=== PATIENT | male | born 1950 | race Caucasian/White ===

== ENCOUNTER 2019-04-04 11:26 | Day surgery (SDC) | payer MEDICARE, OTHER, SELFPAY ==
--- NOTE | 2019-04-04 | PATH_ITS ---
[facility] Accession Number: [id number] . 01 Material submitted: . PART A: colon - ASCENDING COLON POLYP PART B: colon - TRANSVERSE COLON POLYP PART C: colon - DESCENDING COLON POLYP X2 PART D: colon - SIGMOID POLYP X5 . 02 Diagnosis: A. Ascending Colon, Polyp, Biopsy: Tubular adenoma. . B. Transverse Colon, Polyp, Biopsy: Tubular adenoma. . C. Descending Colon, Polyps x2, Biopsies: Tubular adenomas. . D. Sigmoid Colon, Polyps x5, Biopsies: Tubular adenoma in five of six fragments. Hyperplastic poylyp in one fragment. [facility] . 02 Electronically signed: . Ifrah Farrell MD, Pathologist NPI- [id number] . 01 Gross description: . Part A: ASCENDING COLON POLYP: Received in formalin is 1 fragment(s) of charlton, soft tissue measuring 0.6 x 0.4 x 0.3 cm which is entirely submitted and submitted entirely in 1 cassette(s) Part B: TRANSVERSE COLON POLYP: Received in formalin is 1 fragment(s) of charlton, soft tissue measuring 0.6 x 0.4 x 0.3 cm which is entirely submitted and submitted entirely in 1 cassette(s) Part C: DESCENDING COLON POLYP X2: Received in formalin are 2 fragment(s) of charlton, soft tissue measuring 0.3 x 0.3 x 0.3 cm to 0.6 x 0.6 x 0.5 cm which is entirely submitted and submitted entirely in 1 cassette(s). Part D: SIGMOID POLYP X5: Received in formalin are multiple fragment(s) of charlton, soft tissue measuring 0.1 x 0.1 x 0.1 cm to 0.5 x 0.5 x 0.5 cm which is entirely submitted and submitted entirely in 1 cassette(s) /[facility] . 02 Pathologist provided ICD-10: D12.5 . 02 CPT . 060953, 964061, 284887, [id number] Performed at: 01 [facility] [address] [id number] MD Rickie Bustillos MD Phone: [phone] Performed at: [id number] [place], [place] [id number] MD Ifrah Farrell MD Phone: [phone]
[2019-04-04 11:54] VITALS: BP 152/92; PULSE 58; RESP 18; TEMP 37; O2SAT 99; BMI 24.3
[2019-04-04] MEDS: SODIUM CHLORIDE 0.9% 1,000 ML 70 ML IV (11:59)
--- NOTE | 2019-04-04 12:09 | PM.HP.1 ---
History of Present Illness Date Patient Seen: 04/04/19 Time Patient Seen: 12:00 Chief complaint: [id number] Narrative: Patient is a pleasant 58-year-old male who presented for colonoscopy. He does have a personal history of colon polyps, his last colonoscopy was in 2003 at [facility]. His mother had colon cancer in her 60s. He denies rectal bleeding. He denies diarrhea. He does have occasional constipation. Patient History Social History household members: spouse Family & Social History Social History: household members spouse Meds Home Medications Medication Instructions Recorded Confirmed Type amlodipine 5 mg tablet 2.5 mg PO DAILY 11/08/18 04/04/19 History carbamazepine 200 mg tablet 200 mg PO BID tab 11/08/18 04/04/19 History lamotrigine 200 mg tablet 200 mg PO BID 11/08/18 04/04/19 History levothyroxine 50 mcg capsule 50 mcg PO DAILY 11/08/18 04/04/19 History lithium carbonate 150 mg capsule 150 mg PO QID cap 11/08/18 04/04/19 History quetiapine 50 mg tablet 100 mg PO BID 11/08/18 04/04/19 History Allergies Allergy/AdvReac Type Severity Reaction Status Date / Time No Known Drug Allergies Allergy Verified 11/08/18 14:22 Review of Systems Review of Systems All systems reviewed & are unremarkable except as noted in HPI and below Exam Vital Signs (past 8 hours): - 04/04/19 11:54 Temperature 98.6 F Pulse Rate 58 L Respiratory Rate 18 Blood Pressure 152/92 H Pulse Oximetry 99 Oxygen Delivery Method Room Air Const General: cooperative, healthy appearing, comfortable, well developed and well groomed Orientation: oriented x3 Resp Effort & Inspection: normal respiratory effort and able to speak in complete sentences Auscultation: clear to auscultation bilaterally Cardio Rate: regular rate Rhythm: regular rhythm Heart Sounds: S1 normal and S2 normal GI Palpation: soft and no hepatosplenomegaly Auscultation: normal bowel sounds Assessment & Plan Assessment & Plan narrative: 1. Personal history of colon polyps (2003) 2. Family history colon cancer -mother in her 60s -Recommend colonoscopy Regarding the procedure(s), the risks and potential complications, benefits, and alternatives (including not doing the procedure) were discussed with the patient. The risks include but are not limited to bleeding, splenic injury, infection, perforation which may require surgical intervention, missed lesions, and adverse reactions to sedative medicines. After a question and answer period, the patient agreed to proceed with the procedure(s) and gives informed consent.
--- NOTE | 2019-04-04 12:15 | SUR.OPER ---
GLASSES IN LABELED BAG TO PACU WITH PATIENT
[2019-04-04] MEDS: fentaNYL 250 MCG/5 ML INJ IV (12:28)
[2019-04-04] MEDS: MIDAZOLAM 5 MG/5 ML VIAL IV (12:28)
--- NOTE | 2019-04-04 12:46 | SUR.OPER ---
ERBE NOT USED
--- NOTE | 2019-04-04 12:49 | SUR.OPER ---
ANA USED LATER IN PROCEDURE. [id number] SE T AT 3 AND 2
[2019-04-04 13:05] VITALS: BP 173/84; PULSE 61; RESP 14; TEMP 36.9; O2SAT 96
[2019-04-04 13:10] VITALS: BP 141/84; PULSE 55; RESP 12; TEMP 36.9; O2SAT 100
--- NOTE | 2019-04-04 13:13 | PM.OP.ENDO ---
Operative Date/Time/Diagnoses Date of procedure: 04/04/19 Time of procedure: 12:14 Procedure Notes Procedure in detail: Surgeon: Anika Beckett DO Procedure: Colonoscopy with polypectomy Preoperative diagnosis: Personal history of colon polyps, family history colon cancer in first-degree relative Postoperative diagnosis: 9 colon polyps scattered from the ascending to the sigmoid colon Medications: Conscious sedation using 5 mg IV of Midazolam and 100 mcg IV of Fentanyl Preanesthesia Assessment An H and P was performed/updated and the Px?s ASA class is 2. The procedure was discussed in detail with the patient. The potential risks and complications including infection, bleeding, missed lesions, perforation, need for surgery in case of perforation, prolonged hospital stay, and were explained. A brief question and answer period was allotted and once all questions were answered, informed consent was obtained. The patient was brought back to the procedure room and placed on standard monitoring. The patient?s vital signs were monitored continuously throughout the entire procedure. Prior to starting, a timeout was performed to confirm the patient?s identity, allergies, medications, and procedure. Procedure in detail The patient was placed in left lateral decubitus position and once adequate sedation was obtained a MAURICIO was performed. The digital rectal examination did not reveal any palpable lesions. The tip of the colonoscope was placed in the anal canal and advanced without difficulty all the way to the cecum which was identified by the appendiceal orifice and the ileocecal valve. Careful examination of all hill of the colon was performed with irrigation of any residual stool. Patient was noted to have a total of 9 colon polyps these were scattered throughout the entire colon. He had 1 colon polyp in the ascending colon, 1 polyp in the transverse colon, 2 colon polyps in the descending colon, 5 colon polyps in the sigmoid colon. These ranged in size from 3 mm to 16 mm. Three colon polyps were removed with hot snare, 2 colon polyps were removed with cold biopsy, the remainder of the colon polyps were removed with cold snare. Diverticulosis was noted scattered throughout the sigmoid colon. The patient tolerated the procedure well and will be brought back to the recovery area to be discharged once criteria are met. The prep was judged to be good/excellent and adequate to identify polyps less than 5 mm. The withdrawal time was 29min 12sec. The total physician intraservice time was 45min. Complications There were no complications and estimated blood loss was minimal. Recommendations: Resume previous diet Continue outPx medications Follow up pathology results Repeat colonoscopy will be determined after pathology results are reviewed An emergency contact number was given to the patient for any complications related to the procedure
[2019-04-04 13:14] VITALS: BP 152/83; PULSE 59; RESP 15; TEMP 36.9; O2SAT 100
[2019-04-04 13:25] VITALS: BP 150/82; PULSE 60; RESP 16; TEMP 36.9; O2SAT 100
== END 2019-04-04 13:30 | disposition home or self-care (01) ==
PROVIDERS: PCP Internal Medicine; Visit Provider Student in an Organized Health Care Education/Training Program
PROC: 0DJD8ZZ Inspection of Lower Intestinal Tract, Via Natural or Artificial Opening Endoscopic (ICD-10-PCS; CPT 45378; principal; 2019-04-04 12:30)
DX: Z86.010 Personal history of colon polyps (principal); Z80.0 Family history of malignant neoplasm of digestive organs; D12.5 Benign neoplasm of sigmoid colon; D12.2 Benign neoplasm of ascending colon; D12.3 Benign neoplasm of transverse colon; D12.4 Benign neoplasm of descending colon
CPT/HCPCS: 45385; 45380; 88305; J2250; J3010

== ENCOUNTER → 2019-07-25 09:54 | Outpatient (CLI) | payer MEDICARE, OTHER, SELFPAY ==
[2019-07-25 10:50] LABS: BUN Creatinine Ratio 17.7 (6-22); Blood Urea Nitrogen 23 mg/dL (9-20); Carbon Dioxide 32 mmol/L (22-32); Chloride 105 mmol/L (98-107); Estimated Glomerular Filt Rate 55.2 mL/min (>60); Glucose 98 mg/dL (80-110); HEMOLYSIS < 15 (0-50); Potassium 4.8 mmol/L (3.4-5.1); Sodium 141 mmol/L (137-145)
[2019-07-25 10:59] LABS: Lithium 1.1 mmol/L (0.6-1.2)
[2019-07-25 11:33] LABS: Thyroid Stimulating Hormone 2.51 uIU/mL (0.47-4.68)
== END ==
PROVIDERS: PCP Internal Medicine; Visit Provider Internal Medicine
DX: F31.70 Bipolar disorder, currently in remission, most recent episode unspecified (principal)
CPT/HCPCS: 36415; 80048; 80178; 84443

== ENCOUNTER → 2020-08-15 19:35 | Outpatient (ROUT) | payer MEDICARE, OTHER, SELFPAY ==
[2020-08-15 19:52] LABS: Add Manual Diff / Slide Review NO; Basophils Absolute Auto 0 /uL (0-100); Basophils Percent Auto 0.7 % (0-2); Eosinophils Absolute Auto 200 /uL (0-450); Eosinophils Percent Auto 3.7 % (2-4); Hematocrit 43.8 % (41-53); Hemoglobin 14.7 g/dL (13.5-17.5); Lymphocytes Absolute Auto 1700 /uL (1100-4500); Lymphocytes Percent Auto 26.1 % (25-40); Mean Corpuscular HGB Conc 33.5 % (30-36); Mean Corpuscular Hemoglobin 33.1 PG (26-34); Monocytes Absolute Auto 400 /uL (0-900); Monocytes Percent Auto 5.9 % (3-14); Neutrophils Absolute Auto 4100 /uL (1500-7000); Neutrophils Percent Auto 63.6 % (50-75); Platelet Count 212 X10^3/uL (150-400); Red Blood Cell Count 4.42 X10^6/uL (4.5-5.9); Red Cell Distribution Width 12.8 % (11.6-14.8); White Blood Cell Count 6.4 X10^3/uL (4.5-11.0)
[2020-08-15 20:04] LABS: Lithium 1.3 mmol/L (0.6-1.2)
[2020-08-15 20:07] LABS: BUN Creatinine Ratio 15.5 (6-22); Blood Urea Nitrogen 22 mg/dL (9-20); Calcium 9.7 mg/dL (8.4-10.2); Carbon Dioxide 30 mmol/L (22-32); Chloride 108 mmol/L (98-107); Cholesterol 240 mg/dL (140-199); Estimated Glomerular Filt Rate 49.7 mL/min (>60); Glucose 92 mg/dL (80-110); HDL Cholesterol 71 mg/dL (40-60); HEMOLYSIS < 15 (0-50); LDL Cholesterol Calculated 125 mg/dL (<100); Potassium 4.6 mmol/L (3.4-5.1); Sodium 142 mmol/L (137-145); Triglycerides 222 mg/dL (35-150)
[2020-08-15 20:36] LABS: Prostate Specific Antigen 1.25 ng/mL (0.10-4.00)
[2020-08-15 20:37] LABS: TSH w/ Reflex to FT4 2.05 uIU/mL (0.47-4.68)
[2020-08-15 20:55] LABS: Vitamin B12 466 pg/mL (239-931)
[2020-08-19 17:18] LABS: Alpha-1-Globulin 0.2 g/dL (0.0-0.4); Alpha-2-Globulin 0.7 g/dL (0.4-1.0); Gamma Globulin 0.7 g/dL (0.4-1.8); Globulin Total 2.5 g/dL (2.2-3.9); Protein, Total 6.5 g/dL (6.0-8.5)
== END ==
PROVIDERS: PCP Internal Medicine; Visit Provider Internal Medicine
DX: N18.30 Chronic kidney disease, stage 3 unspecified (principal); R73.01 Impaired fasting glucose; E78.2 Mixed hyperlipidemia; E53.8 Deficiency of other specified B group vitamins; E03.9 Hypothyroidism, unspecified; D47.2 Monoclonal gammopathy; N40.0 Benign prostatic hyperplasia without lower urinary tract symptoms; F31.70 Bipolar disorder, currently in remission, most recent episode unspecified
CPT/HCPCS: 80048; 80061; 80178; 82607; 83036; 84153; 84155; 84165; 84443; 85025

== ENCOUNTER → 2020-08-21 12:05 | Outpatient (CLI) | payer MEDICARE, OTHER, SELFPAY ==
--- NOTE | 2020-08-21 | DI.CT.S_ITS ---
PROCEDURE: CT HEAD/BRAIN WO CON INDICATIONS: Repeated falls TECHNIQUE: Noncontrast 4.5 mm thick angled axial sections acquired from the foramen magnum to the vertex, with coronal and sagittal reformats. For radiation dose reduction, the following was used: automated exposure control, adjustment of mA and/or kV according to patient size. COMPARISON: None. FINDINGS: Image quality: Excellent. CSF spaces: Basal cisterns are patent. No extra-axial fluid collections. The ventricles are symmetric in size and shape. Brain: No intracranial bleeds or masses. There is cerebral volume loss for age, with resultant ventricular and sulcal prominence. There are periventricular and deep white matter chronic small vessel ischemic changes. There is intracranial internal carotid artery atherosclerosis. Skull and face: Calvarium and visualized facial bones appear intact, without suspicious lesions. Sinuses: Partially visualized mucous retention cyst versus polyp noted in the left maxillary sinus. The mastoids are clear. IMPRESSION: 1. No acute intracranial disease process. 2. No intracranial hemorrhage. Dictated by: Isabel Saldana MD, PhD on 08/21/2020 at 12:27 Approved by: Isabel Saldana MD, PhD on 08/21/2020 at 12:30
[2020-08-25 15:08] LABS: Immunoglobulin A, Serum 106 mg/dL (61-437); Immunoglobulin G,Serum 530 mg/dL (603-1613); Immunoglobulin M, Serum 224 mg/dL (20-172)
--- NOTE | 2020-08-27 14:47 | ONC.MSW ---
Description: New Referral Navigation Reason for Referral: Monoclonal Gammopathy-rule out Myeloma Activity: Reviewed this referral for medical status, acuity, and immediate needs. Recent labwork showed protein in the blood, which is a new finding. Pt has multiple health issues. He was assessed at the /Neurology to have a lithium or carbamazepine induced tremor, caused by long-term use as prescribed for his bipolar disorder. He has a tremor, which has been reduced with the use of propranalol, however, he has had several falls over the last few months, is using a cane intermittently, has a slow, shuffling gait, poor balance, stiffness, soft speech, difficulty standing and fear of falling. Parkinson's was ruled out, even though he noted that both his father and paternal aunt had Parkinson's. He also has longstanding chronic kidney disease due to the lithium use. He presented w/Dr. Larios in no acute distress or immediate needs. Pt is also , retired early due to bipolar disorder, which has presented as severe depression, manic episodes, and a few suicide attempts at the time of diagnosis (late ). Forwarded to scheduling for next available initial consult visit.
== END ==
PROVIDERS: PCP Internal Medicine; Referring Provider Internal Medicine; Visit Provider Internal Medicine
DX: R29.6 Repeated falls (principal)
CPT/HCPCS: 36415; 70450; 82784; 84155; 86334

== ENCOUNTER → 2020-09-24 16:32 | Outpatient (CLI) | payer MEDICARE, OTHER, SELFPAY ==
[2020-09-24 17:22] LABS: Lactate Dehydrogenase 400 U/L (313-618); Uric Acid 5.4 mg/dL (3.5-8.5)
[2020-09-25 14:28] LABS: Free Kappa Lt Chains, Serum 24.9 mg/L (3.3-19.4); Free Lambda Lt Chains,Serum 10.1 mg/L (5.7-26.3)
[2020-09-26 15:38] LABS: M-Spike % Not Observed % (Not Observed); Total Urine Protein < 4.0 mg/dL (Not Estab.)
== END ==
PROVIDERS: PCP Internal Medicine; Referring Provider Internal Medicine; Visit Provider Internal Medicine
DX: D47.2 Monoclonal gammopathy (principal)
CPT/HCPCS: 36415; 83615; 83883; 84156; 84166; 84550; 86335

== ENCOUNTER → 2020-10-02 11:21 | Outpatient (CLI) | payer MEDICARE, OTHER, SELFPAY ==
[2020-10-04 12:02] LABS: Protein (Total) Urine Random 14 mg/dL (0-12)
[2020-10-04 12:11] LABS: Collection Time Urine 24 Hours; Total Protein 24 Hour Urine 672 mg/day (42-225); Total Volume Urine 4800 mL
== END ==
PROVIDERS: PCP Internal Medicine; Referring Provider Internal Medicine; Visit Provider Internal Medicine
DX: D47.2 Monoclonal gammopathy (principal)
CPT/HCPCS: 84156

== ENCOUNTER → 2020-10-22 16:20 | Oncology outpatient (ONC) | payer MEDICARE, OTHER, SELFPAY ==
[2020-09-24 15:32] VITALS: BP 134/93; PULSE 50; RESP 18; TEMP 36.2; O2SAT 100
--- NOTE | 2020-09-24 16:15 | P.CONONC_ITS ---
History of Present Illness - Data of Consult Primary Care Provider: Og Larios MD - Consult Narrative Narrative: Tunde Hale is a 69 year old male referred for further evaluation of an IgM monoclonal gammopathy. He has a long history of tremors for which she was star glen on propranolol with improvement. He was seen by Neurology about 8 months ago when he started the propranolol and had concerns about Parkinson's which was not confirmed at that visit. He notes that over the past 6 months he has been having he increasing memory loss, confusion and nervousness. The symptoms have waxed and waned for several years but her worse over the last 6 months. He also notes that his tremors are more of a problem. He is having increasing difficulty with his balance and has had frequent falls. He is now starting to use a cane recently. He notes that he has pain in his back that is worse when he gets up in the morning better when he moves around and takes aspirin. He has been constipated but that has not changed over the past several years but does not have any urinary symptoms. He has dry skin but no rash. He does not have any lumps or bumps anywhere. He has not had anorexia or unintended weight loss, nausea, vomiting, mouth sores, trouble swallowing, cough or shortness of breath. All other systems are negative. He recently saw Dr. Og Larios and due to concerns about peripheral neuropathy he had lab tests done including B12 and folate were normal. Protein electrophoresis showed a faint band in the gamma region. Subsequent immunofixation of the serum showed a IgM kappa paraprotein. IgG was 530 (lower limit of normal 603), IgM was 224 (upper end of normal 172) and IgA was normal at 108. TSH and PSA were normal as was a CBC. Metabolic panel at Dr. Larios is visit showed a creatinine of 1.42 which is a chronic finding. Because of his m onoclonal paraprotein in the setting of worsening neurologic issues he is now referred for hematology oncology consultation. Past medical history 1. Previous surgeries include tonsillectomy 2. His mother had colorectal cancer but family history is otherwise negative 3. He has been a 1 pack-a-day smoker over the years who quit in 2018. He is a former drinker but not currently. He is accompanied by his who is very supportive. 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 He was very active but has been much less active over the last 6 months as his neurologic symptoms have worsened. 4. No known drug allergies 5. Current medications. Include aspirin 325 mg daily, carbamazepine 200 mg twice a day, lamotrigine gain ER 200 mg twice a day, Synthroid 0.05 mg daily, lithium 150 mg 5 times a day, as needed loratadine, propranolol 10 mg twice a day, quietiapine 100 mg at bedtime, terbinafine 250 mg daily, vitamin-D 46128 units once a week 6. History of bipolar affective disorder 7. Chronic kidney disease 8. Hypothyroidism, on replacement 9. History of eczematous dermatitis 10. He has a history of high blood pressure 11. He denies diabetes, rheumatic fever, tuberculosis, heart attacks, strokes, stomach ulcers, pneumonia or any kind of cancer. CC: Stuart Aragon MD Home Medications and Allergies Home Medications Medication Instructions Recorded Confirmed Type carbamazepine 200 mg tablet 200 mg PO BID tab 11/08/18 09/24/20 History lamotrigine 200 mg tablet 200 mg PO BID 11/08/18 09/24/20 History levothyroxine 50 mcg capsule 50 mcg PO DAILY 11/08/18 09/24/20 History lithium carbonate 150 mg capsule 150 mg PO 5XD cap 11/08/18 09/24/20 History quetiapine 50 mg tablet 100 mg PO BID 11/08/18 09/24/20 History aspirin 325 mg PO DAILY 09/24/20 09/24/20 History desonide 1 applic TOPICAL DAILY 09/24/20 09/24/20 History loratadine [Allerclear] 10 mg PO DAILY 09/24/20 09/24/20 History propranolol 10 mg PO QID 09/24/20 09/24/20 History Allergies Allergy/AdvReac Type Severity Reaction Status Date / Time No Known Drug Allergies Allergy Verified 11/08/18 14:22 Review of Systems - Patient Self-Reported Symptoms SR Gastrointestinal issues: Constipation SR Musculoskeletal issues: Muscle weakness, Back or neck pain, Cold hands or feet, Difficulty walking SR Neuro issues: Lightheaded/dizzy, Tremors or shaking, Difficulty balancing Exam Vital signs: Vital Signs Temp Pulse Resp BP Pulse Ox 09/24/20 15:32 97.1 F L 50 L 18 134/93 H 100 Intake and Output 09/24/20 09/24/20 09/24/20 07:59 15:59 23:59 Other: Weight 76.7 kg Patient Weight 09/24/20 23:59 Weight 76.7 kg Narrative: He was awake, alert and oriented x3. He was able to get from the chair to the examination table by himself but was unsteady during this process. There was no lymph node enlargement in the cervical, supraclavicular, axillary, inguinal femoral regions. Lungs were clear. The abdomen was soft and nontender without any palpable hepatosplenomegaly or masses. Neurologic exam showed nystagmus that did not extinguish on extreme lateral gaze bilaterally. He also had nystagmus with upward gaze that did extinguish. Extraocular movements were otherwise intact. He reported decreased sensation in his mid walker on the right to pinprick but it was not consistently demonstrated on exam. He did not have consistent findings of a stocking-glove decrease in pinprick or light touch to correspond to a peripheral neuropathy. He had weakness of his left foot. He was not able to rise up on to his left heel toe walk wears he could on the right. Upper extremity strength was normal. Reflexes were 1+ and symmetric. Assessment and Plan (1) MGUS (monoclonal gammopathy of unknown significance) Status: Acute Mr. Hale has a low level IgM monoclonal gammopathy. He does have mild suppression of his IgG levels. His CBC is normal. I explained that this finding could be part of the normal aging process. Monoclonal gammopathy of undetermined significance is seen in 1-2% of patients over the age of 50, 30-40% of patients over the age of 80. When it is part of the normal aging process, IgG subtype is most common and the paraprotein is typically present in a small amount. MGUS can also be associated with underlying lymphoproliferative disorders. Non-Hodgkin's lymphoma such as lymphoplasmacytic lymphoma or Waldenstrm's macroglobulinemia, or small lymphocytic lymphoma/chronic lymphocytic leukemia can be associated with this. Lymphoproliferative disorders can also be associated with peripheral neuropathy. He his exam is not suggestive of this although he does have abnormal neurologic findings. Will evaluate his IgM monoclonal paraprotein further with a 24 hour urine for protein, urine protein electrophoresis, free light chain assay, LDH and uric aci d. He will return afterwards to review results. If there is persistent concern about a lymphoproliferative disorder, a bone marrow examination would be an appropriate next step. We also discussed the fact that his neurologic findings were not typical of a lymphoproliferative disorder associated with a monoclonal paraprotein. He will follow-up with his neurologist, Dr. Ifrah Piña, at [facility] and try to get this appointment in the near future. I will plan to see him back in mid October when the results of today's screening labs will be available and hopefully he will have also had a chance to follow- up with Dr. Piña. Further plans such as a bone marrow examination will be made at that time and he was instructed to call if he has any problems or concerns that arise in the interim. I personally spent 49 minutes in today's [id number] visit with greater than 50% of the time spent in counseling regarding the issues outlined above. Impression: 1. IgM monoclonal gammopathy demonstrated on immunofixation, faint band on protein electrophoresis 2. Neurologic findings as noted above, not consistent with an uncomplicated peripheral neuropathy 3. Progressive weakness, poor balance, and falls over the last [address] scan from August 21 was negative 4. Other medical problems as listed above Recommendations: 1. 24 hour urine for protein, urine immunofixation, and urine protein electrophoresis 2. Serum free light chain assay, LDH and uric acid 3. Patient was advised to follow-up with his neurologist, Dr. Ifrah Piña, as soon as possible 4. Return here mid October to follow up on labs and his neurology assessment 5. Further plan such as a bone marrow examination to be considered depending upon his status at that time. Thank Dr. Og Larios for referring this very pleasant and interesting patient.
[2020-10-22 16:51] VITALS: BP 134/83; PULSE 50; RESP 18; TEMP 36.6; O2SAT 100
--- NOTE | 2020-10-22 18:14 | ONC.PN ---
PN -Subjective Interval history: Tunde Hale is a 70 year old male seen for follow-up of an IgM monoclonal gammopathy. He has a long history of tremors for which she was started on propranolol with improvement. He was seen by Neurology about 8 months ago when he started the propranolol and had concerns about Parkinson's which was not confirmed at that visit. He notes that over the past 6 months he has been having he increasing memory loss, confusion and nervousness. The symptoms have waxed and waned for several years but her worse over the last 6 months. He also notes that his tremors are more of a problem. He is having increasing difficulty with his balance and has had frequent falls. He is now starting to use a cane recently. He notes that he has pain in his back that is worse when he gets up in the morning better when he moves around and takes aspirin. He has been constipated but that has not changed over the past several years but does not have any urinary symptoms. He has dry skin but no rash. He does not have any lumps or bumps anywhere. He has not had anorexia or unintended weight loss, nausea, vomiting, mouth sores, trouble swallowing, cough or shortness of breath. All other systems are negative. He recently saw Dr. Og Larios and due to concerns about peripheral neuropathy he had lab tests done including B12 and folate were normal. Protein electrophoresis showed a faint band in the gamma region. Subsequent immunofixation of the serum showed a IgM kappa paraprotein. IgG was 530 (lower limit of normal 603), IgM was 224 (upper end of normal 172) and IgA was normal at 108. TSH and PSA were normal as was a CBC. Metabolic panel at Dr. Larios is visit showed a creatinine of 1.42 which is a chronic finding. Because of his monoclonal paraprotein in the setting of worsening neurologic issues he was seen in consultation on September 24. Additional studies were obtained and he comes in today to review results. Past medical history 1. Previous surgeries include tonsillectomy 2. His mother had colorectal cancer but family history is otherwise negative 3. He has been a 1 pack-a-day smoker over the years who quit in 2018. He is a former drinker but not currently. He is accompanied by his who is very supportive. 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 He was very active but has been much less active over the last 6 months as his neurologic symptoms have worsened. 4. No known drug allergies 5. Current medications. Include aspirin 325 mg daily, carbamazepine 200 mg twice a day, lamotrigine gain ER 200 mg twice a day, Synthroid 0.05 mg daily, lithium 150 mg 5 times a day, as needed loratadine, propranolol 10 mg twice a day, quietiapine 100 mg at bedtime, terbinafine 250 mg daily, vitamin-D 13191 units once a week 6. History of bipolar affective disorder 7. Chronic kidney disease 8. Hypothyroidism, on replacement 9. History of eczematous dermatitis 10. He has a history of high blood pressure 11. He denies diabetes, rheumatic fever, tuberculosis, heart attacks, strokes, stomach ulcers, pneumonia or any kind of cancer. - Patient Self-Reported Symptoms SR Gastrointestinal issues: Constipation SR Musculoskeletal issues: Muscle weakness, Back or neck pain, Cold hands or feet, Difficulty walking SR Neuro issues: Tremors or shaking, Difficulty balancing Home Medications and Allergies Home Medications Medication Instructions Recorded Confirmed Type carbamazepine 200 mg tablet 200 mg PO BID tab 11/08/18 09/24/20 History lamotrigine 200 mg tablet 200 mg PO BID 11/08/18 09/24/20 History levothyroxine 50 mcg capsule 50 mcg PO DAILY 11/08/18 09/24/20 History lithium carbonate 150 mg capsule 150 mg PO 5XD cap 11/08/18 09/24/20 History quetiapine 50 mg tablet 100 mg PO BID 11/08/18 09/24/20 History aspirin 325 mg PO DAILY 09/24/20 09/24/20 History desonide 1 applic TOPICAL DAILY 09/24/20 09/24/20 History loratadine [Allerclear] 10 mg PO DAILY 09/24/20 09/24/20 History propranolol 10 mg PO QID 09/24/20 09/24/20 History Allergies Allergy/AdvReac Type Severity Reaction Status Date / Time No Known Drug Allergies Allergy Verified 11/08/18 14:22 Exam Vital signs: Vital Signs Temp Pulse Resp BP Pulse Ox 10/22/20 16:51 98 F 50 L 18 134/83 100 Intake and Output 10/22/20 10/22/20 10/22/20 07:59 15:59 23:59 Other: Weight 75.8 kg Patient Weight 10/22/20 23:59 Weight 75.8 kg Narrative: He was awake, alert and oriented x3. He was in no acute distress. Assessment and Plan (1) MGUS (monoclonal gammopathy of unknown significance) Status: Acute Mr. Hale has a low level IgM monoclonal gammopathy. He does have mild suppression of his IgG levels. His CBC is normal. Additional testing including a urine immunofixation, uric acid and LDH were normal. Free light change assay showed a ratio of 2.47 which is minimally elevated. These findings are consistent with monoclonal gammopathy of undetermined significance. He does have neurologic findings but he did not have a simple peripheral neuropathy picture when he was examined at his initial consultation. He has a follow-up appoint with his neurologist next week and I suggested that he pursue that as the next step. If there remain some concern regarding a possible underlying lymphoproliferative disorder, we could do further testing with a bone marrow examination. However, I think it would be low yield at this point with regard to his neurologic issues. He will see his neurologist next week. I would like to see him back when his neurology assessment is complete. He will let us know when that occurs and will have him return at that time. He will need ongoing follow-up of his MGUS. Impression: 1. IgM monoclonal gammopathy demonstrated on immunofixation, faint band on protein electrophoresis 2. Neurologic findings not consistent with an uncomplicated peripheral neuropathy on my exam at the time his initial consultation 3. Progressive weakness, poor balance, and falls over the last [address] scan from August 21 was negative 4. Other medical problems as listed above 5. Urine immunofixation, LDH were normal with a mild elevation of his free light chain ratio and no clear evidence of an underlying lymphoproliferative disorder Recommendations: 1. He will follow-up with his neurologist 2. Return here afterwards to assess whether further workup of his MGUS would be appropriate I spent 8 minutes in chart review, 14 minutes with the patient, 2 minutes writing orders, and 6 minutes in documentation for a total of 30 minutes..
== END ==
PROVIDERS: PCP Internal Medicine; Referring Provider Internal Medicine; Visit Provider Internal Medicine
DX: D47.2 Monoclonal gammopathy (principal); R25.1 Tremor, unspecified; I12.9 Hypertensive chronic kidney disease with stage 1 through stage 4 chronic kidney disease, or unspecified chronic kidney disease; N18.9 Chronic kidney disease, unspecified; E03.9 Hypothyroidism, unspecified; M62.81 Muscle weakness (generalized); F31.9 Bipolar disorder, unspecified; Z91.81 History of falling; Z87.891 Personal history of nicotine dependence
CPT/HCPCS: 36415; 83615; 83883; 84156; 84166; 84550; 86335; 99204; 99214

== ENCOUNTER → 2020-12-04 10:32 | Outpatient (CLI) | payer MEDICARE, OTHER, SELFPAY ==
[2020-12-04] MEDS: COVID-19 VACC #1, MRNA(MOD) 100 MCG/0.5 ML VIAL IM (10:37)
== END ==
PROVIDERS: PCP Internal Medicine; Visit Provider Internal Medicine
DX: Z23 Encounter for immunization (principal)
CPT/HCPCS: 0011A; 91301

== ENCOUNTER → 2021-01-01 09:01 | Outpatient (CLI) | payer MEDICARE, OTHER, SELFPAY ==
[2021-01-01] MEDS: COVID-19 VACC #2, MRNA(MOD) 100 MCG/0.5 ML VIAL IM (09:06)
== END ==
PROVIDERS: PCP Internal Medicine; Visit Provider Internal Medicine
DX: Z23 Encounter for immunization (principal)
CPT/HCPCS: 0012A; 91301

== ENCOUNTER 2021-01-23 15:04 | Emergency (ER) | payer MEDICARE, OTHER, SELFPAY ==
[2021-01-23 15:12] VITALS: BP 146/80; PULSE 57; RESP 17; TEMP 36.2; O2SAT 99
--- NOTE | 2021-01-23 15:15 | DI.RAD.S_ITS ---
PROCEDURE: XR ACUTE ABDOMEN SERIES INDICATIONS: Abdominal pain. TECHNIQUE: One view chest and two views of the abdomen were acquired. COMPARISON: None. FINDINGS: Surgical changes and devices: None. Chest: Lungs are clear. Heart size is normal. No pleural effusions. No pneumoperitoneum. Abdomen: Moderate fecal debris noted throughout the colon and rectum without evidence of bowel obstruction. Bones: Degenerative changes noted lumbar spine. No osseous lesion. IMPRESSION: No evidence of bowel obstruction. No acute cardiopulmonary findings Moderate fecal debris present throughout the colon Degenerative lumbar spine Dictated by: Volodymyr Hough M.D. on 01/23/2021 at 16:00 Approved by: Volodymyr Hough M.D. on 01/23/2021 at 16:05
[2021-01-23 16:27] LABS: PTT Partial Thromboplastin Tim 34 SECONDS (26.4-36.2)
[2021-01-23 16:28] LABS: Alanine Aminotransferase 7 IU/L (<50); Albumin 4.3 g/dL (3.5-5.0); Albumin Globulin Ratio 1.7 (1.0-2.8); Alkaline Phosphatase 101 U/L (38-126); Aspartate Aminotransferase 26 IU/L (17-59); BUN Creatinine Ratio 10.7 (6-22); Bilirubin Total 0.5 mg/dL (0.2-1.3); Blood Urea Nitrogen 16 mg/dL (9-20); Calcium 9.8 mg/dL (8.4-10.2); Carbon Dioxide 31 mmol/L (22-32); Chloride 104 mmol/L (98-107); Estimated Glomerular Filt Rate 46.9 mL/min (>60); Globulin 2.6 g/dL (1.7-4.1); Glucose 93 mg/dL (80-110); HEMOLYSIS < 15 (0-50); Lipase 97 U/L (23-300); Potassium 4.1 mmol/L (3.4-5.1); Sodium 142 mmol/L (137-145); Total Protein 6.9 g/dL (6.3-8.2)
--- NOTE | 2021-01-23 16:29 | ED.ABDPAIN ---
HPI - Abdominal Pain General Chief Complaint: Abdominal Pain Stated Complaint: BOWEL BLOCKAGE 2WKS Time Seen by Provider: 01/23/21 16:29 Source: patient and family Mode of arrival: Ambulatory Limitations: no limitations History of Present Illness HPI narrative: This is a 70-year-old male comes emergency department with concern for bowel obstruction. Patient has been constipated for about 10-12 days. Patient denies any, he had nausea and vomiting yesterday and for a pretty much everything he eaten for the past 12 hours. He denies any abdominal is mainly mildly bloated or distended. He states he has passed a small amount of gas but it has been decreasing in amount been urinating regularly. He states he has been eating regularly. His states she pushes fluids and encouraged him to hydrate regularly. Patient states he typically has a bowel movement twice weekly. He tried Colace yesterday and MiraLax and then immediately threw up after the MiraLax. He also had a fall right before he threw up and struck the left side of his chest and has some bruising and some mild pain. Patient states he does take lithium and multiple medications for bipolar, he recently started any Parkinson's medication a month ago. He denies any prior abdominal surgeries. He denies any allergies to medications. He is accompanied by his . He had home health care come to the house for intake yesterday. Related Data Home Medications Medication Instructions Recorded Confirmed carbamazepine 200 mg tablet 200 mg PO BID tab 11/08/18 09/24/20 lamotrigine 200 mg tablet 200 mg PO BID 11/08/18 09/24/20 levothyroxine 50 mcg capsule 50 mcg PO DAILY 11/08/18 09/24/20 lithium carbonate 150 mg capsule 150 mg PO 5XD cap 11/08/18 09/24/20 quetiapine 50 mg tablet 100 mg PO BID 11/08/18 09/24/20 aspirin 325 mg PO DAILY 09/24/20 09/24/20 desonide 1 applic TOPICAL DAILY 09/24/20 09/24/20 loratadine [Allerclear] 10 mg PO DAILY 09/24/20 09/24/20 propranolol 10 mg PO QID 09/24/20 09/24/20 Allergies Allergy/AdvReac Type Severity Reaction Status Date / Time No Known Drug Allergies Allergy Verified 11/08/18 14:22 Review of Systems Review of Systems ROS Unobtainable: All systems reviewed & are unremarkable except as noted in HPI and below Patient History Social History household members: spouse Smoking Status: Never smoker Smoking Status: Never smoker alcohol intake frequency: other Substance Use Type: does not use Exam Narrative Exam Narrative: GENERAL: Alert and oriented x three, well-nourished male in mild distress. HEENT: Head normocephalic, atraumatic, EOMI, pupils reactive, face symmetric, moist mucous membranes NECK: Supple, full range of motion CARDIOVASCULAR: Regular rate and rhythm without murmurs, rubs or gallops. RESPIRATORY: Breath sounds equal bilaterally, no wheezes rales or rhonchi. Patient has some very mild left-sided chest pain. Patient does have some ecchymosis, no flail chest or subcutaneous emphysema. ABDOMEN: Soft, nontender. Normoactive bowel sounds all 4 quadrants. No guarding or rebound, rigidity, no mass, very mildly distended. : No CVA tenderness EXTREMITIES: Normal range of motion, no clubbing or edema. Neurovascularly intact NEUROLOGICAL: Cranial nerves II through XII grossly intact. Moving all extremities SKIN: Warm, dry, no petechiae, no rashes or lesions. Initial Vital Signs Initial Vital Signs: Vital Signs Temperature 97.2 F L 01/23/21 15:12 Pulse Rate 57 L 01/23/21 15:12 Respiratory Rate 17 01/23/21 15:12 Blood Pressure 146/80 H 01/23/21 15:12 Pulse Oximetry 99 01/23/21 15:12 Course Orders Ordered: ED Orders 01/23/21 15:15 XR acute abdomen series Stat 01/23/21 16:05 Complete Blood Count AUTO DIFF Stat Comprehensive Metabolic Panel Stat Lipase Stat Partial Thromboplastin Time Stat Prothrombin Time INR Stat 01/23/21 16:52 CT abdomen pelvis w con Stat [place] Stat Discontinued Medications Sodium Chloride (Normal Saline 0.9%) 1,000 mls @ 1,000 mls/hr IV BOLUS ONE Stop: 01/23/21 17:51 Last Admin: 01/23/21 17:03 Dose: 1,000 mls/hr Documented by: Magnesium Citrate (Magnesium Citrate 300 Ml Solution) 300 ml PO NOW ONE Stop: 01/23/21 18:25 Vital Signs Vital signs: Vital Signs - 8 hr 01/23/21 15:12 01/23/21 17:40 01/23/21 18:00 Temperature 97.2 F L Pulse Rate 57 L 47 L 49 L Respiratory Rate 17 Blood Pressure 146/80 H 140/78 Pulse Oximetry 99 100 100 MDM - Abdominal Pain Lab Data Attestation: I reviewed the patient's lab results. Result diagrams: 01/23/21 16:05 01/23/21 16:05 Labs: Lab Results 01/23/21 01/23/21 01/23/21 Range/Units 16:05 16:05 16:05 WBC 6.9 (4.5-11.0) X10^3/uL RBC 4.33 L (4.5-5.9) X10^6/uL Hgb 14.1 (13.5-17.5) g/dL Hct 42.5 (41-53) % MCV 98.1 (80-100) fL MCH 32.5 (26-34) PG MCHC 33.1 (30-36) % RDW 12.6 (11.6-14.8) % Plt Count 206 (150-400) X10^3/uL Neut % (Auto) 64.7 (50-75) % Lymph % (Auto) 24.6 L (25-40) % [place] % (Auto) 7.7 (3-14) % Eos % (Auto) 2.6 (2-4) % Baso % (Auto) 0.4 (0-2) % Neut # (Auto) 4500 (4126-5800) /uL Lymph # (Auto) 1700 (0096-8191) /uL [place] # (Auto) 500 (0-900) /uL Eos # (Auto) 200 (0-450) /uL Baso # (Auto) 0 (0-100) /uL PT 12.0 (10.1-12.7) SECONDS INR 1.0 (0.9-1.3) APTT 34 (26.4-36.2) SECONDS Sodium 142 (137-145) mmol/L Potassium 4.1 (3.4-5.1) mmol/L Chloride 104 (98-107) mmol/L Carbon Dioxide 31 (22-32) mmol/L BUN 16 (9-20) mg/dL Creatinine 1.49 H (0.66-1.25) mg/dL Estimated GFR 46.9 L (>60) mL/min BUN/Creatinine Ratio 10.7 (6-22) Glucose 93 (80-110) mg/dL Calcium 9.8 (8.4-10.2) mg/dL Total Bilirubin 0.5 (0.2-1.3) mg/dL AST 26 (17-59) IU/L ALT 7 (<50) IU/L Alkaline Phosphatase 101 (38-126) U/L Total Protein 6.9 (6.3-8.2) g/dL Albumin 4.3 (3.5-5.0) g/dL Globulin 2.6 (1.7-4.1) g/dL Albumin/Globulin Ratio 1.7 (1.0-2.8) Lipase 97 (23-300) U/L [place] (0.6-1.2) mmol/L / Range/Units 16:05 WBC (4.5-11.0) X10^3/uL RBC (4.5-5.9) X10^6/uL Hgb (13.5-17.5) g/dL Hct (41-53) % MCV (80-100) fL MCH (26-34) PG MCHC (30-36) % RDW (11.6-14.8) % Plt Count (150-400) X10^3/uL Neut % (Auto) (50-75) % Lymph % (Auto) (25-40) % [place] % (Auto) (3-14) % Eos % (Auto) (2-4) % Baso % (Auto) (0-2) % Neut # (Auto) (4994-1741) /uL Lymph # (Auto) (0899-9157) /uL [place] # (Auto) (0-900) /uL Eos # (Auto) (0-450) /uL Baso # (Auto) (0-100) /uL PT (10.1-12.7) SECONDS INR (0.9-1.3) APTT (26.4-36.2) SECONDS Sodium (137-145) mmol/L Potassium (3.4-5.1) mmol/L Chloride (98-107) mmol/L Carbon Dioxide (22-32) mmol/L BUN (9-20) mg/dL Creatinine (0.66-1.25) mg/dL Estimated GFR (>60) mL/min BUN/Creatinine Ratio (6-22) Glucose (80-110) mg/dL Calcium (8.4-10.2) mg/dL Total Bilirubin (0.2-1.3) mg/dL AST (17-59) IU/L ALT (<50) IU/L Alkaline Phosphatase (38-126) U/L Total Protein (6.3-8.2) g/dL Albumin (3.5-5.0) g/dL Globulin (1.7-4.1) g/dL Albumin/Globulin Ratio (1.0-2.8) Lipase (23-300) U/L [place] 1.2 (0.6-1.2) mmol/L Imaging Data Abdominal x-ray: Radiologist's Impression: [address] [id number] ReportSigned Patient: Tunde Hale EMR#: [id number]: 1950cct:[id number]/Sex: 70 / MDate of Service: 01/23/21Loc: EDAccession Number: [id number] Procedure: XR acute abdomen series Ordering Provider: Pamela Sparrow D.O. PROCEDURE: XR ACUTE ABDOMEN SERIES INDICATIONS: Abdominal pain. TECHNIQUE: One view chest and two views of the abdomen were acquired. COMPARISON: None. FINDINGS: Surgical changes and devices: None. Chest: Lungs are clear. Heart size is normal. No pleural effusions. No pneumoperitoneum. Abdomen: Moderate fecal debris noted throughout the colon and rectum without evidence of bowel obstruction. Bones: Degenerative changes noted lumbar spine. No osseous lesion. IMPRESSION: No evidence of bowel obstruction. No acute cardiopulmonary findings Moderate fecal debris present throughout the colon Degenerative lumbar spine Dictated by: Volodymyr Hough M.D. on 01/23/2021 at 16:00 Approved by: Volodymyr Hough M.D. on 01/23/2021 at 16:05 CT scan - abdomen/pelvis: Radiologist's Impression: Tunde Hale 70 M [address] [id number] Scan ReportSigned Patient: Tunde Hale EMR#: [id number]: 3Acct:[id number]/Sex: 70 / MDate of Service: 01/23/21Loc: EDAccession Number: [id number] Procedure: CT abdomen pelvis w con Ordering Provider: Pamela Sparrow D.O. PROCEDURE: CT ABDOMEN PELVIS W CON INDICATIONS: constipation v bowel obstruction. TECHNIQUE: After the administration of intravenous contrast, 5 mm thick sections acquired from the diaphragm to the symphysis. 5 mm coronal and sagittal reformats were acquired. For radiation dose reduction, the following was used: automated exposure control, adjustment of mA and/or kV according to patient size. COMPARISON: None. FINDINGS: ABDOMEN: Lung bases: Scattered subsegmental atelectasis and/or scarring. No focal consolidation. Hepatic steatosis. Scattered hepatic cysts are present although some of which are too small to characterize accurately. Gallbladder: Gallbladder is distended and there is cholelithiasis however no definite gallbladder wall thickening or pericholecystic inflammatory changes.. Bile ducts: Normal Pancreas: Normal. Spleen: Normal. Adrenal glands: Normal Kidneys: No hydronephrosis. Subcentimeter renal foci, statistically cysts, although technically too small to characterize accurately and therefore nonspecific. Stomach: Normal Bowel: Large amount of stool is present although no specific transition point. There is large amount of stool within the rectal vault. Other: No free fluid or air. Normal appendix. Abdominal nodes: Normal Aorta and IVC: Normal in size. Scattered vascular calcifications incidentally noted in the aorta. Ventral wall: Small periumbilical fat containing hernia. PELVIS: Bladder: Marked distention of the bladder otherwise unremarkable Inguinal: Small fat containing bilateral inguinal hernias. Pelvic nodes: Normal Bones: Spondylytic changes and facet arthropathy. No vertebral body compression fracture. IMPRESSION: Large amount of stool seen diffusely throughout the colon suggestive of constipation/fecal retention. No specific transition point to suggest bowel obstruction. If there is persistent clinical diagnostic uncertainty, continued surveillance with short interval radiographic followup after treatment is recommended. Hepatic steatosis Incidentally noted cholelithiasis. Distended appearance of the gallbladder although recommend clinical correlation given the absence of additional pericholecystic inflammatory changes. Normal appendix Dictated by: Tunde Nguyen M.D. on 01/23/2021 at 17:50 Approved by: Tunde Nguyen M.D. on 01/23/2021 at 17:55 MDM Narrative Medical decision making narrative: This is 70 year old male with complaint of constipation for 10 days. Patient has been afebrile. He did have emesis yesterday but not today. He has been slightly more distended but denies any abdominal pain. He is in passing gas but has not had a bowel movement. Patient tried Colace and MiraLax yesterday immediately after she tried the MiraLax he vomited. Used any additional vomiting afterwards. Patient's labs do not show any major abnormalities. His x-ray does not show any major changes. He does not have any sensation of stool at the rectum so CT imaging was obtained which shows a large fecal load but no clear bowel obstruction. Patient and I discussed and planned to try bowel regimen to help him have a bowel movement, make sure he has thoroughly hydrated and may add a magnesium citrate. We discussed return precautions which patient states he understands and they both him and his feel comfortable with. We did discuss that he has recently had an adjustment to his Parkinson's medications and Parkinson's in of itself can sometimes cause slowed transit of the bowel. We also discussed if he feels stable to ambulate this may also help him with his constipation. Patient did have a fall he has some bruising on his left chest but no significant tenderness. Discharge Plan Departure Patient Disposition: Home Clinical Impression: Constipation Instructions: Constipation Activity Restrictions/Additional Instructions: Follow up in the next 2-3 days if you have not had a bowel movement. Your lithium level is 1.2 today. Make sure you are staying hydrated, any to drink plenty of fluids at minimum 64 oz daily (8oz glasses of water x 8) Take colace twice daily Take miralax twice daily. Drink 1/2 bottle of magnesium citrate and wait 4-5 hours, if you have not had any bowel movement, drink the 2nd half bottle of magnesium citrate. Please return for fevers, new or worsening abdominal pain, persistent vomiting, black or bloody stools, if you are not passing any gas or other new or concerning symptoms. Prescriptions: No Action lamotrigine 200 mg tablet 200 mg PO BID RF: 0 lithium carbonate 150 mg capsule 150 mg PO 5XD RF: 0 carbamazepine 200 mg tablet 200 mg PO BID RF: 0 quetiapine 50 mg tablet 100 mg PO BID RF: 0 levothyroxine 50 mcg capsule 50 mcg PO DAILY RF: 0 desonide 0.05 % Cream 1 applic TOPICAL DAILY RF: 0 aspirin 325 mg Tablet 325 mg PO DAILY RF: 0 propranolol 10 mg Tablet 10 mg PO QID RF: 0 loratadine [Allerclear] 10 mg Tablet 10 mg PO DAILY RF: 0 Referrals: Og Larios MD [Primary Care Provider] -
[2021-01-23 16:31] LABS: Add Manual Diff / Slide Review NO; Basophils Absolute Auto 0 /uL (0-100); Basophils Percent Auto 0.4 % (0-2); Eosinophils Absolute Auto 200 /uL (0-450); Eosinophils Percent Auto 2.6 % (2-4); Hematocrit 42.5 % (41-53); Hemoglobin 14.1 g/dL (13.5-17.5); Lymphocytes Absolute Auto 1700 /uL (1100-4500); Lymphocytes Percent Auto 24.6 % (25-40); Mean Corpuscular HGB Conc 33.1 % (30-36); Mean Corpuscular Hemoglobin 32.5 PG (26-34); Mean Corpuscular Volume 98.1 fL (80-100); Monocytes Absolute Auto 500 /uL (0-900); Monocytes Percent Auto 7.7 % (3-14); Neutrophils Absolute Auto 4500 /uL (1500-7000); Neutrophils Percent Auto 64.7 % (50-75); Platelet Count 206 X10^3/uL (150-400); Red Blood Cell Count 4.33 X10^6/uL (4.5-5.9); Red Cell Distribution Width 12.6 % (11.6-14.8); White Blood Cell Count 6.9 X10^3/uL (4.5-11.0)
--- NOTE | 2021-01-23 16:52 | DI.CT.S_ITS ---
PROCEDURE: CT ABDOMEN PELVIS W CON INDICATIONS: constipation v bowel obstruction. TECHNIQUE: After the administration of intravenous contrast, 5 mm thick sections acquired from the diaphragm to the symphysis. 5 mm coronal and sagittal reformats were acquired. For radiation dose reduction, the following was used: automated exposure control, adjustment of mA and/or kV according to patient size. COMPARISON: None. FINDINGS: ABDOMEN: Lung bases: Scattered subsegmental atelectasis and/or scarring. No focal consolidation. Hepatic steatosis. Scattered hepatic cysts are present although some of which are too small to characterize accurately. Gallbladder: Gallbladder is distended and there is cholelithiasis however no definite gallbladder wall thickening or pericholecystic inflammatory changes.. Bile ducts: Normal Pancreas: Normal. Spleen: Normal. Adrenal glands: Normal Kidneys: No hydronephrosis. Subcentimeter renal foci, statistically cysts, although technically too small to characterize accurately and therefore nonspecific. Stomach: Normal Bowel: Large amount of stool is present although no specific transition point. There is large amount of stool within the rectal vault. Other: No free fluid or air. Normal appendix. Abdominal nodes: Normal Aorta and IVC: Normal in size. Scattered vascular calcifications incidentally noted in the aorta. Ventral wall: Small periumbilical fat containing hernia. PELVIS: Bladder: Marked distention of the bladder otherwise unremarkable Inguinal: Small fat containing bilateral inguinal hernias. Pelvic nodes: Normal Bones: Spondylytic changes and facet arthropathy. No vertebral body compression fracture. IMPRESSION: Large amount of stool seen diffusely throughout the colon suggestive of constipation/fecal retention. No specific transition point to suggest bowel obstruction. If there is persistent clinical diagnostic uncertainty, continued surveillance with short interval radiographic followup after treatment is recommended. Hepatic steatosis Incidentally noted cholelithiasis. Distended appearance of the gallbladder although recommend clinical correlation given the absence of additional pericholecystic inflammatory changes. Normal appendix Dictated by: Tunde Nguyen M.D. on 01/23/2021 at 17:50 Approved by: Tunde Nguyen M.D. on 01/23/2021 at 17:55
[2021-01-23] MEDS: SODIUM CHLORIDE 0.9% 1,000 ML 1000 ML IV (17:03)
[2021-01-23 17:04] LABS: Lithium 1.2 mmol/L (0.6-1.2)
[2021-01-23 17:40] VITALS: PULSE 47; O2SAT 100
[2021-01-23 18:00] VITALS: BP 140/78; PULSE 49; O2SAT 100
[2021-01-23 18:30] VITALS: BP 143/81; PULSE 50; O2SAT 99
[2021-01-23] MEDS: MAGNESIUM CITRATE 300 ML SOLUTION PO (18:48)
== END 2021-01-23 19:09 | disposition home or self-care (01) ==
PROVIDERS: Emergency Provider Emergency Medicine; PCP Internal Medicine
DX: K59.00 Constipation, unspecified (principal); R11.2 Nausea with vomiting, unspecified; R10.9 Unspecified abdominal pain
CPT/HCPCS: 36415; 74022; 74177; 80053; 80178; 83690; 85025; 85610; 85730; 96360; 96361; 99284

== ENCOUNTER 2021-06-04 14:15 | Outpatient (RCR) | payer MEDICARE, OTHER, SELFPAY ==
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
--- NOTE | 2021-05-06 17:51 | PT.OTN ---
Current Diagnoses Parkinson's disease (05/06/21) Physical Therapy Treatment Note PT-OP-A Visit Information Start: 04/28/21 10:19 Freq: Status: Active Protocol: Document 05/06/21 15:15 AW (Rec: 05/06/21 17:50 AW [id number]) Out-Patient Physical Therapy Visit Information Visit Information Visit Type Treatment Note Visit Note Medicare Regence (11/21 before KX modifier). Pt is on waiting list for LOUD Visit Start Time 14:15 Visit Stop Time 15:15 Total Visit Minutes 60 Visit Number 2 Evaluation Information Evaluation Date 04/28/21 Precautions Precautions Fall risk PT-OP-B Current Condition Start: 04/28/21 10:19 Freq: Status: Active Protocol: Document 04/28/21 13:45 MB (Rec: 04/28/21 14:05 MB [id number]) Current Condition History of Current Condition Onset Date Two years ago Current Complaints Hand tremors, forgetfulness, imbalance, shuffling feet History of Current Condition Pt lives with , Esmer. They have a cat who is on her last legs. They live in a one story house with no stairs to enter. He has a cane and rollator. He has been using the rollator for 4 months d/t falls. HHPT told him to do this. Symptoms of PD have been hand tremors, shuffling feet, forgetfulness. He hopes to have LOUD therapy as well and is on a wait list . Pt reports that he does get light-headedness mid-mornings. He reports dehydration. He takes a ton of medicine for his colon to get it running d/ t constipation. He drinks a lot of water for [place]. Pt has moderate kidney disease. Pt reports a tendency to bump into things. He does not have any pain now. Treatment Goals Patient/Caregiver Goals Learn how to walk safely, not shuffle, better balance PT-OP-C Subjective Start: 04/28/21 10:19 Freq: Status: Active Protocol: Document 05/06/21 15:15 AW (Rec: 05/06/21 17:51 AW [id number]) OP-PT Subjective Patient Comments Patient Comments Pt is ready to excited to start therapy. PT-OP-D Balance Start: 04/28/21 10:19 Freq: Status: Active Protocol: Document 04/28/21 13:45 MB (Rec: 04/28/21 15:24 MB [id number]) Balance Tests Other Other Balance Tests Performed Pt with LOB to the right with 6MWT and hits his right knuckles several times onto wall and once on hand locator specialist PT-OP-G Mobility & Gait Start: 04/28/21 10:19 Freq: Status: Active Protocol: Document 04/28/21 13:45 MB (Rec: 04/28/21 15:24 MB [id number]) OP Gait Assessment Comments Gait Comments 6MWT today without AD and pt has occ scuffing of right foot and frequent scuffing of left foot. He has trouble controlling balance around curves to right or left and tends to hit right knuckles against the wall and hand locator specialist (abount 5 times with gait today), decreased arm swing with gait Gait with rollator into clinic and out of clinic: slower and pt less confident than when walking with PT beside him with gait belt and no AD for 6MWT PT-OP-H Neuro Start: 04/28/21 10:19 Freq: Status: Active Protocol: Document 04/28/21 13:45 MB (Rec: 04/28/21 15:24 MB [id number]) Coordination Evaluation Comments Coordination Comments Dysdiadochokinesia with B rapid supination and pronation and tapping one foot's toes over the other foot and back Vital Signs Comments Vital Signs Comments Orthostatic assessment with BP and HR in LUE: supine 130/88, 52; standing 133/94, 57; standing 1' 129/89, 56; standing 2' 130/94, 57. PT-OP-K Range of Motion Start: 04/28/21 10:19 Freq: Status: Active Protocol: Document 04/28/21 13:45 MB (Rec: 04/28/21 15:24 MB [id number]) Shoulder Goniometric Range of Motion Shoulder ROM Limitations Comments End-range shoulder flexion limited B PT-OP-M Strength Start: 04/28/21 10:19 Freq: Status: Active Protocol: Document 04/28/21 13:45 MB (Rec: 04/28/21 15:24 MB [id number]) Shoulder Strength Shoulder Manual Muscle Testing Bilateral Flexion 5 Normal Abduction (C5) 5 Normal Hip Strength Hip Manual Muscle Testing Bilateral Flexion (L2) 5 Normal Knee Strength Knee Manual Muscle Testing Bilateral Flexion (S2) 5 Normal Ankle/Foot Strength Ankle and Foot Manual Muscle Testing Bilateral Dorsiflexion (L4) 5 Normal Toe Strength Toe Manual Muscle Testing Left Great Toe Extension 4 Good Right Great Toe Extension 4 Good PT-OP-Q Treatments Start: 04/28/21 10:19 Freq: Status: Active Protocol: Document 05/06/21 15:15 AW (Rec: 05/06/21 17:50 AW [id number]) Therapeutic Exercises Sitting Exercises side to side Sitting Exercise Name side to side Side bilateral Reps/Minutes x5 each direction Comments demo and shaping cues for trunk extension, forearm pronation floor to ceiling Sitting Exercise Name floor to ceiling Reps/Minutes x5 Comments pt familiar with this exercise ; cued trunk control to reduce posterior lean Sit to stands without UE support Sitting Exercise Name BIG sit to stand Equipment Used large black tx mat Reps/Minutes 5 x 2 Comments demo and cues for increased forward lean Standing Exercises sideways rock and reach Standing Exercise Name sideways rock and reach - ADAPTED Side bilateral Equipment Used rail on wall (behind) Reps/Minutes x6 each side Comments best performance with good uncued rotation, foot pivot fwd rock and reach Standing Exercise Name fwd rock and reach - ADAPTED Side bilateral Equipment Used rail on wall Reps/Minutes x 8 each side Comments demo and shaping cues for weight shift and BIG arm swing backward step Standing Exercise Name backward step - ADAPTED Side bilateral Equipment Used rail on wall Reps/Minutes x 8 each side Comments began w/ chair - not sturdy enough; transitioned to rail; improved amplitud sideways step Standing Exercise Name sideways step - ADAPTED Side bilateral Equipment Used chair for support - would be better with rail or sturdier chair Reps/Minutes x5 each side Comments cues for bigger rotation forward step Standing Exercise Name forward step - ADAPTED Side bilateral Equipment Used chair for support Reps/Minutes x5 each side Comments demo and cues for BIG foot clearance vs long step Self-Care/Home Management Treatment Education Other Education Education with pt and about primary impairments in PD and aim of amplitude-based treatment to recalibrate pt's sense of drive and effort to produce safer movement. PT-OP-T Assessment and Plan Start: 04/28/21 10:19 Freq: Status: Active Protocol: Document 05/06/21 15:15 AW (Rec: 05/06/21 17:50 AW [id number]) Physical Therapy Assessment Other Concerns Fall Risk Yes Goals 5 Pack Mule Worker Goal (LTG) Pt will perform WNLs on a standardized balance test to decrease fall risk by 06/03/21. LTG Duration 4 weeks 4 Senior Care Goal (LTG) Pt will perform BIG and functional exercises with I to improve amplitude of movement and balance by 06/03/21. LTG Duration 4 weeks 3 Senior Care Goal (LTG) Pt will perform 16 reps sit to stand without UE support in 30 sec to improve functional transfers by 06/03/21. LTG Duration 4 weeks 2 Pack Mule Worker Goal (LTG) Pt will gait train at least 1600 feet in 6 minutes without AD or running into objects with knuckles to decrease injury risk by 06/03/21. LTG Duration 4 weeks 1 Pack Mule Worker Goal (LTG) Pt will deny falls at home for a month to decrease injury risk by 06/03/21. LTG Duration 4 weeks Assessment Summary Assessment Pt has strong posterior lean in sitting and standing. Focused treatment today on teaching daily maximal exercises and emphasized to pt that he was responsible for doing exercise again at home today. Pt's attended and tended to speak over pt who improved his performance when moved to wall/rail and was able to focus more on his movement with less interference. Pt needs close SBA even with adapted exercises. Advised pt and his to use sturdy furniture at home to practice. Educated them to work more on effort and BIG movement in a safe manner instead of being too concerned with perfect performance. Physical Therapy Plan Frequency and Duration Frequency of Treatment 16 txs after eval Duration of Treatment 16 treatments after eval Plan of Care Start Date 04/28/21 Plan of Care End Date 06/03/21 Therapeutic Interventions Therapeutic Interventions Balance Training,Canalithic Repositioning,Gait Training, Home Exercise Program, Neuromuscular Re-education, Patient/Caregiver Education, Self-Care/Home Management, Sensory Integration, Therapeutic Activities, Therapeutic Exercises Modalities Cold Pack/Ice Massage,Hot Packs Next Visit Focus/Plan Next Note Type Treatment Note Next Visit Plan Start BIG exercises Functional activities - see pt list to be scanned to EMR
--- NOTE | 2021-05-07 15:31 | PT.OTN ---
Current Diagnoses Parkinson's disease (05/07/21) Physical Therapy Treatment Note PT-OP-A Visit Information Start: 04/28/21 10:19 Freq: Status: Active Protocol: Document 05/07/21 14:15 MB (Rec: 05/07/21 15:31 MB [id number]) Out-Patient Physical Therapy Visit Information Visit Information Visit Type Treatment Note Visit Note Medicare Regence 32/19 before KX modifier). Pt is on waiting list for LOUD Visit Start Time 14:15 Visit Stop Time 15:15 Total Visit Minutes 60 Visit Number 3 Precautions Precautions Fall risk, impulsivity, cognitive challenges PT-OP-B Current Condition Start: 04/28/21 10:19 Freq: Status: Active Protocol: Document 04/28/21 13:45 MB (Rec: 04/28/21 14:05 MB [id number]) Current Condition History of Current Condition Onset Date Two years ago Current Complaints Hand tremors, forgetfulness, imbalance, shuffling feet History of Current Condition Pt lives with , Esmer. They have a cat who is on her last legs. They live in a one story house with no stairs to enter. He has a cane and rollator. He has been using the rollator for 4 months d/t falls. HHPT told him to do this. Symptoms of PD have been hand tremors, shuffling feet, forgetfulness. He hopes to have LOUD therapy as well and is on a wait list . Pt reports that he does get light-headedness mid-mornings. He reports dehydration. He takes a ton of medicine for his colon to get it running d/ t constipation. He drinks a lot of water for [place]. Pt has moderate kidney disease. Pt reports a tendency to bump into things. He does not have any pain now. Treatment Goals Patient/Caregiver Goals Learn how to walk safely, not shuffle, better balance PT-OP-C Subjective Start: 04/28/21 10:19 Freq: Status: Active Protocol: Document 05/07/21 14:15 MB (Rec: 05/07/21 15:31 MB [id number]) OP-PT Subjective Patient Comments Patient Comments I got really confused doing the exercises without mirroring the therapist. PT-OP-D Balance Start: 04/28/21 10:19 Freq: Status: Active Protocol: Document 04/28/21 13:45 MB (Rec: 04/28/21 15:24 MB [id number]) Balance Tests Other Other Balance Tests Performed Pt with LOB to the right with 6MWT and hits his right knuckles several times onto wall and once on hand right of way manager PT-OP-G Mobility & Gait Start: 04/28/21 10:19 Freq: Status: Active Protocol: Document 04/28/21 13:45 MB (Rec: 04/28/21 15:24 MB [id number]) OP Gait Assessment Comments Gait Comments 6MWT today without AD and pt has occ scuffing of right foot and frequent scuffing of left foot. He has trouble controlling balance around curves to right or left and tends to hit right knuckles against the wall and hand right of way manager (abount 5 times with gait today), decreased arm swing with gait Gait with rollator into clinic and out of clinic: slower and pt less confident than when walking with PT beside him with gait belt and no AD for 6MWT PT-OP-H Neuro Start: 04/28/21 10:19 Freq: Status: Active Protocol: Document 04/28/21 13:45 MB (Rec: 04/28/21 15:24 MB [id number]) Coordination Evaluation Comments Coordination Comments Dysdiadochokinesia with B rapid supination and pronation and tapping one foot's toes over the other foot and back Vital Signs Comments Vital Signs Comments Orthostatic assessment with BP and HR in LUE: supine 130/88, 52; standing 133/94, 57; standing 1' 129/89, 56; standing 2' 130/94, 57. PT-OP-K Range of Motion Start: 04/28/21 10:19 Freq: Status: Active Protocol: Document 04/28/21 13:45 MB (Rec: 04/28/21 15:24 MB [id number]) Shoulder Goniometric Range of Motion Shoulder ROM Limitations Comments End-range shoulder flexion limited B PT-OP-M Strength Start: 04/28/21 10:19 Freq: Status: Active Protocol: Document 04/28/21 13:45 MB (Rec: 04/28/21 15:24 MB [id number]) Shoulder Strength Shoulder Manual Muscle Testing Bilateral Flexion 5 Normal Abduction (C5) 5 Normal Hip Strength Hip Manual Muscle Testing Bilateral Flexion (L2) 5 Normal Knee Strength Knee Manual Muscle Testing Bilateral Flexion (S2) 5 Normal Ankle/Foot Strength Ankle and Foot Manual Muscle Testing Bilateral Dorsiflexion (L4) 5 Normal Toe Strength Toe Manual Muscle Testing Left Great Toe Extension 4 Good Right Great Toe Extension 4 Good PT-OP-Q Treatments Start: 04/28/21 10:19 Freq: Status: Active Protocol: Document 05/07/21 14:15 MB (Rec: 05/07/21 15:31 MB [id number]) Therapeutic Exercises Sitting Exercises side to side Side bilateral Equipment Used Mesh chair Reps/Minutes 5 reps each direction Comments cues, demo and modeling as needed floor to ceiling Equipment Used Mesh chair Reps/Minutes 5 reps Comments cues and demo Sit to stands without UE support Sitting Exercise Name BIG sit to stand Reps/Minutes 20 reps Comments Cues and demo to reach foward and flex at hips to stand-- shift weight toes Standing Exercises sideways rock and reach Side bilateral Reps/Minutes 2 each side Comments Ran out of time, multiple trials separate feet and arms fwd rock and reach Side bilateral Reps/Minutes x30 each side Comments Cues and demo to keep knees loose, spread apart feet backward step Side bilateral Reps/Minutes 20 reps each foot Comments Divided up feet and arms, cues to WB and bend back leg, toe up front foot sideways step Side bilateral Reps/Minutes 10 reps each side x2 Comments Cues to look where he is going , verbal and tactile cues for hands, BIG feet forward step Side bilateral Equipment Used Mirror, better without chair Reps/Minutes 10 reps x3 each side Comments Cues for BIG feet, slowing down, foot placement and weight shift PT-OP-T Assessment and Plan Start: 04/28/21 10:19 Freq: Status: Active Protocol: Document 05/07/21 14:15 MB (Rec: 05/07/21 15:31 MB [id number]) Physical Therapy Assessment Rehab Potential Rehabilitation Potential Good Evaluation Complexity Number of Personal Factors/Comorbidities 1-2 Number of Body Systems Impaired 3 Clinical Presentation at Evaluation Evolving Impairments Impairments Balance,Coordination, Functional Activities, Functional Mobility,Gait, Posture,ROM Other Impairments Personal factors include tends to speak for patient, cognitive and psychosocial co- morbidities. Body systems involved include cognitive, psychosocial and neurological. His clinical presentation is progressing in setting of medical co-morbidities. Other Concerns Fall Risk Yes Goals 5 Liner Machine Operator Helper Goal (LTG) Pt will perform WNLs on a standardized balance test to decrease fall risk by 06/03/21. LTG Duration 4 weeks 4 Liner Machine Operator Helper Goal (LTG) Pt will perform BIG and functional exercises with I to improve amplitude of movement and balance by 06/03/21. LTG Duration 4 weeks 3 [facility] Goal (LTG) Pt will perform 16 reps sit to stand without UE support in 30 sec to improve functional transfers by 06/03/21. LTG Duration 4 weeks 2 Liner Machine Operator Helper Goal (LTG) Pt will gait train at least 1600 feet in 6 minutes without AD or running into objects with knuckles to decrease injury risk by 06/03/21. LTG Duration 4 weeks 1 Liner Machine Operator Helper Goal (LTG) Pt will deny falls at home for a month to decrease injury risk by 06/03/21. LTG Duration 4 weeks Assessment Summary Assessment Overall, pt has very poor body awareness and presents with increased impulsivity, poor weight shifting and tends to mirza through exercises. He tends to step far and fast rather than with BIG and controlled amplitude. Attempts to add chair in for adapted exercises today only confuse pt further and cause him to fully weight shift less with stepping. Progress BIG gait and functional activities next treatment date. Gave pt a copy of standard exercise handouts today and PT's adapted video as standard DVD is not available. Physical Therapy Plan Frequency and Duration Frequency of Treatment 16 txs after eval Duration of Treatment 16 treatments after eval Plan of Care Start Date 04/28/21 Plan of Care End Date 06/03/21 Therapeutic Interventions Therapeutic Interventions Balance Training,Canalithic Repositioning,Gait Training, Home Exercise Program, Neuromuscular Re-education, Patient/Caregiver Education, Self-Care/Home Management, Sensory Integration, Therapeutic Activities, Therapeutic Exercises Modalities Cold Pack/Ice Massage,Hot Packs Next Visit Focus/Plan Next Note Type Treatment Note Next Visit Plan Start BIG walking, buttoning, car transfers
--- NOTE | 2021-05-11 15:42 | PT.OTN ---
Current Diagnoses Parkinson's disease (05/11/21) Physical Therapy Treatment Note PT-OP-A Visit Information Start: 04/28/21 10:19 Freq: Status: Active Protocol: Document 05/11/21 14:17 MB (Rec: 05/11/21 15:42 MB [id number]) Out-Patient Physical Therapy Visit Information Visit Information Visit Type Treatment Note Visit Note Medicare Regence (01/19 before KX modifier). Pt is on waiting list for LOUD Visit Start Time 14:17 Visit Stop Time 15:15 Total Visit Minutes 58 Visit Number 4 Precautions Precautions Fall risk, impulsivity, cognitive challenges PT-OP-B Current Condition Start: 04/28/21 10:19 Freq: Status: Active Protocol: Document 04/28/21 13:45 MB (Rec: 04/28/21 14:05 MB [id number]) Current Condition History of Current Condition Onset Date Two years ago Current Complaints Hand tremors, forgetfulness, imbalance, shuffling feet History of Current Condition Pt lives with , Esmer. They have a cat who is on her last legs. They live in a one story house with no stairs to enter. He has a cane and rollator. He has been using the rollator for 4 months d/t falls. HHPT told him to do this. Symptoms of PD have been hand tremors, shuffling feet, forgetfulness. He hopes to have LOUD therapy as well and is on a wait list . Pt reports that he does get light-headedness mid-mornings. He reports dehydration. He takes a ton of medicine for his colon to get it running d/ t constipation. He drinks a lot of water for [place]. Pt has moderate kidney disease. Pt reports a tendency to bump into things. He does not have any pain now. Treatment Goals Patient/Caregiver Goals Learn how to walk safely, not shuffle, better balance PT-OP-C Subjective Start: 04/28/21 10:19 Freq: Status: Active Protocol: Document 05/11/21 14:17 MB (Rec: 05/11/21 15:42 MB [id number]) OP-PT Subjective Patient Comments Patient Comments Pt states that he worked on the exercises. He watched the video (he has adapted DVD currently) PT-OP-D Balance Start: 04/28/21 10:19 Freq: Status: Active Protocol: Document 04/28/21 13:45 MB (Rec: 04/28/21 15:24 MB [id number]) Balance Tests Other Other Balance Tests Performed Pt with LOB to the right with 6MWT and hits his right knuckles several times onto wall and once on hand submarine diver PT-OP-G Mobility & Gait Start: 04/28/21 10:19 Freq: Status: Active Protocol: Document 04/28/21 13:45 MB (Rec: 04/28/21 15:24 MB [id number]) OP Gait Assessment Comments Gait Comments 6MWT today without AD and pt has occ scuffing of right foot and frequent scuffing of left foot. He has trouble controlling balance around curves to right or left and tends to hit right knuckles against the wall and hand submarine diver (abount 5 times with gait today), decreased arm swing with gait Gait with rollator into clinic and out of clinic: slower and pt less confident than when walking with PT beside him with gait belt and no AD for 6MWT PT-OP-H Neuro Start: 04/28/21 10:19 Freq: Status: Active Protocol: Document 04/28/21 13:45 MB (Rec: 04/28/21 15:24 MB [id number]) Coordination Evaluation Comments Coordination Comments Dysdiadochokinesia with B rapid supination and pronation and tapping one foot's toes over the other foot and back Vital Signs Comments Vital Signs Comments Orthostatic assessment with BP and HR in LUE: supine 130/88, 52; standing 133/94, 57; standing 1' 129/89, 56; standing 2' 130/94, 57. PT-OP-K Range of Motion Start: 04/28/21 10:19 Freq: Status: Active Protocol: Document 04/28/21 13:45 MB (Rec: 04/28/21 15:24 MB [id number]) Shoulder Goniometric Range of Motion Shoulder ROM Limitations Comments End-range shoulder flexion limited B PT-OP-M Strength Start: 04/28/21 10:19 Freq: Status: Active Protocol: Document 04/28/21 13:45 MB (Rec: 04/28/21 15:24 MB [id number]) Shoulder Strength Shoulder Manual Muscle Testing Bilateral Flexion 5 Normal Abduction (C5) 5 Normal Hip Strength Hip Manual Muscle Testing Bilateral Flexion (L2) 5 Normal Knee Strength Knee Manual Muscle Testing Bilateral Flexion (S2) 5 Normal Ankle/Foot Strength Ankle and Foot Manual Muscle Testing Bilateral Dorsiflexion (L4) 5 Normal Toe Strength Toe Manual Muscle Testing Left Great Toe Extension 4 Good Right Great Toe Extension 4 Good PT-OP-Q Treatments Start: 04/28/21 10:19 Freq: Status: Active Protocol: Document 05/11/21 14:17 MB (Rec: 05/11/21 15:42 MB [id number]) Therapeutic Exercises Standing Exercises sideways rock and reach Side bilateral Reps/Minutes 7 reps each side Comments Improvements in this today, ongoing cues for pivot on foot , hand placement fwd rock and reach Side bilateral Reps/Minutes 10 reps x2 each side Comments Pt performs pretty well with left foot front, harder with right foot fro backward step Standing Exercise Name Tried with chair and without, trouble with both Side bilateral Reps/Minutes 5 reps each leg Comments Pt has trouble coordinating all--especially BIG right toe forward step Side bilateral Equipment Used Mirrored PT Reps/Minutes 10 reps each side Comments Cues for BIG stance, not stepping to far Therapeutic Activity Therapeutic Activity Mocking getting in an out of car Reps/Minutes 5' Comments Tim cynlinical bolster on the ground and pt sitting down on the corner of black mat, lifting left leg and then right leg over the bolster and corner to mock getting in the passenger seat and then reverse to get out: cues for BIG leg, to clear the bolster and to move his hips with his leg to turn to face outwards. Cues to back up to the seat and have legs touching before sitting. Then, cues to move legs inside the car after sitting Buttoning Reps/Minutes 3' Comments Pt dons and doffs short sleeved button up shirt over his donned button up shirt and he is able to perform pretty well without a lot of fine motor impairment. He is slower Gait Training Gait Activity BIG walking Level of Assistance Superv, cues, demo Surface Inside clinic, outside on sidewalk, parking lot and grass Distance/Duration 28' Treatment Focus Focus on not scuffing left foot or hands on hill in clinic (BIG feet) Comments With walking counter clockwise , scuffs left hand against hallway wall x2, pt with scuffing of feet inside and outside, much greater on the left. Pt is able to keep up rimma when cued over grass, sidewalk and pavement. PT-OP-T Assessment and Plan Start: 04/28/21 10:19 Freq: Status: Active Protocol: Document 05/11/21 14:17 MB (Rec: 05/11/21 15:42 MB [id number]) Physical Therapy Assessment Rehab Potential Rehabilitation Potential Good Evaluation Complexity Number of Personal Factors/Comorbidities 1-2 Number of Body Systems Impaired 3 Clinical Presentation at Evaluation Evolving Impairments Impairments Balance,Coordination, Functional Activities, Functional Mobility,Gait, Posture,ROM Other Impairments Personal factors include tends to speak for patient, cognitive and psychosocial co- morbidities. Body systems involved include cognitive, psychosocial and neurological. His clinical presentation is progressing in setting of medical co-morbidities. Other Concerns Fall Risk Yes Goals 5 Half-Way Goal (LTG) Pt will perform WNLs on a standardized balance test to decrease fall risk by 06/03/21. LTG Duration 4 weeks 4 Half-Way Goal (LTG) Pt will perform BIG and functional exercises with I to improve amplitude of movement and balance by 06/03/21. LTG Duration 4 weeks 3 [employer]munition Components Inspector Goal (LTG) Pt will perform 16 reps sit to stand without UE support in 30 sec to improve functional transfers by 06/03/21. LTG Duration 4 weeks 2 Ammunition Components Inspector Goal (LTG) Pt will gait train at least 1600 feet in 6 minutes without AD or running into objects with knuckles to decrease injury risk by 06/03/21. LTG Duration 4 weeks 1 Ammunition Components Inspector Goal (LTG) Pt will deny falls at home for a month to decrease injury risk by 06/03/21. LTG Duration 4 weeks Assessment Summary Assessment Improvement in treatment today in that BIG walking and ther act performed first. Pt still has to have a lot of cues and help with exercises. Today, he has most trouble with exercises requiring BIG front toe (rock and reach and backward step) and feet forward (rock and reach). He tends to WB through fore feet and this causes him to lose balance forward with forward stepping. Sometimes, the chair is more problematic as he almost pulls it over onto himself with backwards step. Will try to come up with best way to do exercises next treatment date. Physical Therapy Plan Frequency and Duration Frequency of Treatment 16 txs after eval Duration of Treatment 16 treatments after eval Plan of Care Start Date 04/28/21 Plan of Care End Date 06/03/21 Therapeutic Interventions Therapeutic Interventions Balance Training,Canalithic Repositioning,Gait Training, Home Exercise Program, Neuromuscular Re-education, Patient/Caregiver Education, Self-Care/Home Management, Sensory Integration, Therapeutic Activities, Therapeutic Exercises Modalities Cold Pack/Ice Massage,Hot Packs Next Visit Focus/Plan Next Note Type Treatment Note Next Visit Plan Try to determine exercise set he should be doing at home-- likely some adapted and some standard
--- NOTE | 2021-05-12 15:32 | PT.OTN ---
Current Diagnoses Parkinson's disease (05/12/21) Physical Therapy Treatment Note PT-OP-A Visit Information Start: 04/28/21 10:19 Freq: Status: Active Protocol: Document 05/12/21 14:15 MB (Rec: 05/12/21 15:32 MB [id number]) Out-Patient Physical Therapy Visit Information Visit Information Visit Type Treatment Note Visit Note Medicare Regence (02/18 before KX modifier). Pt is on waiting list for LOUD Visit Start Time 14:15 Visit Stop Time 15:15 Total Visit Minutes 60 Visit Number 5 Precautions Precautions Fall risk, impulsivity, cognitive challenges PT-OP-B Current Condition Start: 04/28/21 10:19 Freq: Status: Active Protocol: Document 04/28/21 13:45 MB (Rec: 04/28/21 14:05 MB [id number]) Current Condition History of Current Condition Onset Date Two years ago Current Complaints Hand tremors, forgetfulness, imbalance, shuffling feet History of Current Condition Pt lives with , Esmer. They have a cat who is on her last legs. They live in a one story house with no stairs to enter. He has a cane and rollator. He has been using the rollator for 4 months d/t falls. HHPT told him to do this. Symptoms of PD have been hand tremors, shuffling feet, forgetfulness. He hopes to have LOUD therapy as well and is on a wait list . Pt reports that he does get light-headedness mid-mornings. He reports dehydration. He takes a ton of medicine for his colon to get it running d/ t constipation. He drinks a lot of water for [place]. Pt has moderate kidney disease. Pt reports a tendency to bump into things. He does not have any pain now. Treatment Goals Patient/Caregiver Goals Learn how to walk safely, not shuffle, better balance PT-OP-C Subjective Start: 04/28/21 10:19 Freq: Status: Active Protocol: Document 05/12/21 14:15 MB (Rec: 05/12/21 15:32 MB [id number]) OP-PT Subjective Patient Comments Patient Comments Pt does not have any updates. PT-OP-D Balance Start: 04/28/21 10:19 Freq: Status: Active Protocol: Document 04/28/21 13:45 MB (Rec: 04/28/21 15:24 MB [id number]) Balance Tests Other Other Balance Tests Performed Pt with LOB to the right with 6MWT and hits his right knuckles several times onto wall and once on hand betting clerk PT-OP-G Mobility & Gait Start: 04/28/21 10:19 Freq: Status: Active Protocol: Document 04/28/21 13:45 MB (Rec: 04/28/21 15:24 MB [id number]) OP Gait Assessment Comments Gait Comments 6MWT today without AD and pt has occ scuffing of right foot and frequent scuffing of left foot. He has trouble controlling balance around curves to right or left and tends to hit right knuckles against the wall and hand betting clerk (abount 5 times with gait today), decreased arm swing with gait Gait with rollator into clinic and out of clinic: slower and pt less confident than when walking with PT beside him with gait belt and no AD for 6MWT PT-OP-H Neuro Start: 04/28/21 10:19 Freq: Status: Active Protocol: Document 04/28/21 13:45 MB (Rec: 04/28/21 15:24 MB [id number]) Coordination Evaluation Comments Coordination Comments Dysdiadochokinesia with B rapid supination and pronation and tapping one foot's toes over the other foot and back Vital Signs Comments Vital Signs Comments Orthostatic assessment with BP and HR in LUE: supine 130/88, 52; standing 133/94, 57; standing 1' 129/89, 56; standing 2' 130/94, 57. PT-OP-K Range of Motion Start: 04/28/21 10:19 Freq: Status: Active Protocol: Document 04/28/21 13:45 MB (Rec: 04/28/21 15:24 MB [id number]) Shoulder Goniometric Range of Motion Shoulder ROM Limitations Comments End-range shoulder flexion limited B PT-OP-M Strength Start: 04/28/21 10:19 Freq: Status: Active Protocol: Document 04/28/21 13:45 MB (Rec: 04/28/21 15:24 MB [id number]) Shoulder Strength Shoulder Manual Muscle Testing Bilateral Flexion 5 Normal Abduction (C5) 5 Normal Hip Strength Hip Manual Muscle Testing Bilateral Flexion (L2) 5 Normal Knee Strength Knee Manual Muscle Testing Bilateral Flexion (S2) 5 Normal Ankle/Foot Strength Ankle and Foot Manual Muscle Testing Bilateral Dorsiflexion (L4) 5 Normal Toe Strength Toe Manual Muscle Testing Left Great Toe Extension 4 Good Right Great Toe Extension 4 Good PT-OP-Q Treatments Start: 04/28/21 10:19 Freq: Status: Active Protocol: Document 05/12/21 14:15 MB (Rec: 05/12/21 15:32 MB [id number]) Therapeutic Exercises Sitting Exercises side to side Side bilateral Equipment Used Black mat in gym Reps/Minutes 5 reps each direction Comments Cues to count and for form and minimal shaping floor to ceiling Equipment Used Black mat in gym Reps/Minutes 6 reps Comments Cues to count Sit to stands without UE support Sitting Exercise Name BIG sit to stand Equipment Used Black mat in gym Reps/Minutes 10 reps Comments Cues to reach forward and bend at hips to sit down Standing Exercises sideways rock and reach Side bilateral Reps/Minutes 10 reps Comments Cues for hand position and pivoting on back foot fwd rock and reach Side bilateral Equipment Used Mesh chair Reps/Minutes 10 reps x2 Comments Chair on the side and he performs better than without chair backward step Comments Pt has trouble with this and so took out of HEP packet sideways step Side bilateral Reps/Minutes 10 reps each side Comments Cues to look where he is going and to slow down forward step Side bilateral Reps/Minutes 10 reps each side Comments Cues for BIG feet and to slow down Therapeutic Activity Therapeutic Activity Mocking getting in an out of car Reps/Minutes 4' Comments Tim rosenlindrical bolster on the ground and pt sitting down on the corner of black mat, lifting left leg and then right leg over the bolster and corner to mock getting in the passenger seat and then reverse to get out. Some improvement today Gait Training Gait Activity BIG walking Level of Assistance Superv, cues, demo Surface Outside clinic, sidewalk, parking lot Distance/Duration 18' Treatment Focus BIG feet clearance Comments Pt tends to have LOB with stopping forward propulsion x2 . Cues for BIG left arm and left foot to promote clearing feet and he does have some improvement today PT-OP-T Assessment and Plan Start: 04/28/21 10:19 Freq: Status: Active Protocol: Document 05/12/21 14:15 MB (Rec: 05/12/21 15:32 MB [id number]) Physical Therapy Assessment Rehab Potential Rehabilitation Potential Good Evaluation Complexity Number of Personal Factors/Comorbidities 1-2 Number of Body Systems Impaired 3 Clinical Presentation at Evaluation Evolving Impairments Impairments Balance,Coordination, Functional Activities, Functional Mobility,Gait, Posture,ROM Other Impairments Personal factors include tends to speak for patient, cognitive and psychosocial co- morbidities. Body systems involved include cognitive, psychosocial and neurological. His clinical presentation is progressing in setting of medical co-morbidities. Other Concerns Fall Risk Yes Goals 5 Senior Master Scheduler Goal (LTG) Pt will perform WNLs on a standardized balance test to decrease fall risk by 06/03/21. LTG Duration 4 weeks 4 Senior Master Scheduler Goal (LTG) Pt will perform BIG and functional exercises with I to improve amplitude of movement and balance by 06/03/21. LTG Duration 4 weeks 3 Fpc Goal (LTG) Pt will perform 16 reps sit to stand without UE support in 30 sec to improve functional transfers by 06/03/21. LTG Duration 4 weeks 2 Fpc Goal (LTG) Pt will gait train at least 1600 feet in 6 minutes without AD or running into objects with knuckles to decrease injury risk by 06/03/21. LTG Duration 4 weeks 1 Fpc Goal (LTG) Pt will deny falls at home for a month to decrease injury risk by 06/03/21. LTG Duration 4 weeks Assessment Summary Assessment Developed current best BIG HEP --all standard exercises except chair beside for forward rock and reach and removed backward step from HEP d/t confusion and poor performance. Provided standard exercise DVD for home use. Overall, some improvements today. He con't with left foot scuffing with gait and slowing speed. Physical Therapy Plan Frequency and Duration Frequency of Treatment 16 txs after eval Duration of Treatment 16 treatments after eval Plan of Care Start Date 04/28/21 Plan of Care End Date 06/03/21 Therapeutic Interventions Therapeutic Interventions Balance Training,Canalithic Repositioning,Gait Training, Home Exercise Program, Neuromuscular Re-education, Patient/Caregiver Education, Self-Care/Home Management, Sensory Integration, Therapeutic Activities, Therapeutic Exercises Modalities Cold Pack/Ice Massage,Hot Packs Next Visit Focus/Plan Next Note Type Treatment Note Next Visit Plan Con't BIG exercise training, working on backward step in clinic, getting in and out of his car
--- NOTE | 2021-05-13 17:20 | PT.OTN ---
Current Diagnoses Parkinson's disease (05/13/21) Physical Therapy Treatment Note PT-OP-A Visit Information Start: 04/28/21 10:19 Freq: Status: Active Protocol: Document 05/13/21 15:18 AW (Rec: 05/13/21 15:19 AW [id number]) Out-Patient Physical Therapy Visit Information Visit Information Visit Type Treatment Note Visit Note Medicare Reg[place] (03/21 before KX modifier). Pt is on waiting list for LOUD Visit Start Time 14:25 Visit Stop Time 15:18 Total Visit Minutes 53 Visit Number 6 Precautions Precautions Fall risk, impulsivity, cognitive challenges PT-OP-B Current Condition Start: 04/28/21 10:19 Freq: Status: Active Protocol: Document 04/28/21 13:45 MB (Rec: 04/28/21 14:05 MB [id number]) Current Condition History of Current Condition Onset Date Two years ago Current Complaints Hand tremors, forgetfulness, imbalance, shuffling feet History of Current Condition Pt lives with , Esmer. They have a cat who is on her last legs. They live in a one story house with no stairs to enter. He has a cane and rollator. He has been using the rollator for 4 months d/t falls. HHPT told him to do this. Symptoms of PD have been hand tremors, shuffling feet, forgetfulness. He hopes to have LOUD therapy as well and is on a wait list . Pt reports that he does get light-headedness mid-mornings. He reports dehydration. He takes a ton of medicine for his colon to get it running d/ t constipation. He drinks a lot of water for [place]. Pt has moderate kidney disease. Pt reports a tendency to bump into things. He does not have any pain now. Treatment Goals Patient/Caregiver Goals Learn how to walk safely, not shuffle, better balance PT-OP-C Subjective Start: 04/28/21 10:19 Freq: Status: Active Protocol: Document 05/13/21 15:18 AW (Rec: 05/13/21 15:19 AW [id number]) OP-PT Subjective Patient Comments Patient Comments I think I twisted my ankle slightly while walking in therapy yesterday. That's why I'm using the rollator today. PT-OP-D Balance Start: 04/28/21 10:19 Freq: Status: Active Protocol: Document 04/28/21 13:45 MB (Rec: 04/28/21 15:24 MB [id number]) Balance Tests Other Other Balance Tests Performed Pt with LOB to the right with 6MWT and hits his right knuckles several times onto wall and once on hand music therapy teacher PT-OP-G Mobility & Gait Start: 04/28/21 10:19 Freq: Status: Active Protocol: Document 04/28/21 13:45 MB (Rec: 04/28/21 15:24 MB [id number]) OP Gait Assessment Comments Gait Comments 6MWT today without AD and pt has occ scuffing of right foot and frequent scuffing of left foot. He has trouble controlling balance around curves to right or left and tends to hit right knuckles against the wall and hand music therapy teacher (abount 5 times with gait today), decreased arm swing with gait Gait with rollator into clinic and out of clinic: slower and pt less confident than when walking with PT beside him with gait belt and no AD for 6MWT PT-OP-H Neuro Start: 04/28/21 10:19 Freq: Status: Active Protocol: Document 04/28/21 13:45 MB (Rec: 04/28/21 15:24 MB [id number]) Coordination Evaluation Comments Coordination Comments Dysdiadochokinesia with B rapid supination and pronation and tapping one foot's toes over the other foot and back Vital Signs Comments Vital Signs Comments Orthostatic assessment with BP and HR in LUE: supine 130/88, 52; standing 133/94, 57; standing 1' 129/89, 56; standing 2' 130/94, 57. PT-OP-K Range of Motion Start: 04/28/21 10:19 Freq: Status: Active Protocol: Document 04/28/21 13:45 MB (Rec: 04/28/21 15:24 MB [id number]) Shoulder Goniometric Range of Motion Shoulder ROM Limitations Comments End-range shoulder flexion limited B PT-OP-M Strength Start: 04/28/21 10:19 Freq: Status: Active Protocol: Document 04/28/21 13:45 MB (Rec: 04/28/21 15:24 MB [id number]) Shoulder Strength Shoulder Manual Muscle Testing Bilateral Flexion 5 Normal Abduction (C5) 5 Normal Hip Strength Hip Manual Muscle Testing Bilateral Flexion (L2) 5 Normal Knee Strength Knee Manual Muscle Testing Bilateral Flexion (S2) 5 Normal Ankle/Foot Strength Ankle and Foot Manual Muscle Testing Bilateral Dorsiflexion (L4) 5 Normal Toe Strength Toe Manual Muscle Testing Left Great Toe Extension 4 Good Right Great Toe Extension 4 Good PT-OP-Q Treatments Start: 04/28/21 10:19 Freq: Status: Active Protocol: Document 05/13/21 15:18 AW (Rec: 05/13/21 17:20 AW [id number]) Therapeutic Exercises Sitting Exercises side to side Side bilateral Equipment Used Black mat in gym Reps/Minutes 5 reps each direction Comments cued to lengthen line from fingertips to toes floor to ceiling Equipment Used Black mat in gym Reps/Minutes 6 reps Comments Cues to count Sit to stands without UE support Sitting Exercise Name BIG sit to stand Equipment Used mesh chair Reps/Minutes 6 reps x 3 Comments Cues to reach forward and bend at hips to sit down Standing Exercises sideways rock and reach Side bilateral Reps/Minutes 10 reps Comments good pivot back foot fwd rock and reach Side bilateral Equipment Used rail Reps/Minutes 10 reps x2 Comments cued arms as high as possible backward step Side bilateral Equipment Used rail for UE support Reps/Minutes 10 reps BLE Comments max demo and shaping cues to coordinate LE/UE movements sideways step Side bilateral Reps/Minutes 10 reps each side Comments en garde forward step Side bilateral Reps/Minutes 10 reps each side Comments cues for increased foot clearance Therapeutic Activity Therapeutic Activity Mocking getting in an out of car Reps/Minutes 4' Comments [place] cynlindrical bolster on the ground and pt sitting down on the corner of black mat, lifting left leg and then right leg over the bolster and corner to mock getting in the passenger seat and then reverse to get out. added sit <> stand to all reps Gait Training Gait Activity BIG walking Level of Assistance Superv, cues, demo Surface Outside clinic, sidewalk, parking lot Distance/Duration 11' Treatment Focus BIG feet clearance Comments Cued think BIG and pink panther walk. Pt able to increase amplitude up to ~60 feet and then arm swing begins to decrease PT-OP-T Assessment and Plan Start: 04/28/21 10:19 Freq: Status: Active Protocol: Document 05/13/21 15:18 AW (Rec: 05/13/21 17:20 AW [id number]) Physical Therapy Assessment Rehab Potential Rehabilitation Potential Good Evaluation Complexity Number of Personal Factors/Comorbidities 1-2 Number of Body Systems Impaired 3 Clinical Presentation at Evaluation Evolving Impairments Impairments Balance,Coordination, Functional Activities, Functional Mobility,Gait, Posture,ROM Other Impairments Personal factors include tends to speak for patient, cognitive and psychosocial co- morbidities. Body systems involved include cognitive, psychosocial and neurological. His clinical presentation is progressing in setting of medical co-morbidities. Other Concerns Fall Risk Yes Goals 5 Threshing Operator Goal (LTG) Pt will perform WNLs on a standardized balance test to decrease fall risk by 06/03/21. LTG Duration 4 weeks 4 Threshing Operator Goal (LTG) Pt will perform BIG and functional exercises with I to improve amplitude of movement and balance by 06/03/21. LTG Duration 4 weeks 3 Threshing Operator Goal (LTG) Pt will perform 16 reps sit to stand without UE support in 30 sec to improve functional transfers by 06/03/21. LTG Duration 4 weeks 2 Threshing Operator Goal (LTG) Pt will gait train at least 1600 feet in 6 minutes without AD or running into objects with knuckles to decrease injury risk by 06/03/21. LTG Duration 4 weeks 1 Threshing Operator Goal (LTG) Pt will deny falls at home for a month to decrease injury risk by 06/03/21. LTG Duration 4 weeks Assessment Summary Assessment Gait improved today with cues to think BIG and [place] walk. Encouraged exaggerated hip flexion and arm swing which pt was able to maintain ~60 feet before beginning to lose amplitude. Assigned BIG walking for homework. Physical Therapy Plan Frequency and Duration Frequency of Treatment 16 txs after eval Duration of Treatment 16 treatments after eval Plan of Care Start Date 04/28/21 Plan of Care End Date 06/03/21 Therapeutic Interventions Therapeutic Interventions Balance Training,Canalithic Repositioning,Gait Training, Home Exercise Program, Neuromuscular Re-education, Patient/Caregiver Education, Self-Care/Home Management, Sensory Integration, Therapeutic Activities, Therapeutic Exercises Modalities Cold Pack/Ice Massage,Hot Packs Next Visit Focus/Plan Next Note Type Treatment Note Next Visit Plan Con't BIG exercise training, working on backward step in clinic, getting in and out of his car
--- NOTE | 2021-05-14 14:36 | PT-OP ANOTE ---
Pt arrives to treatment. He states that he is not feeling well today. He fell off his chair doing the first BIG exercise this morning. His right ankle is bothering him since walking outside during treatment two days ago. His hands are shaky. PT and pt agree to cancel BIG appointment today. Negative orthostatics today with BP and HR in LUE: supine 123/76, 55; standing 134/86, 58; standing 1' 129/84, 57. Ed pt in safety first, increasing non-caffeinated fluid intake.
--- NOTE | 2021-05-18 15:33 | PT.OTN ---
Current Diagnoses Parkinson's disease (05/18/21) Physical Therapy Treatment Note PT-OP-A Visit Information Start: 04/28/21 10:19 Freq: Status: Active Protocol: Document 05/18/21 14:16 MB (Rec: 05/18/21 15:32 MB [id number]) Out-Patient Physical Therapy Visit Information Visit Information Visit Type Treatment Note Visit Note Medicare Regence (04/20 before KX modifier). Pt is on waiting list for LOUD Visit Start Time 14:17 Visit Stop Time 15:11 Total Visit Minutes 54 Visit Number 7 Precautions Precautions Fall risk, impulsivity, cognitive challenges PT-OP-B Current Condition Start: 04/28/21 10:19 Freq: Status: Active Protocol: Document 04/28/21 13:45 MB (Rec: 04/28/21 14:05 MB [id number]) Current Condition History of Current Condition Onset Date Two years ago Current Complaints Hand tremors, forgetfulness, imbalance, shuffling feet History of Current Condition Pt lives with , Esmer. They have a cat who is on her last legs. They live in a one story house with no stairs to enter. He has a cane and rollator. He has been using the rollator for 4 months d/t falls. HHPT told him to do this. Symptoms of PD have been hand tremors, shuffling feet, forgetfulness. He hopes to have LOUD therapy as well and is on a wait list . Pt reports that he does get light-headedness mid-mornings. He reports dehydration. He takes a ton of medicine for his colon to get it running d/ t constipation. He drinks a lot of water for [place]. Pt has moderate kidney disease. Pt reports a tendency to bump into things. He does not have any pain now. Treatment Goals Patient/Caregiver Goals Learn how to walk safely, not shuffle, better balance PT-OP-C Subjective Start: 04/28/21 10:19 Freq: Status: Active Protocol: Document 05/18/21 14:16 MB (Rec: 05/18/21 15:32 MB [id number]) OP-PT Subjective Patient Comments Patient Comments Pt states that he hasn't used the walker since last week. His ankle his better. He did some exercises over the weekend but they were away 2 days. PT-OP-D Balance Start: 04/28/21 10:19 Freq: Status: Active Protocol: Document 04/28/21 13:45 MB (Rec: 04/28/21 15:24 MB [id number]) Balance Tests Other Other Balance Tests Performed Pt with LOB to the right with 6MWT and hits his right knuckles several times onto wall and once on hand cream beater PT-OP-G Mobility & Gait Start: 04/28/21 10:19 Freq: Status: Active Protocol: Document 04/28/21 13:45 MB (Rec: 04/28/21 15:24 MB [id number]) OP Gait Assessment Comments Gait Comments 6MWT today without AD and pt has occ scuffing of right foot and frequent scuffing of left foot. He has trouble controlling balance around curves to right or left and tends to hit right knuckles against the wall and hand cream beater (abount 5 times with gait today), decreased arm swing with gait Gait with rollator into clinic and out of clinic: slower and pt less confident than when walking with PT beside him with gait belt and no AD for 6MWT PT-OP-H Neuro Start: 04/28/21 10:19 Freq: Status: Active Protocol: Document 04/28/21 13:45 MB (Rec: 04/28/21 15:24 MB [id number]) Coordination Evaluation Comments Coordination Comments Dysdiadochokinesia with B rapid supination and pronation and tapping one foot's toes over the other foot and back Vital Signs Comments Vital Signs Comments Orthostatic assessment with BP and HR in LUE: supine 130/88, 52; standing 133/94, 57; standing 1' 129/89, 56; standing 2' 130/94, 57. PT-OP-K Range of Motion Start: 04/28/21 10:19 Freq: Status: Active Protocol: Document 04/28/21 13:45 MB (Rec: 04/28/21 15:24 MB [id number]) Shoulder Goniometric Range of Motion Shoulder ROM Limitations Comments End-range shoulder flexion limited B PT-OP-M Strength Start: 04/28/21 10:19 Freq: Status: Active Protocol: Document 04/28/21 13:45 MB (Rec: 04/28/21 15:24 MB [id number]) Shoulder Strength Shoulder Manual Muscle Testing Bilateral Flexion 5 Normal Abduction (C5) 5 Normal Hip Strength Hip Manual Muscle Testing Bilateral Flexion (L2) 5 Normal Knee Strength Knee Manual Muscle Testing Bilateral Flexion (S2) 5 Normal Ankle/Foot Strength Ankle and Foot Manual Muscle Testing Bilateral Dorsiflexion (L4) 5 Normal Toe Strength Toe Manual Muscle Testing Left Great Toe Extension 4 Good Right Great Toe Extension 4 Good PT-OP-Q Treatments Start: 04/28/21 10:19 Freq: Status: Active Protocol: Document 05/18/21 14:16 MB (Rec: 05/18/21 15:32 MB [id number]) Therapeutic Exercises Sitting Exercises side to side Side bilateral Equipment Used Black mat in gym Reps/Minutes 5 reps each direction Comments Cues for BIG back leg, BIG effort picking back leg up to return floor to ceiling Equipment Used Black mat in gym Reps/Minutes 5 reps Comments Improvement today Sit to stands without UE support Sitting Exercise Name BIG sit to stand Equipment Used Black mat in gym Reps/Minutes 10 reps Comments Cues to reach forward and not down Standing Exercises sideways rock and reach Side bilateral Reps/Minutes 10 reps Comments Pt tends to stick out chest, cues to pivot back foot and BIG arms, palms up fwd rock and reach Side bilateral Reps/Minutes 10 reps Comments No UE support today and pt does pretty well backward step Side bilateral Reps/Minutes 10 reps Comments Demo and cues from PT, no UE support sideways step Side bilateral Reps/Minutes 10 reps Comments Cues to look where he is stepping (to the side and then back to front) forward step Side bilateral Reps/Minutes 10 reps Comments Cues for BIG feet Therapeutic Activity Therapeutic Activity Getting in and out of passenger side of car Reps/Minutes 5' Comments Several reps, cues to back up to the seat, sit down first and then put left leg in and then right leg in, shut door. To get out, pivot first, then right foot out, then left foot , step BIG and then BIG shut door Gait Training Gait Activity BIG walking Level of Assistance Superv, cues and demo Surface Outside clinic, sidewalk, grass with incline Distance/Duration 23' Treatment Focus BIG arms and feet clearance Comments Cues not to scuff feet and keep speed up. Pt tends to slow down, did off road more today into grass and pt con't with BIG stepping with PT cues for BIG right turn (90 deg turns) and left turns and he is able to keep up stepping. PT-OP-T Assessment and Plan Start: 04/28/21 10:19 Freq: Status: Active Protocol: Document 05/18/21 14:16 MB (Rec: 05/18/21 15:32 MB [id number]) Physical Therapy Assessment Rehab Potential Rehabilitation Potential Good Evaluation Complexity Number of Personal Factors/Comorbidities 1-2 Number of Body Systems Impaired 3 Clinical Presentation at Evaluation Evolving Impairments Impairments Balance,Coordination, Functional Activities, Functional Mobility,Gait, Posture,ROM Other Impairments Personal factors include tends to speak for patient, cognitive and psychosocial co- morbidities. Body systems involved include cognitive, psychosocial and neurological. His clinical presentation is progressing in setting of medical co-morbidities. Other Concerns Fall Risk Yes Goals 5 Firer Locomotive Goal (LTG) Pt will perform WNLs on a standardized balance test to decrease fall risk by 06/03/21. LTG Duration 4 weeks 4 Correction Goal (LTG) Pt will perform BIG and functional exercises with I to improve amplitude of movement and balance by 06/03/21. LTG Duration 4 weeks 3 Firer Locomotive Goal (LTG) Pt will perform 16 reps sit to stand without UE support in 30 sec to improve functional transfers by 06/03/21. LTG Duration 4 weeks 2 Firer Locomotive Goal (LTG) Pt will gait train at least 1600 feet in 6 minutes without AD or running into objects with knuckles to decrease injury risk by 06/03/21. LTG Duration 4 weeks 1 Correction Goal (LTG) Pt will deny falls at home for a month to decrease injury risk by 06/03/21. LTG Duration 4 weeks Assessment Summary Assessment Pt is doing a lot better with exercises and so provided all standard exercise handouts including backward step today. Gait and functional transfer exercises improve today as well. Physical Therapy Plan Frequency and Duration Frequency of Treatment 16 txs after eval Duration of Treatment 16 treatments after eval Plan of Care Start Date 04/28/21 Plan of Care End Date 06/03/21 Therapeutic Interventions Therapeutic Interventions Balance Training,Canalithic Repositioning,Gait Training, Home Exercise Program, Neuromuscular Re-education, Patient/Caregiver Education, Self-Care/Home Management, Sensory Integration, Therapeutic Activities, Therapeutic Exercises Modalities Cold Pack/Ice Massage,Hot Packs Next Visit Focus/Plan Next Note Type Treatment Note Next Visit Plan Provide balance challenges with BIG exercises and walking
--- NOTE | 2021-05-19 15:35 | PT.OTN ---
Current Diagnoses Parkinson's disease (05/19/21) Physical Therapy Treatment Note PT-OP-A Visit Information Start: 04/28/21 10:19 Freq: Status: Active Protocol: Document 05/19/21 14:17 MB (Rec: 05/19/21 15:35 MB [id number]) Out-Patient Physical Therapy Visit Information Visit Information Visit Type Treatment Note Visit Note Medicare Regence 05/21 before KX Wait list for LOUD Visit Start Time 14:17 Visit Stop Time 15:17 Total Visit Minutes 60 Visit Number 8 Precautions Precautions Fall risk, impulsivity, cognitive challenges PT-OP-B Current Condition Start: 04/28/21 10:19 Freq: Status: Active Protocol: Document 04/28/21 13:45 MB (Rec: 04/28/21 14:05 MB [id number]) Current Condition History of Current Condition Onset Date Two years ago Current Complaints Hand tremors, forgetfulness, imbalance, shuffling feet History of Current Condition Pt lives with , Esmer. They have a cat who is on her last legs. They live in a one story house with no stairs to enter. He has a cane and rollator. He has been using the rollator for 4 months d/t falls. HHPT told him to do this. Symptoms of PD have been hand tremors, shuffling feet, forgetfulness. He hopes to have LOUD therapy as well and is on a wait list . Pt reports that he does get light-headedness mid-mornings. He reports dehydration. He takes a ton of medicine for his colon to get it running d/ t constipation. He drinks a lot of water for [place]. Pt has moderate kidney disease. Pt reports a tendency to bump into things. He does not have any pain now. Treatment Goals Patient/Caregiver Goals Learn how to walk safely, not shuffle, better balance PT-OP-C Subjective Start: 04/28/21 10:19 Freq: Status: Active Protocol: Document 05/19/21 14:17 MB (Rec: 05/19/21 15:35 MB [id number]) OP-PT Subjective Patient Comments Patient Comments No new reports. He and have not been for BIG walks yet at home. PT re-ed pt and in importance of this--at least 20 minute BIG walks a day. PT-OP-D Balance Start: 04/28/21 10:19 Freq: Status: Active Protocol: Document 04/28/21 13:45 MB (Rec: 04/28/21 15:24 MB [id number]) Balance Tests Other Other Balance Tests Performed Pt with LOB to the right with 6MWT and hits his right knuckles several times onto wall and once on hand drug room clerk PT-OP-G Mobility & Gait Start: 04/28/21 10:19 Freq: Status: Active Protocol: Document 04/28/21 13:45 MB (Rec: 04/28/21 15:24 MB [id number]) OP Gait Assessment Comments Gait Comments 6MWT today without AD and pt has occ scuffing of right foot and frequent scuffing of left foot. He has trouble controlling balance around curves to right or left and tends to hit right knuckles against the wall and hand drug room clerk (abount 5 times with gait today), decreased arm swing with gait Gait with rollator into clinic and out of clinic: slower and pt less confident than when walking with PT beside him with gait belt and no AD for 6MWT PT-OP-H Neuro Start: 04/28/21 10:19 Freq: Status: Active Protocol: Document 04/28/21 13:45 MB (Rec: 04/28/21 15:24 MB [id number]) Coordination Evaluation Comments Coordination Comments Dysdiadochokinesia with B rapid supination and pronation and tapping one foot's toes over the other foot and back Vital Signs Comments Vital Signs Comments Orthostatic assessment with BP and HR in LUE: supine 130/88, 52; standing 133/94, 57; standing 1' 129/89, 56; standing 2' 130/94, 57. PT-OP-K Range of Motion Start: 04/28/21 10:19 Freq: Status: Active Protocol: Document 04/28/21 13:45 MB (Rec: 04/28/21 15:24 MB [id number]) Shoulder Goniometric Range of Motion Shoulder ROM Limitations Comments End-range shoulder flexion limited B PT-OP-M Strength Start: 04/28/21 10:19 Freq: Status: Active Protocol: Document 04/28/21 13:45 MB (Rec: 04/28/21 15:24 MB [id number]) Shoulder Strength Shoulder Manual Muscle Testing Bilateral Flexion 5 Normal Abduction (C5) 5 Normal Hip Strength Hip Manual Muscle Testing Bilateral Flexion (L2) 5 Normal Knee Strength Knee Manual Muscle Testing Bilateral Flexion (S2) 5 Normal Ankle/Foot Strength Ankle and Foot Manual Muscle Testing Bilateral Dorsiflexion (L4) 5 Normal Toe Strength Toe Manual Muscle Testing Left Great Toe Extension 4 Good Right Great Toe Extension 4 Good PT-OP-Q Treatments Start: 04/28/21 10:19 Freq: Status: Active Protocol: Document 05/19/21 14:17 MB (Rec: 05/19/21 15:35 MB [id number]) Therapeutic Exercises Sitting Exercises side to side Side bilateral Equipment Used Outside, teal chair with blue cushion, yoga mat under feet Reps/Minutes 5 reps each direction Comments Cues to improve rotation floor to ceiling Equipment Used Outside, teal chair with blue cushion, yoga mat doubled under feet Reps/Minutes 6 reps Comments Improvement Sit to stands without UE support Side bilateral Equipment Used Outside, teal chair with blue cushion, yoga mat under feet Reps/Minutes 15 reps Comments More challenging with mat, good job today Standing Exercises sideways rock and reach Side bilateral Reps/Minutes 10 reps Comments Tends to stick out chest, one LOB backwards fwd rock and reach Side bilateral Equipment Used Outside looking into window Reps/Minutes 10 reps backward step Side bilateral Reps/Minutes 10 reps Comments Too hard on yoga mat, pt has trouble recalling sideways step Side bilateral Reps/Minutes 10 reps Comments Cues to look to side and back forward step Side bilateral Equipment Used Yoga mat, outside looking into window Reps/Minutes 10 reps Comments Cues for BIG feet, left foot always tends to be placed further back than ri Therapeutic Activity Therapeutic Activity Getting in and out of passenger side of car Reps/Minutes 30 sec Comments Pt performs getting into care at end of treatment Gait Training Gait Activity BIG walking Level of Assistance Superv, cues, demo Surface Carpet, claire, yoga and blue mats, mini hurdles, indoor big staircase Distance/Duration 30' Treatment Focus Picking up feet, keeping up rimma Comments Pt has trouble clearing mini hurdles in // bars and knocks several down first few reps and then improves with slowing down and cues to lift legs higher and strike with flat foot. Cues to keep up rimma. Indoor staircase outside clinic was very challenging. One LOB ascending and PT assist through gait belt to prevent forward fall. Pt tends to step too fast and without being close to the next step. Cues to slow down and hit flat footed. He holds onto rail. 2 trials ascend and descend. PT-OP-T Assessment and Plan Start: 04/28/21 10:19 Freq: Status: Active Protocol: Document 05/19/21 14:17 MB (Rec: 05/19/21 15:35 MB [id number]) Physical Therapy Assessment Rehab Potential Rehabilitation Potential Good Evaluation Complexity Number of Personal Factors/Comorbidities 1-2 Number of Body Systems Impaired 3 Clinical Presentation at Evaluation Evolving Impairments Impairments Balance,Coordination, Functional Activities, Functional Mobility,Gait, Posture,ROM Other Impairments Personal factors include tends to speak for patient, cognitive and psychosocial co- morbidities. Body systems involved include cognitive, psychosocial and neurological. His clinical presentation is progressing in setting of medical co-morbidities. Other Concerns Fall Risk Yes Goals 5 Skilled Nursing Goal (LTG) Pt will perform WNLs on a standardized balance test to decrease fall risk by 06/03/21. LTG Duration 4 weeks 4 Senior Embedded Software Engineer Goal (LTG) Pt will perform BIG and functional exercises with I to improve amplitude of movement and balance by 06/03/21. LTG Duration 4 weeks 3 Senior Embedded Software Engineer Goal (LTG) Pt will perform 16 reps sit to stand without UE support in 30 sec to improve functional transfers by 06/03/21. LTG Duration 4 weeks 2 Senior Embedded Software Engineer Goal (LTG) Pt will gait train at least 1600 feet in 6 minutes without AD or running into objects with knuckles to decrease injury risk by 06/03/21. LTG Duration 4 weeks 1 Senior Embedded Software Engineer Goal (LTG) Pt will deny falls at home for a month to decrease injury risk by 06/03/21. LTG Duration 4 weeks Assessment Summary Assessment Pt is doing a lot better with exercises and so provided all standard exercise handouts including backward step today. Gait and functional transfer exercises improve today as well. Physical Therapy Plan Frequency and Duration Frequency of Treatment 16 txs after eval Duration of Treatment 16 treatments after eval Plan of Care Start Date 04/28/21 Plan of Care End Date 06/03/21 Therapeutic Interventions Therapeutic Interventions Balance Training,Canalithic Repositioning,Gait Training, Home Exercise Program, Neuromuscular Re-education, Patient/Caregiver Education, Self-Care/Home Management, Sensory Integration, Therapeutic Activities, Therapeutic Exercises Modalities Cold Pack/Ice Massage,Hot Packs Next Visit Focus/Plan Next Note Type Treatment Note Next Visit Plan Continue balance challenges with BIG exercises and walking --gait belt on for exercises and especially steps
--- NOTE | 2021-05-20 17:13 | PT.OTN ---
Current Diagnoses Parkinson's disease (05/20/21) Physical Therapy Treatment Note PT-OP-A Visit Information Start: 04/28/21 10:19 Freq: Status: Active Protocol: Document 05/20/21 17:02 AW (Rec: 05/20/21 17:10 AW [id number]) Out-Patient Physical Therapy Visit Information Visit Information Visit Type Treatment Note Visit Note Medicare Regence 06/21 before KX Wait list for LOUD Visit Start Time 14:15 Visit Stop Time 15:14 Total Visit Minutes 59 Visit Number 9 Precautions Precautions Fall risk, impulsivity, cognitive challenges PT-OP-B Current Condition Start: 04/28/21 10:19 Freq: Status: Active Protocol: Document 04/28/21 13:45 MB (Rec: 04/28/21 14:05 MB [id number]) Current Condition History of Current Condition Onset Date Two years ago Current Complaints Hand tremors, forgetfulness, imbalance, shuffling feet History of Current Condition Pt lives with , Esmer. They have a cat who is on her last legs. They live in a one story house with no stairs to enter. He has a cane and rollator. He has been using the rollator for 4 months d/t falls. HHPT told him to do this. Symptoms of PD have been hand tremors, shuffling feet, forgetfulness. He hopes to have LOUD therapy as well and is on a wait list . Pt reports that he does get light-headedness mid-mornings. He reports dehydration. He takes a ton of medicine for his colon to get it running d/ t constipation. He drinks a lot of water for [place]. Pt has moderate kidney disease. Pt reports a tendency to bump into things. He does not have any pain now. Treatment Goals Patient/Caregiver Goals Learn how to walk safely, not shuffle, better balance PT-OP-C Subjective Start: 04/28/21 10:19 Freq: Status: Active Protocol: Document 05/20/21 17:02 AW (Rec: 05/20/21 17:10 AW [id number]) OP-PT Subjective Patient Comments Patient Comments Pt has not done his BIG walking homework but is feeling better about the daily exercises. PT-OP-D Balance Start: 04/28/21 10:19 Freq: Status: Active Protocol: Document 04/28/21 13:45 MB (Rec: 04/28/21 15:24 MB [id number]) Balance Tests Other Other Balance Tests Performed Pt with LOB to the right with 6MWT and hits his right knuckles several times onto wall and once on hand porcelain finisher PT-OP-G Mobility & Gait Start: 04/28/21 10:19 Freq: Status: Active Protocol: Document 04/28/21 13:45 MB (Rec: 04/28/21 15:24 MB [id number]) OP Gait Assessment Comments Gait Comments 6MWT today without AD and pt has occ scuffing of right foot and frequent scuffing of left foot. He has trouble controlling balance around curves to right or left and tends to hit right knuckles against the wall and hand porcelain finisher (abount 5 times with gait today), decreased arm swing with gait Gait with rollator into clinic and out of clinic: slower and pt less confident than when walking with PT beside him with gait belt and no AD for 6MWT PT-OP-H Neuro Start: 04/28/21 10:19 Freq: Status: Active Protocol: Document 04/28/21 13:45 MB (Rec: 04/28/21 15:24 MB [id number]) Coordination Evaluation Comments Coordination Comments Dysdiadochokinesia with B rapid supination and pronation and tapping one foot's toes over the other foot and back Vital Signs Comments Vital Signs Comments Orthostatic assessment with BP and HR in LUE: supine 130/88, 52; standing 133/94, 57; standing 1' 129/89, 56; standing 2' 130/94, 57. PT-OP-K Range of Motion Start: 04/28/21 10:19 Freq: Status: Active Protocol: Document 04/28/21 13:45 MB (Rec: 04/28/21 15:24 MB [id number]) Shoulder Goniometric Range of Motion Shoulder ROM Limitations Comments End-range shoulder flexion limited B PT-OP-M Strength Start: 04/28/21 10:19 Freq: Status: Active Protocol: Document 04/28/21 13:45 MB (Rec: 04/28/21 15:24 MB [id number]) Shoulder Strength Shoulder Manual Muscle Testing Bilateral Flexion 5 Normal Abduction (C5) 5 Normal Hip Strength Hip Manual Muscle Testing Bilateral Flexion (L2) 5 Normal Knee Strength Knee Manual Muscle Testing Bilateral Flexion (S2) 5 Normal Ankle/Foot Strength Ankle and Foot Manual Muscle Testing Bilateral Dorsiflexion (L4) 5 Normal Toe Strength Toe Manual Muscle Testing Left Great Toe Extension 4 Good Right Great Toe Extension 4 Good PT-OP-Q Treatments Start: 04/28/21 10:19 Freq: Status: Active Protocol: Document 05/20/21 17:02 AW (Rec: 05/20/21 17:10 AW [id number]) Therapeutic Exercises Sitting Exercises side to side Side bilateral Equipment Used inside, mesh chair Reps/Minutes 5 reps each direction Comments cues for trunk extension floor to ceiling Equipment Used inside, mesh chair Reps/Minutes 6 reps Comments 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 Sit to stands without UE support Side bilateral Equipment Used inside, mesh chair, blue foam on floor Reps/Minutes 8 reps x 2 Comments reinforced BIG fwd lean especially with return to sit Standing Exercises sideways rock and reach Side bilateral Reps/Minutes 10 reps Comments good rotation uncued fwd rock and reach Side bilateral Reps/Minutes 10 reps Comments difficulty performing wt shift without lifting front heel backward step Side bilateral Reps/Minutes 10 reps Comments one posterior LOB, recovered without assist sideways step Side bilateral Reps/Minutes 10 reps Comments Cues to look to side and back forward step Side bilateral Reps/Minutes 10 reps Comments cues for big hip flexion (not step length) Gait Training Gait Activity BIG walking Level of Assistance Superv, cues, demo Surface indoor large staircase, carpet , tile, outside sidewalks Distance/Duration 30' Treatment Focus Picking up feet, keeping up rimma Comments Improved with hurdles CGA no / /. Near helipad, pt practiced walking around parking blocks. BIG walking ok without distraction and better downhill. When going uphill or when tasked cognitively, pt reverts to L foot scuff. Indoor staircase outside clinic continues to be challenging - especially on descent with pt unable to accurately place foot on step for safe descent. PT-OP-T Assessment and Plan Start: 04/28/21 10:19 Freq: Status: Active Protocol: Document 05/20/21 17:02 AW (Rec: 05/20/21 17:13 AW [id number]) Physical Therapy Assessment Rehab Potential Rehabilitation Potential Good Evaluation Complexity Number of Personal Factors/Comorbidities 1-2 Number of Body Systems Impaired 3 Clinical Presentation at Evaluation Evolving Impairments Impairments Balance,Coordination, Functional Activities, Functional Mobility,Gait, Posture,ROM Other Impairments Personal factors include tends to speak for patient, cognitive and psychosocial co- morbidities. Body systems involved include cognitive, psychosocial and neurological. His clinical presentation is progressing in setting of medical co-morbidities. Other Concerns Fall Risk Yes Goals 5 Jail Goal (LTG) Pt will perform WNLs on a standardized balance test to decrease fall risk by 06/03/21. LTG Duration 4 weeks 4 Community Center Director Goal (LTG) Pt will perform BIG and functional exercises with I to improve amplitude of movement and balance by 06/03/21. LTG Duration 4 weeks 3 Community Center Director Goal (LTG) Pt will perform 16 reps sit to stand without UE support in 30 sec to improve functional transfers by 06/03/21. LTG Duration 4 weeks 2 Community Center Director Goal (LTG) Pt will gait train at least 1600 feet in 6 minutes without AD or running into objects with knuckles to decrease injury risk by 06/03/21. LTG Duration 4 weeks 1 Community Center Director Goal (LTG) Pt will deny falls at home for a month to decrease injury risk by 06/03/21. LTG Duration 4 weeks Assessment Summary Assessment Pt's balance has improved significantly. He does have 2 LOB in clinic today but this represents improvement compared with one week ago. 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 He is able to improve hip flexion for foot clearance in gait when not distracted. Cognitive load presents a challenge for same. Physical Therapy Plan Frequency and Duration Frequency of Treatment 16 txs after eval Duration of Treatment 16 treatments after eval Plan of Care Start Date 04/28/21 Plan of Care End Date 06/03/21 Therapeutic Interventions Therapeutic Interventions Balance Training,Canalithic Repositioning,Gait Training, Home Exercise Program, Neuromuscular Re-education, Patient/Caregiver Education, Self-Care/Home Management, Sensory Integration, Therapeutic Activities, Therapeutic Exercises Modalities Cold Pack/Ice Massage,Hot Packs Next Visit Focus/Plan Next Note Type Treatment Note Next Visit Plan Continue balance challenges with BIG exercises and walking --gait belt on for exercises and especially steps
--- NOTE | 2021-05-21 15:41 | PT.OTN ---
Current Diagnoses Parkinson's disease (05/21/21) Physical Therapy Treatment Note PT-OP-A Visit Information Start: 04/28/21 10:19 Freq: Status: Active Protocol: Document 05/21/21 14:15 MB (Rec: 05/21/21 15:41 MB [id number]) Out-Patient Physical Therapy Visit Information Visit Information Visit Type Progress Note Visit Note Medicare Regence 07/21 before KX Wait list for LOUD Visit Start Time 14:15 Visit Stop Time 15:11 Total Visit Minutes 56 Visit Number 10 Precautions Precautions Fall risk, impulsivity, cognitive challenges PT-OP-B Current Condition Start: 04/28/21 10:19 Freq: Status: Active Protocol: Document 04/28/21 13:45 MB (Rec: 04/28/21 14:05 MB [id number]) Current Condition History of Current Condition Onset Date Two years ago Current Complaints Hand tremors, forgetfulness, imbalance, shuffling feet History of Current Condition Pt lives with , Esmer. They have a cat who is on her last legs. They live in a one story house with no stairs to enter. He has a cane and rollator. He has been using the rollator for 4 months d/t falls. HHPT told him to do this. Symptoms of PD have been hand tremors, shuffling feet, forgetfulness. He hopes to have LOUD therapy as well and is on a wait list . Pt reports that he does get light-headedness mid-mornings. He reports dehydration. He takes a ton of medicine for his colon to get it running d/ t constipation. He drinks a lot of water for [place]. Pt has moderate kidney disease. Pt reports a tendency to bump into things. He does not have any pain now. Treatment Goals Patient/Caregiver Goals Learn how to walk safely, not shuffle, better balance PT-OP-C Subjective Start: 04/28/21 10:19 Freq: Status: Active Protocol: Document 05/21/21 14:15 MB (Rec: 05/21/21 15:41 MB [id number]) OP-PT Subjective Patient Comments Patient Comments Pt is feeling bad that he did not get BIG exercises done yesterday morning. He was out late to dinner with and friends. He has not been using the walker at home. He and have not been doing BIG walks. PT-OP-D Balance Start: 04/28/21 10:19 Freq: Status: Active Protocol: Document 04/28/21 13:45 MB (Rec: 04/28/21 15:24 MB [id number]) Balance Tests Other Other Balance Tests Performed Pt with LOB to the right with 6MWT and hits his right knuckles several times onto wall and once on hand revenue collector PT-OP-G Mobility & Gait Start: 04/28/21 10:19 Freq: Status: Active Protocol: Document 04/28/21 13:45 MB (Rec: 04/28/21 15:24 MB [id number]) OP Gait Assessment Comments Gait Comments 6MWT today without AD and pt has occ scuffing of right foot and frequent scuffing of left foot. He has trouble controlling balance around curves to right or left and tends to hit right knuckles against the wall and hand revenue collector (abount 5 times with gait today), decreased arm swing with gait Gait with rollator into clinic and out of clinic: slower and pt less confident than when walking with PT beside him with gait belt and no AD for 6MWT PT-OP-H Neuro Start: 04/28/21 10:19 Freq: Status: Active Protocol: Document 04/28/21 13:45 MB (Rec: 04/28/21 15:24 MB [id number]) Coordination Evaluation Comments Coordination Comments Dysdiadochokinesia with B rapid supination and pronation and tapping one foot's toes over the other foot and back Vital Signs Comments Vital Signs Comments Orthostatic assessment with BP and HR in LUE: supine 130/88, 52; standing 133/94, 57; standing 1' 129/89, 56; standing 2' 130/94, 57. PT-OP-K Range of Motion Start: 04/28/21 10:19 Freq: Status: Active Protocol: Document 04/28/21 13:45 MB (Rec: 04/28/21 15:24 MB [id number]) Shoulder Goniometric Range of Motion Shoulder ROM Limitations Comments End-range shoulder flexion limited B PT-OP-M Strength Start: 04/28/21 10:19 Freq: Status: Active Protocol: Document 04/28/21 13:45 MB (Rec: 04/28/21 15:24 MB [id number]) Shoulder Strength Shoulder Manual Muscle Testing Bilateral Flexion 5 Normal Abduction (C5) 5 Normal Hip Strength Hip Manual Muscle Testing Bilateral Flexion (L2) 5 Normal Knee Strength Knee Manual Muscle Testing Bilateral Flexion (S2) 5 Normal Ankle/Foot Strength Ankle and Foot Manual Muscle Testing Bilateral Dorsiflexion (L4) 5 Normal Toe Strength Toe Manual Muscle Testing Left Great Toe Extension 4 Good Right Great Toe Extension 4 Good PT-OP-Q Treatments Start: 04/28/21 10:19 Freq: Status: Active Protocol: Document 05/21/21 14:15 MB (Rec: 05/21/21 15:41 MB [id number]) Therapeutic Exercises Sitting Exercises side to side Side bilateral Equipment Used Outside, teal chair with blue cushion, yoga mat under feet Reps/Minutes 10 reps each direction Comments Improvement today floor to ceiling Equipment Used Outside, teal chair with blue cushion, yoga mat doubled under feet Reps/Minutes 6 reps Comments Improvement Sit to stands without UE support Side bilateral Equipment Used Outside, teal chair with blue cushion, yoga mat under feet Reps/Minutes 15 reps Comments Improvement with this Standing Exercises sideways rock and reach Side bilateral Reps/Minutes 10 reps Comments No LOB today, a couple of reps to practice pivot, sticks chest out, improve fwd rock and reach Side bilateral Equipment Used Outside looking into window, yoga mat under feet Reps/Minutes 10 reps Comments Improvement, even with yoga mat underneath feet backward step Side bilateral Equipment Used Outside looking in window, yoga mat under feet Reps/Minutes 10 reps Comments Improvment today sideways step Side bilateral Equipment Used Outside on yoga mat Reps/Minutes 10 reps Comments Improvement today forward step Side bilateral Equipment Used Yoga mat, outside looking into window Reps/Minutes 10 reps Comments Improvement today, cues for BIG feet Gait Training Gait Activity BIG walking Description Also balance beam and cones today Level of Assistance Superv, cues, demo, occ CGA Surface Carpet, claire, yoga and blue mats, mini hurdles, indoor big staircase Distance/Duration 25' Treatment Focus Picking up feet and keeping up rimma, not brushing into hill Comments Much improvement with picking up feet today, even with harder course, repeated stairs in clinic and set outside clinic with use of rails, improvement in heel strike and stepping over hurdles in // bars, able to perform balance beam several times without falling off, walked course clockwise and counterclockwise , weaving around 5 hurdles in back hallway, head turns in longer hallway to see if he would bump into wall and 3 bumps to the right PT-OP-T Assessment and Plan Start: 04/28/21 10:19 Freq: Status: Active Protocol: Document 05/21/21 14:15 MB (Rec: 05/21/21 15:41 MB [id number]) Physical Therapy Assessment Rehab Potential Rehabilitation Potential Good Evaluation Complexity Number of Personal Factors/Comorbidities 1-2 Number of Body Systems Impaired 3 Clinical Presentation at Evaluation Evolving Impairments Impairments Balance,Coordination, Functional Activities, Functional Mobility,Gait, Posture,ROM Other Impairments Personal factors include tends to speak for patient, cognitive and psychosocial co- morbidities. Body systems involved include cognitive, psychosocial and neurological. His clinical presentation is progressing in setting of medical co-morbidities. Other Concerns Fall Risk Yes Goals 5 Penitentiary Goal (LTG) Pt will perform WNLs on a standardized balance test to decrease fall risk by 06/04/21. 05/21/21: Pt's balance is much improved. LTG Duration 7 treatments 4 Drier Transfer Car Operator Goal (LTG) Pt will perform BIG and functional exercises with I to improve amplitude of movement and balance by 06/04/21. 05/21/21: Pt has improved greatly with BIG exercises and is able to perform all standard exercises and some with challenges. LTG Duration 7 treatments 3 Drier Transfer Car Operator Goal (LTG) Pt will perform 16 reps sit to stand without UE support in 30 sec to improve functional transfers by 06/04/21. 05/21/21: Did not formally test today d/t time LTG Duration 7 treatments 2 Penitentiary Goal (LTG) Pt will gait train at least 1600 feet in 6 minutes without AD or running into objects with knuckles to decrease injury risk by 06/04/21. 05/21/21: Pt has much improvement with gait, less scuffing of feet and bumping into hill. Will do a 6MWT on d/c date. LTG Duration 7 treatments 1 Drier Transfer Car Operator Goal (LTG) Pt will deny falls at home for a month to decrease injury risk by 06/03/21. 05/21/21: No falls since starting PT LTG Duration Met Assessment Summary Assessment Pt has progressed with BIG exercises, balance and gait greatly over this past week. He is not using an AD at home, he has not fallen and PT has advanced exercises and gait to include balance challenges. Cognitive challenge such as asking questions about his classic car does literally trip him up on the steps today . Will con't to see if can introduce more conversation into gait and balance tasks. Pt is doing a great job with LSVT BIG. 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 PT feels this is a reasonable goal to pursue and recommend talking with doctor about this. He could get an OT driving test. LSVT LOUD may assist with some cognitive issues as well. This date, he remembers tasks better and follows more complicated multi -tasks like head turns with gait, marches with performing michelle stepping. Physical Therapy Plan Frequency and Duration Frequency of Treatment 16 txs after eval Duration of Treatment 7 treatments after today Plan of Care Start Date 05/21/21 Plan of Care End Date 06/04/21 Therapeutic Interventions Therapeutic Interventions Balance Training,Canalithic Repositioning,Gait Training, Home Exercise Program, Neuromuscular Re-education, Patient/Caregiver Education, Self-Care/Home Management, Sensory Integration, Therapeutic Activities, Therapeutic Exercises Modalities Cold Pack/Ice Massage,Hot Packs Next Visit Focus/Plan Next Note Type Treatment Note Next Visit Plan Continue balance challenges with BIG exercises and walking
--- NOTE | 2021-05-21 15:41 | PT.OPPOC ---
Physical, Occupational & Speech Therapy At [facility] Current Diagnoses Parkinson's disease (05/21/21) Visit Care Team Role Provider Type Og Larios MD Attending Provider Physician Primary Care Provider Referring Provider Specialty: Internal Medicine Address: [address] [place] [address], [id number] Email: [email or web address] Plan Of Care PT-OP-T Assessment and Plan Start: 04/28/21 10:19 Freq: Status: Active Protocol: Document 05/21/21 14:15 MB (Rec: 05/21/21 15:41 MB [id number]) Physical Therapy Assessment Rehab Potential Rehabilitation Potential Good Evaluation Complexity Number of Personal Factors/Comorbidities 1-2 Number of Body Systems Impaired 3 Clinical Presentation at Evaluation Evolving Impairments Impairments Balance,Coordination, Functional Activities, Functional Mobility,Gait, Posture,ROM Other Impairments Personal factors include tends to speak for patient, cognitive and psychosocial co- morbidities. Body systems involved include cognitive, psychosocial and neurological. His clinical presentation is progressing in setting of medical co-morbidities. Other Concerns Fall Risk Yes Goals 5 Sulfuric Acid Plant Supervisor Goal (LTG) Pt will perform WNLs on a standardized balance test to decrease fall risk by 06/04/21. 05/21/21: Pt's balance is much improved. LTG Duration 7 treatments 4 Senior Care Goal (LTG) Pt will perform BIG and functional exercises with I to improve amplitude of movement and balance by 06/04/21. 05/21/21: Pt has improved greatly with BIG exercises and is able to perform all standard exercises and some with challenges. LTG Duration 7 treatments 3 Senior Care Goal (LTG) Pt will perform 16 reps sit to stand without UE support in 30 sec to improve functional transfers by 06/04/21. 05/21/21: Did not formally test today d/t time LTG Duration 7 treatments 2 Senior Care Goal (LTG) Pt will gait train at least 1600 feet in 6 minutes without AD or running into objects with knuckles to decrease injury risk by 06/04/21. 05/21/21: Pt has much improvement with gait, less scuffing of feet and bumping into hill. Will do a 6MWT on d/c date. LTG Duration 7 treatments 1 Sulfuric Acid Plant Supervisor Goal (LTG) Pt will deny falls at home for a month to decrease injury risk by 06/03/21. 05/21/21: No falls since starting PT LTG Duration Met Assessment Summary Assessment Pt has progressed with BIG exercises, balance and gait greatly over this past week. He is not using an AD at home, he has not fallen and PT has advanced exercises and gait to include balance challenges. Cognitive challenge such as asking questions about his classic car does literally trip him up on the steps today . Will con't to see if can introduce more conversation into gait and balance tasks. Pt is doing a great job with LSVT BIG. 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 PT feels this is a reasonable goal to pursue and recommend talking with doctor about this. He could get an OT driving test. LSVT LOUD may assist with some cognitive issues as well. This date, he remembers tasks better and follows more complicated multi -tasks like head turns with gait, marches with performing michelle stepping. Physical Therapy Plan Frequency and Duration Frequency of Treatment 16 txs after eval Duration of Treatment 7 treatments after today Plan of Care Start Date 05/21/21 Plan of Care End Date 06/04/21 Therapeutic Interventions Therapeutic Interventions Balance Training,Canalithic Repositioning,Gait Training, Home Exercise Program, Neuromuscular Re-education, Patient/Caregiver Education, Self-Care/Home Management, Sensory Integration, Therapeutic Activities, Therapeutic Exercises Modalities Cold Pack/Ice Massage,Hot Packs Next Visit Focus/Plan Next Note Type Treatment Note Next Visit Plan Continue balance challenges with BIG exercises and walking Plan of Care Dates Plan of Care Start Date 05/21/21 Plan of Care End Date 06/04/21 Electronically Signed by: Jenny Burrell, PT 05/21/21 [id number] Please Sign and Return: I have reviewed this Plan of Care and certify that the skilled therapy services above are required to meet the patient?s needs. Physician Signature Date Printed Name and Credentials Clinical Instructor Signature Printed Name and Credentials
--- NOTE | 2021-05-25 15:28 | PT.OTN ---
Current Diagnoses Parkinson's disease (05/25/21) Physical Therapy Treatment Note PT-OP-A Visit Information Start: 04/28/21 10:19 Freq: Status: Active Protocol: Document 05/25/21 14:15 MB (Rec: 05/25/21 15:28 MB [id number]) Out-Patient Physical Therapy Visit Information Visit Information Visit Type Treatment Note Visit Note Medicare Regence 08/21 before KX Wait list for LOUD Visit Start Time 14:15 Visit Stop Time 15:09 Total Visit Minutes 54 Visit Number 11 Precautions Precautions Fall risk, impulsivity, cognitive challenges PT-OP-B Current Condition Start: 04/28/21 10:19 Freq: Status: Active Protocol: Document 04/28/21 13:45 MB (Rec: 04/28/21 14:05 MB [id number]) Current Condition History of Current Condition Onset Date Two years ago Current Complaints Hand tremors, forgetfulness, imbalance, shuffling feet History of Current Condition Pt lives with , Esmer. They have a cat who is on her last legs. They live in a one story house with no stairs to enter. He has a cane and rollator. He has been using the rollator for 4 months d/t falls. HHPT told him to do this. Symptoms of PD have been hand tremors, shuffling feet, forgetfulness. He hopes to have LOUD therapy as well and is on a wait list . Pt reports that he does get light-headedness mid-mornings. He reports dehydration. He takes a ton of medicine for his colon to get it running d/ t constipation. He drinks a lot of water for [place]. Pt has moderate kidney disease. Pt reports a tendency to bump into things. He does not have any pain now. Treatment Goals Patient/Caregiver Goals Learn how to walk safely, not shuffle, better balance PT-OP-C Subjective Start: 04/28/21 10:19 Freq: Status: Active Protocol: Document 05/25/21 14:15 MB (Rec: 05/25/21 15:28 MB [id number]) OP-PT Subjective Patient Comments Patient Comments Pt states that he did his exercises on Tuesday but not yesterday. He did do some BIG walking by himself. 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 He has trouble controlling balance around curves to right or left and tends to hit right knuckles against the wall and hand portrait photographer (abount 5 times with gait today), decreased arm swing with gait Gait with rollator into clinic and out of clinic: slower and pt less confident than when walking with PT beside him with gait belt and no AD for 6MWT PT-OP-H Neuro Start: 04/28/21 10:19 Freq: Status: Active Protocol: Document 04/28/21 13:45 MB (Rec: 04/28/21 15:24 MB [id number]) Coordination Evaluation Comments Coordination Comments Dysdiadochokinesia with B rapid supination and pronation and tapping one foot's toes over the other foot and back Vital Signs Comments Vital Signs Comments Orthostatic assessment with BP and HR in LUE: supine 130/88, 52; standing 133/94, 57; standing 1' 129/89, 56; standing 2' 130/94, 57. PT-OP-K Range of Motion Start: 04/28/21 10:19 Freq: Status: Active Protocol: Document 04/28/21 13:45 MB (Rec: 04/28/21 15:24 MB [id number]) Shoulder Goniometric Range of Motion Shoulder ROM Limitations Comments End-range shoulder flexion limited B PT-OP-M Strength Start: 04/28/21 10:19 Freq: Status: Active Protocol: Document 04/28/21 13:45 MB (Rec: 04/28/21 15:24 MB [id number]) Shoulder Strength Shoulder Manual Muscle Testing Bilateral Flexion 5 Normal Abduction (C5) 5 Normal Hip Strength Hip Manual Muscle Testing Bilateral Flexion (L2) 5 Normal Knee Strength Knee Manual Muscle Testing Bilateral Flexion (S2) 5 Normal Ankle/Foot Strength Ankle and Foot Manual Muscle Testing Bilateral Dorsiflexion (L4) 5 Normal Toe Strength Toe Manual Muscle Testing Left Great Toe Extension 4 Good Right Great Toe Extension 4 Good PT-OP-Q Treatments Start: 04/28/21 10:19 Freq: Status: Active Protocol: Document 05/25/21 14:15 MB (Rec: 05/25/21 15:28 MB [id number]) Therapeutic Exercises Sitting Exercises side to side Side bilateral Equipment Used Outside, teal chair with blue cushion, yoga mat under feet Reps/Minutes 10 reps each direction Comments More cues today for form floor to ceiling Equipment Used Outside, teal chair with blue cushion, yoga mat doubled under feet Reps/Minutes 6 reps Sit to stands without UE support Side bilateral Equipment Used Outside, teal chair with blue cushion, yoga mat doubled under feet Reps/Minutes 15 reps Standing Exercises sideways rock and reach Side bilateral Reps/Minutes 5 reps Comments Pt is more cognitively challenged today, imbalanced and cues for this fwd rock and reach Side bilateral Equipment Used Outside looking into window, yoga mat under feet Reps/Minutes 10 reps Comments Smaller movement today than last backward step Side bilateral Equipment Used Outside looking in window, yoga mat under feet Reps/Minutes 10 reps Comments More cues today and pt requires rest break, has some imbalance sideways step Side bilateral Equipment Used Outside on yoga mat Reps/Minutes 10 reps Comments Closer superv today and cues forward step Side bilateral Equipment Used Yoga mat, outside looking into window Reps/Minutes 10 reps Comments Alternating feet, performs well Gait Training Gait Activity BIG walking Level of Assistance Superv, cues, CGA Surface Outside, attempted stairs inside Distance/Duration 23' Treatment Focus Picking up feet and keeping up speed Comments Slower movement today, especially when asked a question or when talking. Less safety awareness when stepping down from curb off of grass. Pt is able to gait train on the grass without LOB . Pt hits COVID STOP sign with left side of his body when approaching indoor steps, misses left hand rail and catches himself on the steps with his hands, PT attempts to slow descent with gait belt PT-OP-T Assessment and Plan Start: 04/28/21 10:19 Freq: Status: Active Protocol: Document 05/25/21 14:15 MB (Rec: 05/25/21 15:28 MB [id number]) Physical Therapy Assessment Rehab Potential Rehabilitation Potential Good Evaluation Complexity Number of Personal Factors/Comorbidities 1-2 Number of Body Systems Impaired 3 Clinical Presentation at Evaluation Evolving Impairments Impairments Balance,Coordination, Functional Activities, Functional Mobility,Gait, Posture,ROM Other Impairments Personal factors include tends to speak for patient, cognitive and psychosocial co- morbidities. Body systems involved include cognitive, psychosocial and neurological. His clinical presentation is progressing in setting of medical co-morbidities. Other Concerns Fall Risk Yes Goals 5 Facsimile Machine Operator Goal (LTG) Pt will perform WNLs on a standardized balance test to decrease fall risk by 06/04/21. 05/21/21: Pt's balance is much improved. LTG Duration 7 treatments 4 Retirement Goal (LTG) Pt will perform BIG and functional exercises with I to improve amplitude of movement and balance by 06/04/21. 05/21/21: Pt has improved greatly with BIG exercises and is able to perform all standard exercises and some with challenges. LTG Duration 7 treatments 3 Facsimile Machine Operator Goal (LTG) Pt will perform 16 reps sit to stand without UE support in 30 sec to improve functional transfers by 06/04/21. 05/21/21: Did not formally test today d/t time LTG Duration 7 treatments 2 Retirement Goal (LTG) Pt will gait train at least 1600 feet in 6 minutes without AD or running into objects with knuckles to decrease injury risk by 06/04/21. 05/21/21: Pt has much improvement with gait, less scuffing of feet and bumping into hill. Will do a 6MWT on d/c date. LTG Duration 7 treatments Assessment Summary Assessment Pt states that he feels off today and a little imbalanced. He presents with more cognitive difficulties today and does lose balance with attempted stair training. Con' t efforts. Overall, he is impulsive and is unable to slow down to listen to PT's cues before running into sign on his left and then causing LOB on the stairs. Physical Therapy Plan Frequency and Duration Frequency of Treatment 16 txs after eval Duration of Treatment 7 treatments after today Plan of Care Start Date 05/21/21 Plan of Care End Date 06/04/21 Therapeutic Interventions Therapeutic Interventions Balance Training,Canalithic Repositioning,Gait Training, Home Exercise Program, Neuromuscular Re-education, Patient/Caregiver Education, Self-Care/Home Management, Sensory Integration, Therapeutic Activities, Therapeutic Exercises Modalities Cold Pack/Ice Massage,Hot Packs Next Visit Focus/Plan Next Note Type Treatment Note Next Visit Plan Continue balance challenges with BIG exercises and walking
--- NOTE | 2021-05-26 15:33 | PT.OTN ---
Current Diagnoses Parkinson's disease (05/26/21) Physical Therapy Treatment Note PT-OP-A Visit Information Start: 04/28/21 10:19 Freq: Status: Active Protocol: Document 05/26/21 14:15 MB (Rec: 05/26/21 15:33 MB [id number]) Out-Patient Physical Therapy Visit Information Visit Information Visit Type Treatment Note Visit Note Medicare Regence 09/20 before KX Wait list for LOUD Visit Start Time 14:15 Visit Stop Time 15:15 Total Visit Minutes 60 Visit Number 12 Precautions Precautions Fall risk, impulsivity, cognitive challenges PT-OP-B Current Condition Start: 04/28/21 10:19 Freq: Status: Active Protocol: Document 04/28/21 13:45 MB (Rec: 04/28/21 14:05 MB [id number]) Current Condition History of Current Condition Onset Date Two years ago Current Complaints Hand tremors, forgetfulness, imbalance, shuffling feet History of Current Condition Pt lives with , Esmer. They have a cat who is on her last legs. They live in a one story house with no stairs to enter. He has a cane and rollator. He has been using the rollator for 4 months d/t falls. HHPT told him to do this. Symptoms of PD have been hand tremors, shuffling feet, forgetfulness. He hopes to have LOUD therapy as well and is on a wait list . Pt reports that he does get light-headedness mid-mornings. He reports dehydration. He takes a ton of medicine for his colon to get it running d/ t constipation. He drinks a lot of water for [place]. Pt has moderate kidney disease. Pt reports a tendency to bump into things. He does not have any pain now. Treatment Goals Patient/Caregiver Goals Learn how to walk safely, not shuffle, better balance PT-OP-C Subjective Start: 04/28/21 10:19 Freq: Status: Active Protocol: Document 05/26/21 14:15 MB (Rec: 05/26/21 15:33 MB [id number]) OP-PT Subjective Patient Comments Patient Comments Pt states that he was apprehensive about coming today after his stumble on the stairs. His right knee cap was bothersome when he went down on his hands and knees to look for the cat under the bed last night. He thinks he might have bumped it on the steps during the tumble yesterday. PT looks and he has some mild ecchymosis proximal lateral to right patella. 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 (abount 5 times with gait today), decreased arm swing with gait Gait with rollator into clinic and out of clinic: slower and pt less confident than when walking with PT beside him with gait belt and no AD for 6MWT PT-OP-H Neuro Start: 04/28/21 10:19 Freq: Status: Active Protocol: Document 04/28/21 13:45 MB (Rec: 04/28/21 15:24 MB [id number]) Coordination Evaluation Comments Coordination Comments Dysdiadochokinesia with B rapid supination and pronation and tapping one foot's toes over the other foot and back Vital Signs Comments Vital Signs Comments Orthostatic assessment with BP and HR in LUE: supine 130/88, 52; standing 133/94, 57; standing 1' 129/89, 56; standing 2' 130/94, 57. PT-OP-K Range of Motion Start: 04/28/21 10:19 Freq: Status: Active Protocol: Document 04/28/21 13:45 MB (Rec: 04/28/21 15:24 MB [id number]) Shoulder Goniometric Range of Motion Shoulder ROM Limitations Comments End-range shoulder flexion limited B PT-OP-M Strength Start: 04/28/21 10:19 Freq: Status: Active Protocol: Document 04/28/21 13:45 MB (Rec: 04/28/21 15:24 MB [id number]) Shoulder Strength Shoulder Manual Muscle Testing Bilateral Flexion 5 Normal Abduction (C5) 5 Normal Hip Strength Hip Manual Muscle Testing Bilateral Flexion (L2) 5 Normal Knee Strength Knee Manual Muscle Testing Bilateral Flexion (S2) 5 Normal Ankle/Foot Strength Ankle and Foot Manual Muscle Testing Bilateral Dorsiflexion (L4) 5 Normal Toe Strength Toe Manual Muscle Testing Left Great Toe Extension 4 Good Right Great Toe Extension 4 Good PT-OP-Q Treatments Start: 04/28/21 10:19 Freq: Status: Active Protocol: Document 05/26/21 14:15 MB (Rec: 05/26/21 15:33 MB [id number]) Therapeutic Exercises Sitting Exercises side to side Side bilateral Equipment Used Outside, teal chair with blue cushion, yoga mat under feet Reps/Minutes 10 reps each direction Comments Improvement today floor to ceiling Equipment Used Outside, teal chair with blue cushion, yoga mat doubled under feet Reps/Minutes 5 reps Sit to stands without UE support Side bilateral Equipment Used Outside, teal chair with blue cushion, yoga mat doubled under feet Reps/Minutes 20 reps Standing Exercises sideways rock and reach Side bilateral Equipment Used Yoga mat Reps/Minutes 10 reps each side alterating Comments Huge improvement being on mat and alterating today fwd rock and reach Side bilateral Equipment Used Outside looking into window, yoga mat under feet Reps/Minutes 10 reps Comments Improvement backward step Side bilateral Equipment Used Outside looking in window, yoga mat under feet Reps/Minutes 10 reps each side alternating Comments Improvement, alternating sideways step Side bilateral Equipment Used Outside on yoga mat Reps/Minutes 10 reps each side alternating Comments Improvement, alternating today forward step Side bilateral Equipment Used Yoga mat, outside looking into window Reps/Minutes 10 reps each side Comments Alternating feet, performs well Gait Training Gait Activity BIG walking Level of Assistance Superv, cues, CGA, PT giving perturbations occ Surface Inside clinic and hospital, close to objects Distance/Duration 23' Treatment Focus Not stumbling or bumping into objects in hospital, learning to assess area Comments Pt does well with the steps today, reaches for rail and clears all stairs over 3 trials ascending and descending on the large staircase. PT does cue him to stop and assess and step close to first step and change rimma before starting. In hospital, PT provides pressure by standing close to pt, trying to get him close to polysilicon preparation worker containers on hill, hill themselves and signs to see if he can avoid hitting his arm. He does well. One episode hitting right shoulder into sign in hospital during conversation. Perturbations in clinic hallway and pt keeps his balance well. Clockwise and counterclockwise walking. PT-OP-T Assessment and Plan Start: 04/28/21 10:19 Freq: Status: Active Protocol: Document 05/26/21 14:15 MB (Rec: 05/26/21 15:33 MB [id number]) Physical Therapy Assessment Rehab Potential Rehabilitation Potential Good Evaluation Complexity Number of Personal Factors/Comorbidities 1-2 Number of Body Systems Impaired 3 Clinical Presentation at Evaluation Evolving Impairments Impairments Balance,Coordination, Functional Activities, Functional Mobility,Gait, Posture,ROM Other Impairments Personal factors include tends to speak for patient, cognitive and psychosocial co- morbidities. Body systems involved include cognitive, psychosocial and neurological. His clinical presentation is progressing in setting of medical co-morbidities. Other Concerns Fall Risk Yes Goals 5 Alf Goal (LTG) Pt will perform WNLs on a standardized balance test to decrease fall risk by 06/04/21. 05/21/21: Pt's balance is much improved. LTG Duration 7 treatments 4 Precision Instrument Maker Goal (LTG) Pt will perform BIG and functional exercises with I to improve amplitude of movement and balance by 06/04/21. 05/21/21: Pt has improved greatly with BIG exercises and is able to perform all standard exercises and some with challenges. LTG Duration 7 treatments 3 Precision Instrument Maker Goal (LTG) Pt will perform 16 reps sit to stand without UE support in 30 sec to improve functional transfers by 06/04/21. 05/21/21: Did not formally test today d/t time LTG Duration 7 treatments 2 Precision Instrument Maker Goal (LTG) Pt will gait train at least 1600 feet in 6 minutes without AD or running into objects with knuckles to decrease injury risk by 06/04/21. 05/21/21: Pt has much improvement with gait, less scuffing of feet and bumping into hill. Will do a 6MWT on d/c date. LTG Duration 7 treatments Assessment Summary Assessment Pt does much better today, no stumbling. PT adds progressive challenges by walking very close to patient in close corners to see if he can avoid running arm into objects and he does well. Con't to encourage assessing the situation to help reduce falls . Physical Therapy Plan Frequency and Duration Frequency of Treatment 16 txs after eval Duration of Treatment 7 treatments after today Plan of Care Start Date 05/21/21 Plan of Care End Date 06/04/21 Therapeutic Interventions Therapeutic Interventions Balance Training,Canalithic Repositioning,Gait Training, Home Exercise Program, Neuromuscular Re-education, Patient/Caregiver Education, Self-Care/Home Management, Sensory Integration, Therapeutic Activities, Therapeutic Exercises Modalities Cold Pack/Ice Massage,Hot Packs Next Visit Focus/Plan Next Note Type Treatment Note Next Visit Plan Con't balance challenges and alterating for BIG exercises, gait belt on. Con't stair training and watching to see if pt can stop to assess situation or change speed as needed between surfaces to prevent fall. Con't adding physical pressure or perturbance to see if he can walk in more narrow areas without banging his arm into objects
--- NOTE | 2021-05-27 17:14 | PT.OTN ---
Current Diagnoses Parkinson's disease (05/27/21) Physical Therapy Treatment Note PT-OP-A Visit Information Start: 04/28/21 10:19 Freq: Status: Active Protocol: Document 05/27/21 15:10 AW (Rec: 05/27/21 15:12 AW [id number]) Out-Patient Physical Therapy Visit Information Visit Information Visit Type Treatment Note Visit Start Time 14:12 Visit Stop Time 15:10 Total Visit Minutes 58 Visit Number 13 Precautions Precautions Fall risk, impulsivity, cognitive challenges PT-OP-B Current Condition Start: 04/28/21 10:19 Freq: Status: Active Protocol: Document 04/28/21 13:45 MB (Rec: 04/28/21 14:05 MB [id number]) Current Condition History of Current Condition Onset Date Two years ago Current Complaints Hand tremors, forgetfulness, imbalance, shuffling feet History of Current Condition Pt lives with , Esmer. They have a cat who is on her last legs. They live in a one story house with no stairs to enter. He has a cane and rollator. He has been using the rollator for 4 months d/t falls. HHPT told him to do this. Symptoms of PD have been hand tremors, shuffling feet, forgetfulness. He hopes to have LOUD therapy as well and is on a wait list . Pt reports that he does get light-headedness mid-mornings. He reports dehydration. He takes a ton of medicine for his colon to get it running d/ t constipation. He drinks a lot of water for [place]. Pt has moderate kidney disease. Pt reports a tendency to bump into things. He does not have any pain now. Treatment Goals Patient/Caregiver Goals Learn how to walk safely, not shuffle, better balance PT-OP-C Subjective Start: 04/28/21 10:19 Freq: Status: Active Protocol: Document 05/27/21 15:10 AW (Rec: 05/27/21 15:12 AW [id number]) OP-PT Subjective Patient Comments Patient Comments Pt notes his and other family members are noticing his improved walking. PT-OP-D Balance Start: 04/28/21 10:19 Freq: Status: Active Protocol: Document 04/28/21 13:45 MB (Rec: 04/28/21 15:24 MB [id number]) Balance Tests Other Other Balance Tests Performed Pt with LOB to the right with 6MWT and hits his right knuckles several times onto wall and once on hand window shade cutter and mounter PT-OP-G Mobility & Gait Start: 04/28/21 10:19 Freq: Status: Active Protocol: Document 04/28/21 13:45 MB (Rec: 04/28/21 15:24 MB [id number]) OP Gait Assessment Comments Gait Comments 6MWT today without AD and pt has occ scuffing of right foot and frequent scuffing of left foot. He has trouble controlling balance around curves to right or left and tends to hit right knuckles against the wall and hand window shade cutter and mounter (abount 5 times with gait today), decreased arm swing with gait Gait with rollator into clinic and out of clinic: slower and pt less confident than when walking with PT beside him with gait belt and no AD for 6MWT PT-OP-H Neuro Start: 04/28/21 10:19 Freq: Status: Active Protocol: Document 04/28/21 13:45 MB (Rec: 04/28/21 15:24 MB [id number]) Coordination Evaluation Comments Coordination Comments Dysdiadochokinesia with B rapid supination and pronation and tapping one foot's toes over the other foot and back Vital Signs Comments Vital Signs Comments Orthostatic assessment with BP and HR in LUE: supine 130/88, 52; standing 133/94, 57; standing 1' 129/89, 56; standing 2' 130/94, 57. PT-OP-K Range of Motion Start: 04/28/21 10:19 Freq: Status: Active Protocol: Document 04/28/21 13:45 MB (Rec: 04/28/21 15:24 MB [id number]) Shoulder Goniometric Range of Motion Shoulder ROM Limitations Comments End-range shoulder flexion limited B PT-OP-M Strength Start: 04/28/21 10:19 Freq: Status: Active Protocol: Document 04/28/21 13:45 MB (Rec: 04/28/21 15:24 MB [id number]) Shoulder Strength Shoulder Manual Muscle Testing Bilateral Flexion 5 Normal Abduction (C5) 5 Normal Hip Strength Hip Manual Muscle Testing Bilateral Flexion (L2) 5 Normal Knee Strength Knee Manual Muscle Testing Bilateral Flexion (S2) 5 Normal Ankle/Foot Strength Ankle and Foot Manual Muscle Testing Bilateral Dorsiflexion (L4) 5 Normal Toe Strength Toe Manual Muscle Testing Left Great Toe Extension 4 Good Right Great Toe Extension 4 Good PT-OP-Q Treatments Start: 04/28/21 10:19 Freq: Status: Active Protocol: Document 05/27/21 15:10 AW (Rec: 05/27/21 17:14 AW [id number]) Therapeutic Exercises Sitting Exercises side to side Side bilateral Equipment Used Outside, teal chair with blue cushion, yoga mat under feet Reps/Minutes 10 reps each direction Comments good uncued self-correction floor to ceiling Equipment Used Outside, teal chair with blue cushion, yoga mat doubled under feet Reps/Minutes 8 reps Sit to stands without UE support Side bilateral Equipment Used Outside, teal chair with blue cushion, yoga mat doubled under feet Reps/Minutes 12 x 2 reps Standing Exercises sideways rock and reach Side bilateral Equipment Used Yoga mat Reps/Minutes 10 reps each side alterating Comments able to alternate sides without cues or demo fwd rock and reach Side bilateral Equipment Used Outside looking into window, yoga mat under feet Reps/Minutes 10 reps Comments cued big arm reach backward step Side bilateral Equipment Used Outside looking in window, yoga mat under feet Reps/Minutes 10 reps each side alternating Comments SBA - no LOB sideways step Side bilateral Equipment Used Outside on yoga mat Reps/Minutes 10 reps each side alternating Comments good altnernating without demo or cues forward step Side bilateral Equipment Used Yoga mat, outside looking into window Reps/Minutes 10 reps each side Comments Alternating feet, performs well Gait Training Gait Activity BIG walking Level of Assistance Superv, cues, CGA, PT giving perturbations occ Surface Inside clinic and hospital, close to objects, stairs Distance/Duration 28' Treatment Focus stability Comments Began with stepping reactions (similar to BEST test). Pt able to recover with one-two steps all planes except backward. He needed 3-4 steps initially to arrest backward fall but improved to 2-3 steps . For gait, used theraband around pt's waist and held with some tension, giving random multidirectional pulls to challenge stability while walking around clinic. No LOB. SBA on stairs ascending but closer SBA to CGA for descending as pt tends to over or undershoot on foot placement. PT-OP-T Assessment and Plan Start: 04/28/21 10:19 Freq: Status: Active Protocol: Document 05/27/21 15:10 AW (Rec: 05/27/21 15:15 AW [id number]) Physical Therapy Assessment Rehab Potential Rehabilitation Potential Good Evaluation Complexity Number of Personal Factors/Comorbidities 1-2 Number of Body Systems Impaired 3 Clinical Presentation at Evaluation Evolving Impairments Impairments Balance,Coordination, Functional Activities, Functional Mobility,Gait, Posture,ROM Other Impairments Personal factors include tends to speak for patient, cognitive and psychosocial co- morbidities. Body systems involved include cognitive, psychosocial and neurological. His clinical presentation is progressing in setting of medical co-morbidities. Other Concerns Fall Risk Yes Goals 5 Correction Goal (LTG) Pt will perform WNLs on a standardized balance test to decrease fall risk by 06/04/21. 05/21/21: Pt's balance is much improved. LTG Duration 7 treatments 4 Manager Diversity Goal (LTG) Pt will perform BIG and functional exercises with I to improve amplitude of movement and balance by 06/04/21. 05/21/21: Pt has improved greatly with BIG exercises and is able to perform all standard exercises and some with challenges. LTG Duration 7 treatments 3 Correction Goal (LTG) Pt will perform 16 reps sit to stand without UE support in 30 sec to improve functional transfers by 06/04/21. 05/21/21: Did not formally test today d/t time LTG Duration 7 treatments 2 Manager Diversity Goal (LTG) Pt will gait train at least 1600 feet in 6 minutes without AD or running into objects with knuckles to decrease injury risk by 06/04/21. 05/21/21: Pt has much improvement with gait, less scuffing of feet and bumping into hill. Will do a 6MWT on d/c date. LTG Duration 7 treatments Assessment Summary Assessment Pt was able to walk with water cup while counting backward by threes a total of 400 feet with minimal foot scuff. Pt notes improving balance and gait, is very pleased to be not using his walker at all any longer. Physical Therapy Plan Frequency and Duration Frequency of Treatment 16 txs after eval Duration of Treatment 7 treatments after today Plan of Care Start Date 05/21/21 Plan of Care End Date 06/04/21 Therapeutic Interventions Therapeutic Interventions Balance Training,Canalithic Repositioning,Gait Training, Home Exercise Program, Neuromuscular Re-education, Patient/Caregiver Education, Self-Care/Home Management, Sensory Integration, Therapeutic Activities, Therapeutic Exercises Modalities Cold Pack/Ice Massage,Hot Packs Next Visit Focus/Plan Next Note Type Treatment Note Next Visit Plan Con't balance challenges and alterating for BIG exercises, gait belt on. Con't stair training and watching to see if pt can stop to assess situation or change speed as needed between surfaces to prevent fall. Con't adding physical pressure or perturbance to see if he can walk in more narrow areas without banging his arm into objects
--- NOTE | 2021-05-28 14:16 | PT-OP ANOTE ---
Pt cancelled appointment d/t feeling dizzy today. His , Siena, answers when PT calls pt. She states that pt didn't drink a lot yesterday and that he needs to drink a lot with his medications. They also didn't eat well yesterday. He gets like this sometimes. They will work on his drinking and diet. He will come to appointments next week. They will check his BP.
--- NOTE | 2021-06-01 15:44 | PT.OTN ---
Current Diagnoses Parkinson's disease (06/01/21) Physical Therapy Treatment Note PT-OP-A Visit Information Start: 04/28/21 10:19 Freq: Status: Active Protocol: Document 06/01/21 14:15 MB (Rec: 06/01/21 15:44 MB [id number]) Out-Patient Physical Therapy Visit Information Visit Information Visit Type Treatment Note Visit Note Medicare before KX Visit Start Time 14:15 Visit Stop Time 15:11 Total Visit Minutes 56 Visit Number 14 Precautions Precautions Fall risk, impulsivity, cognitive challenges PT-OP-B Current Condition Start: 04/28/21 10:19 Freq: Status: Active Protocol: Document 04/28/21 13:45 MB (Rec: 04/28/21 14:05 MB [id number]) Current Condition History of Current Condition Onset Date Two years ago Current Complaints Hand tremors, forgetfulness, imbalance, shuffling feet History of Current Condition Pt lives with , Esmer. They have a cat who is on her last legs. They live in a one story house with no stairs to enter. He has a cane and rollator. He has been using the rollator for 4 months d/t falls. HHPT told him to do this. Symptoms of PD have been hand tremors, shuffling feet, forgetfulness. He hopes to have LOUD therapy as well and is on a wait list . Pt reports that he does get light-headedness mid-mornings. He reports dehydration. He takes a ton of medicine for his colon to get it running d/ t constipation. He drinks a lot of water for [place]. Pt has moderate kidney disease. Pt reports a tendency to bump into things. He does not have any pain now. Treatment Goals Patient/Caregiver Goals Learn how to walk safely, not shuffle, better balance PT-OP-C Subjective Start: 04/28/21 10:19 Freq: Status: Active Protocol: Document 06/01/21 14:15 MB (Rec: 06/01/21 15:44 MB [id number]) OP-PT Subjective Patient Comments Patient Comments Pt states that he used his walker when he went into [place] for a family activity over the weekend. He did the BIG exercises twice but only once a day. PT-OP-D Balance Start: 04/28/21 10:19 Freq: Status: Active Protocol: Document 04/28/21 13:45 MB (Rec: 04/28/21 15:24 MB [id number]) Balance Tests Other Other Balance Tests Performed Pt with LOB to the right with 6MWT and hits his right knuckles several times onto wall and once on hand hearing screen coordinator PT-OP-G Mobility & Gait Start: 04/28/21 10:19 Freq: Status: Active Protocol: Document 04/28/21 13:45 MB (Rec: 04/28/21 15:24 MB [id number]) OP Gait Assessment Comments Gait Comments 6MWT today without AD and pt has occ scuffing of right foot and frequent scuffing of left foot. He has trouble controlling balance around curves to right or left and tends to hit right knuckles against the wall and hand hearing screen coordinator (abount 5 times with gait today), decreased arm swing with gait Gait with rollator into clinic and out of clinic: slower and pt less confident than when walking with PT beside him with gait belt and no AD for 6MWT PT-OP-H Neuro Start: 04/28/21 10:19 Freq: Status: Active Protocol: Document 04/28/21 13:45 MB (Rec: 04/28/21 15:24 MB [id number]) Coordination Evaluation Comments Coordination Comments Dysdiadochokinesia with B rapid supination and pronation and tapping one foot's toes over the other foot and back Vital Signs Comments Vital Signs Comments Orthostatic assessment with BP and HR in LUE: supine 130/88, 52; standing 133/94, 57; standing 1' 129/89, 56; standing 2' 130/94, 57. PT-OP-K Range of Motion Start: 04/28/21 10:19 Freq: Status: Active Protocol: Document 04/28/21 13:45 MB (Rec: 04/28/21 15:24 MB [id number]) Shoulder Goniometric Range of Motion Shoulder ROM Limitations Comments End-range shoulder flexion limited B PT-OP-M Strength Start: 04/28/21 10:19 Freq: Status: Active Protocol: Document 04/28/21 13:45 MB (Rec: 04/28/21 15:24 MB [id number]) Shoulder Strength Shoulder Manual Muscle Testing Bilateral Flexion 5 Normal Abduction (C5) 5 Normal Hip Strength Hip Manual Muscle Testing Bilateral Flexion (L2) 5 Normal Knee Strength Knee Manual Muscle Testing Bilateral Flexion (S2) 5 Normal Ankle/Foot Strength Ankle and Foot Manual Muscle Testing Bilateral Dorsiflexion (L4) 5 Normal Toe Strength Toe Manual Muscle Testing Left Great Toe Extension 4 Good Right Great Toe Extension 4 Good PT-OP-Q Treatments Start: 04/28/21 10:19 Freq: Status: Active Protocol: Document 06/01/21 14:15 MB (Rec: 06/01/21 15:44 MB [id number]) Therapeutic Exercises Sitting Exercises side to side Side bilateral Equipment Used Outside, teal chair with blue cushion, yoga mat under feet Reps/Minutes 10 reps each direction Comments Improvement today floor to ceiling Equipment Used Outside, teal chair with blue cushion, yoga mat doubled under feet Reps/Minutes 5 reps Sit to stands without UE support Side bilateral Equipment Used Outside, teal chair with blue cushion, yoga mat doubled under feet Reps/Minutes 15 reps Standing Exercises sideways rock and reach Side bilateral Equipment Used Yoga mat Reps/Minutes 10 reps each side alterating Comments Pt requires cues for hands and to try to pivot better on foot fwd rock and reach Side bilateral Equipment Used Outside looking into window, yoga mat under feet Reps/Minutes 10 reps Comments Decreased arm swing backward step Side bilateral Equipment Used Outside looking in window, yoga mat under feet Reps/Minutes 10 reps each side alternating Comments Cues today and some trouble alternating sideways step Side bilateral Equipment Used Outside on yoga mat Reps/Minutes 10 reps each side alternating forward step Side bilateral Equipment Used Yoga mat, outside looking into window Reps/Minutes 10 reps each side Comments Alternating feet, tends to move forward, cues for BIG feet Gait Training Gait Activity BIG walking Level of Assistance Superv, cues, CGA Surface Inside clinic and hospital, steps Distance/Duration 25' Treatment Focus burling and joining supervisor feet and not bumping into objects with arms, assessing Comments 6 cones in back hallway, 6 mini hurdles in // bars, one yoga mat on floor--circuits clockwise and counterclockwise , cues for controlled form, not knocking over hurdles or cones or bumping into hill. Pt performs better hurdles with heel strike after cued, knock over hurdles x3 and cones x3 and into objects with right hand x3. When going around people in hospital, pt stops rather than walking through d/t concern about running into them. PT encourages pt to try walking around people as it is real life. Cues to slow rimma as approaching sliding doors at top of long stair case as he almost runs into sliding door with left hand. Ascend and descend staircase x3 with left rail and cues for foot placement and preparing stepping. PT-OP-T Assessment and Plan Start: 04/28/21 10:19 Freq: Status: Active Protocol: Document 06/01/21 14:15 MB (Rec: 06/01/21 15:44 MB [id number]) Physical Therapy Assessment Rehab Potential Rehabilitation Potential Good Evaluation Complexity Number of Personal Factors/Comorbidities 1-2 Number of Body Systems Impaired 3 Clinical Presentation at Evaluation Evolving Impairments Impairments Balance,Coordination, Functional Activities, Functional Mobility,Gait, Posture,ROM Other Impairments Personal factors include tends to speak for patient, cognitive and psychosocial co- morbidities. Body systems involved include cognitive, psychosocial and neurological. His clinical presentation is progressing in setting of medical co-morbidities. Other Concerns Fall Risk Yes Goals 5 Mcc Goal (LTG) Pt will perform WNLs on a standardized balance test to decrease fall risk by 06/04/21. 05/21/21: Pt's balance is much improved. LTG Duration 7 treatments 4 Mcc Goal (LTG) Pt will perform BIG and functional exercises with I to improve amplitude of movement and balance by 06/04/21. 05/21/21: Pt has improved greatly with BIG exercises and is able to perform all standard exercises and some with challenges. LTG Duration 7 treatments 3 Mcc Goal (LTG) Pt will perform 16 reps sit to stand without UE support in 30 sec to improve functional transfers by 06/04/21. 05/21/21: Did not formally test today d/t time LTG Duration 7 treatments 2 Folder And Notcher Goal (LTG) Pt will gait train at least 1600 feet in 6 minutes without AD or running into objects with knuckles to decrease injury risk by 06/04/21. 05/21/21: Pt has much improvement with gait, less scuffing of feet and bumping into hill. Will do a 6MWT on d/c date. LTG Duration 7 treatments Assessment Summary Assessment Pt con't with some cognitive difficulty that affects BIG exercises and gait. He has trouble continue with an exercise once started despite doing well. He con't to have trouble assessing when he needs to adjust speed not to run into objects or have imbalance. This cognitive piece is a big part of pt's overall presentation. Physical Therapy Plan Frequency and Duration Frequency of Treatment 16 txs Plan of Care Start Date 05/21/21 Plan of Care End Date 06/04/21 Therapeutic Interventions Therapeutic Interventions Balance Training,Canalithic Repositioning,Gait Training, Home Exercise Program, Neuromuscular Re-education, Patient/Caregiver Education, Self-Care/Home Management, Sensory Integration, Therapeutic Activities, Therapeutic Exercises Modalities Cold Pack/Ice Massage,Hot Packs Next Visit Focus/Plan Next Note Type Treatment Note Next Visit Plan Con't BIG exercises, gait and balance
--- NOTE | 2021-06-02 15:40 | PT.OTN ---
Current Diagnoses Parkinson's disease (06/02/21) Physical Therapy Treatment Note PT-OP-A Visit Information Start: 04/28/21 10:19 Freq: Status: Active Protocol: Document 06/02/21 14:15 MB (Rec: 06/02/21 15:40 MB [id number]) Out-Patient Physical Therapy Visit Information Visit Information Visit Type Treatment Note Visit Note Medicare before KX Visit Start Time 14:15 Visit Stop Time 15:15 Total Visit Minutes 60 Visit Number 15 Precautions Precautions Fall risk, impulsivity, cognitive challenges PT-OP-B Current Condition Start: 04/28/21 10:19 Freq: Status: Active Protocol: Document 04/28/21 13:45 MB (Rec: 04/28/21 14:05 MB [id number]) Current Condition History of Current Condition Onset Date Two years ago Current Complaints Hand tremors, forgetfulness, imbalance, shuffling feet History of Current Condition Pt lives with , Esmer. They have a cat who is on her last legs. They live in a one story house with no stairs to enter. He has a cane and rollator. He has been using the rollator for 4 months d/t falls. HHPT told him to do this. Symptoms of PD have been hand tremors, shuffling feet, forgetfulness. He hopes to have LOUD therapy as well and is on a wait list . Pt reports that he does get light-headedness mid-mornings. He reports dehydration. He takes a ton of medicine for his colon to get it running d/ t constipation. He drinks a lot of water for [place]. Pt has moderate kidney disease. Pt reports a tendency to bump into things. He does not have any pain now. Treatment Goals Patient/Caregiver Goals Learn how to walk safely, not shuffle, better balance PT-OP-C Subjective Start: 04/28/21 10:19 Freq: Status: Active Protocol: Document 06/02/21 14:15 MB (Rec: 06/02/21 15:40 MB [id number]) OP-PT Subjective Patient Comments Patient Comments Pt states that he is feeling better today. 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 He has trouble controlling balance around curves to right or left and tends to hit right knuckles against the wall and hand english language learner tutor (abount 5 times with gait today), decreased arm swing with gait Gait with rollator into clinic and out of clinic: slower and pt less confident than when walking with PT beside him with gait belt and no AD for 6MWT PT-OP-H Neuro Start: 04/28/21 10:19 Freq: Status: Active Protocol: Document 04/28/21 13:45 MB (Rec: 04/28/21 15:24 MB [id number]) Coordination Evaluation Comments Coordination Comments Dysdiadochokinesia with B rapid supination and pronation and tapping one foot's toes over the other foot and back Vital Signs Comments Vital Signs Comments Orthostatic assessment with BP and HR in LUE: supine 130/88, 52; standing 133/94, 57; standing 1' 129/89, 56; standing 2' 130/94, 57. PT-OP-K Range of Motion Start: 04/28/21 10:19 Freq: Status: Active Protocol: Document 04/28/21 13:45 MB (Rec: 04/28/21 15:24 MB [id number]) Shoulder Goniometric Range of Motion Shoulder ROM Limitations Comments End-range shoulder flexion limited B PT-OP-M Strength Start: 04/28/21 10:19 Freq: Status: Active Protocol: Document 04/28/21 13:45 MB (Rec: 04/28/21 15:24 MB [id number]) Shoulder Strength Shoulder Manual Muscle Testing Bilateral Flexion 5 Normal Abduction (C5) 5 Normal Hip Strength Hip Manual Muscle Testing Bilateral Flexion (L2) 5 Normal Knee Strength Knee Manual Muscle Testing Bilateral Flexion (S2) 5 Normal Ankle/Foot Strength Ankle and Foot Manual Muscle Testing Bilateral Dorsiflexion (L4) 5 Normal Toe Strength Toe Manual Muscle Testing Left Great Toe Extension 4 Good Right Great Toe Extension 4 Good PT-OP-Q Treatments Start: 04/28/21 10:19 Freq: Status: Active Protocol: Document 06/02/21 14:15 MB (Rec: 06/02/21 15:40 MB [id number]) Therapeutic Exercises Sitting Exercises side to side Side bilateral Equipment Used Outside, teal chair with blue cushion, yoga mat under feet Reps/Minutes 5 reps alternating Comments Improvement today floor to ceiling Equipment Used Outside, teal chair with blue cushion, yoga mat doubled under feet Reps/Minutes 5 reps Sit to stands without UE support Side bilateral Equipment Used Outside, teal chair with blue cushion, yoga mat doubled under feet Reps/Minutes 15 reps Standing Exercises sideways rock and reach Side bilateral Equipment Used Yoga mat Reps/Minutes 10 reps each side alterating Comments Improvement today fwd rock and reach Side bilateral Equipment Used Outside looking into window, yoga mat under feet Reps/Minutes 10 reps x2 Comments Decreased arm swing and flexed posture with this exercise backward step Side bilateral Equipment Used Outside looking in window, yoga mat under feet Reps/Minutes 10 reps each side alternating Comments Ongoing cues for feet and hands sideways step Side bilateral Equipment Used Outside on yoga mat Reps/Minutes 10 reps each side alternating Comments Cues to look the direction he is stepping forward step Side bilateral Equipment Used Yoga mat, outside looking into window Reps/Minutes 10 reps each side Comments Improvement today Gait Training Gait Activity BIG walking Level of Assistance Superv, cues, CGA Surface Outside on pavement, grass, sidewalk Distance/Duration 30' Treatment Focus Keep up speed, no foot scuffing and no running into objects Comments Pt does better keeping up speed today with talking, changing surface of jose, sidewalk, increased challenges walking between cars, near signs on side walk and into hospital younger's market as well as on gravel and pt does better yet tends to hold back, stop or decrease arm swing. He is doing better stopping to assess and plan movements. Ascend and descend long set of steps inside building and outside clinic office better today and no stumbling. New trial of outside concrete steps with right rail is challenging for initiating stepping PT-OP-T Assessment and Plan Start: 04/28/21 10:19 Freq: Status: Active Protocol: Document 06/02/21 14:15 MB (Rec: 06/02/21 15:40 MB [id number]) Physical Therapy Assessment Rehab Potential Rehabilitation Potential Good Evaluation Complexity Number of Personal Factors/Comorbidities 1-2 Number of Body Systems Impaired 3 Clinical Presentation at Evaluation Evolving Impairments Impairments Balance,Coordination, Functional Activities, Functional Mobility,Gait, Posture,ROM Other Impairments Personal factors include tends to speak for patient, cognitive and psychosocial co- morbidities. Body systems involved include cognitive, psychosocial and neurological. His clinical presentation is progressing in setting of medical co-morbidities. Other Concerns Fall Risk Yes Goals 5 Operator Control Room Goal (LTG) Pt will perform WNLs on a standardized balance test to decrease fall risk by 06/04/21. 05/21/21: Pt's balance is much improved. LTG Duration 7 treatments 4 Operator Control Room Goal (LTG) Pt will perform BIG and functional exercises with I to improve amplitude of movement and balance by 06/04/21. 05/21/21: Pt has improved greatly with BIG exercises and is able to perform all standard exercises and some with challenges. LTG Duration 7 treatments 3 Residential Goal (LTG) Pt will perform 16 reps sit to stand without UE support in 30 sec to improve functional transfers by 06/04/21. 05/21/21: Did not formally test today d/t time LTG Duration 7 treatments 2 Residential Goal (LTG) Pt will gait train at least 1600 feet in 6 minutes without AD or running into objects with knuckles to decrease injury risk by 06/04/21. 05/21/21: Pt has much improvement with gait, less scuffing of feet and bumping into hill. Will do a 6MWT on d/c date. LTG Duration 7 treatments Assessment Summary Assessment Pt con't with some cognitive difficulty that affects BIG exercises and gait. He has trouble continue with an exercise once started despite doing well. He con't to have trouble assessing when he needs to adjust speed not to run into objects or have imbalance. This cognitive piece is a big part of pt's overall presentation. Physical Therapy Plan Frequency and Duration Frequency of Treatment 16 txs Plan of Care Start Date 05/21/21 Plan of Care End Date 06/04/21 Therapeutic Interventions Therapeutic Interventions Balance Training,Canalithic Repositioning,Gait Training, Home Exercise Program, Neuromuscular Re-education, Patient/Caregiver Education, Self-Care/Home Management, Sensory Integration, Therapeutic Activities, Therapeutic Exercises Modalities Cold Pack/Ice Massage,Hot Packs Next Visit Focus/Plan Next Note Type Treatment Note Next Visit Plan Con't BIG exercises, gait and balance
--- NOTE | 2021-06-02 15:43 | PT.OTN ---
Current Diagnoses Parkinson's disease (06/02/21) Physical Therapy Treatment Note PT-OP-A Visit Information Start: 04/28/21 10:19 Freq: Status: Active Protocol: Document 06/02/21 14:15 MB (Rec: 06/02/21 15:40 MB [id number]) Out-Patient Physical Therapy Visit Information Visit Information Visit Type Treatment Note Visit Note Medicare before KX Visit Start Time 14:15 Visit Stop Time 15:15 Total Visit Minutes 60 Visit Number 15 Precautions Precautions Fall risk, impulsivity, cognitive challenges PT-OP-B Current Condition Start: 04/28/21 10:19 Freq: Status: Active Protocol: Document 04/28/21 13:45 MB (Rec: 04/28/21 14:05 MB [id number]) Current Condition History of Current Condition Onset Date Two years ago Current Complaints Hand tremors, forgetfulness, imbalance, shuffling feet History of Current Condition Pt lives with , Esmer. They have a cat who is on her last legs. They live in a one story house with no stairs to enter. He has a cane and rollator. He has been using the rollator for 4 months d/t falls. HHPT told him to do this. Symptoms of PD have been hand tremors, shuffling feet, forgetfulness. He hopes to have LOUD therapy as well and is on a wait list . Pt reports that he does get light-headedness mid-mornings. He reports dehydration. He takes a ton of medicine for his colon to get it running d/ t constipation. He drinks a lot of water for [employer]. Pt has moderate kidney disease. Pt reports a tendency to bump into things. He does not have any pain now. Treatment Goals Patient/Caregiver Goals Learn how to walk safely, not shuffle, better balance PT-OP-C Subjective Start: 04/28/21 10:19 Freq: Status: Active Protocol: Document 06/02/21 14:15 MB (Rec: 06/02/21 15:40 MB [id number]) OP-PT Subjective Patient Comments Patient Comments Pt states that he is feeling better today. 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 He has trouble controlling balance around curves to right or left and tends to hit right knuckles against the wall and hand process machine operator (abount 5 times with gait today), decreased arm swing with gait Gait with rollator into clinic and out of clinic: slower and pt less confident than when walking with PT beside him with gait belt and no AD for 6MWT PT-OP-H Neuro Start: 04/28/21 10:19 Freq: Status: Active Protocol: Document 04/28/21 13:45 MB (Rec: 04/28/21 15:24 MB [id number]) Coordination Evaluation Comments Coordination Comments Dysdiadochokinesia with B rapid supination and pronation and tapping one foot's toes over the other foot and back Vital Signs Comments Vital Signs Comments Orthostatic assessment with BP and HR in LUE: supine 130/88, 52; standing 133/94, 57; standing 1' 129/89, 56; standing 2' 130/94, 57. PT-OP-K Range of Motion Start: 04/28/21 10:19 Freq: Status: Active Protocol: Document 04/28/21 13:45 MB (Rec: 04/28/21 15:24 MB [id number]) Shoulder Goniometric Range of Motion Shoulder ROM Limitations Comments End-range shoulder flexion limited B PT-OP-M Strength Start: 04/28/21 10:19 Freq: Status: Active Protocol: Document 04/28/21 13:45 MB (Rec: 04/28/21 15:24 MB [id number]) Shoulder Strength Shoulder Manual Muscle Testing Bilateral Flexion 5 Normal Abduction (C5) 5 Normal Hip Strength Hip Manual Muscle Testing Bilateral Flexion (L2) 5 Normal Knee Strength Knee Manual Muscle Testing Bilateral Flexion (S2) 5 Normal Ankle/Foot Strength Ankle and Foot Manual Muscle Testing Bilateral Dorsiflexion (L4) 5 Normal Toe Strength Toe Manual Muscle Testing Left Great Toe Extension 4 Good Right Great Toe Extension 4 Good PT-OP-Q Treatments Start: 04/28/21 10:19 Freq: Status: Active Protocol: Document 06/02/21 14:15 MB (Rec: 06/02/21 15:40 MB [id number]) Therapeutic Exercises Sitting Exercises side to side Side bilateral Equipment Used Outside, teal chair with blue cushion, yoga mat under feet Reps/Minutes 5 reps alternating Comments Improvement today floor to ceiling Equipment Used Outside, teal chair with blue cushion, yoga mat doubled under feet Reps/Minutes 5 reps Sit to stands without UE support Side bilateral Equipment Used Outside, teal chair with blue cushion, yoga mat doubled under feet Reps/Minutes 15 reps Standing Exercises sideways rock and reach Side bilateral Equipment Used Yoga mat Reps/Minutes 10 reps each side alterating Comments Improvement today fwd rock and reach Side bilateral Equipment Used Outside looking into window, yoga mat under feet Reps/Minutes 10 reps x2 Comments Decreased arm swing and flexed posture with this exercise backward step Side bilateral Equipment Used Outside looking in window, yoga mat under feet Reps/Minutes 10 reps each side alternating Comments Ongoing cues for feet and hands sideways step Side bilateral Equipment Used Outside on yoga mat Reps/Minutes 10 reps each side alternating Comments Cues to look the direction he is stepping forward step Side bilateral Equipment Used Yoga mat, outside looking into window Reps/Minutes 10 reps each side Comments Improvement today Gait Training Gait Activity BIG walking Level of Assistance Superv, cues, CGA Surface Outside on pavement, grass, sidewalk Distance/Duration 30' Treatment Focus Keep up speed, no foot scuffing and no running into objects Comments Pt does better keeping up speed today with talking, changing surface of jose, sidewalk, increased challenges walking between cars, near signs on side walk and into hospital [employer] as well as on gravel and pt does better yet tends to hold back, stop or decrease arm swing. He is doing better stopping to assess and plan movements. Ascend and descend long set of steps inside building and outside clinic office better today and no stumbling. New trial of outside concrete steps with right rail is challenging for initiating stepping PT-OP-T Assessment and Plan Start: 04/28/21 10:19 Freq: Status: Active Protocol: Document 06/02/21 14:15 MB (Rec: 06/02/21 15:40 MB [id number]) Physical Therapy Assessment Rehab Potential Rehabilitation Potential Good Evaluation Complexity Number of Personal Factors/Comorbidities 1-2 Number of Body Systems Impaired 3 Clinical Presentation at Evaluation Evolving Impairments Impairments Balance,Coordination, Functional Activities, Functional Mobility,Gait, Posture,ROM Other Impairments Personal factors include tends to speak for patient, cognitive and psychosocial co- morbidities. Body systems involved include cognitive, psychosocial and neurological. His clinical presentation is progressing in setting of medical co-morbidities. Other Concerns Fall Risk Yes Goals 5 Otolaryngology Rep Goal (LTG) Pt will perform WNLs on a standardized balance test to decrease fall risk by 06/04/21. 05/21/21: Pt's balance is much improved. LTG Duration 7 treatments 4 Otolaryngology Rep Goal (LTG) Pt will perform BIG and functional exercises with I to improve amplitude of movement and balance by 06/04/21. 05/21/21: Pt has improved greatly with BIG exercises and is able to perform all standard exercises and some with challenges. LTG Duration 7 treatments 3 Half-Way Goal (LTG) Pt will perform 16 reps sit to stand without UE support in 30 sec to improve functional transfers by 06/04/21. 05/21/21: Did not formally test today d/t time LTG Duration 7 treatments 2 Half-Way Goal (LTG) Pt will gait train at least 1600 feet in 6 minutes without AD or running into objects with knuckles to decrease injury risk by 06/04/21. 05/21/21: Pt has much improvement with gait, less scuffing of feet and bumping into hill. Will do a 6MWT on d/c date. LTG Duration 7 treatments Assessment Summary Assessment Overall improvement in gait outside with conversation today. He con't with hesitancy with walking near other people and he is quicker to stop to assess with walking downhill or when his speed picks up today. Overall improvement. He does report some leg weakness overall and PT ed pt and that he can come for OPPT for this in the future if he likes. Physical Therapy Plan Frequency and Duration Frequency of Treatment 16 txs Plan of Care Start Date 05/21/21 Plan of Care End Date 06/04/21 Therapeutic Interventions Therapeutic Interventions Balance Training,Canalithic Repositioning,Gait Training, Home Exercise Program, Neuromuscular Re-education, Patient/Caregiver Education, Self-Care/Home Management, Sensory Integration, Therapeutic Activities, Therapeutic Exercises Modalities Cold Pack/Ice Massage,Hot Packs Next Visit Focus/Plan Next Note Type Discharge Summary
--- NOTE | 2021-06-04 15:33 | PT.OTN ---
Current Diagnoses Parkinson's disease (06/04/21) Physical Therapy Treatment Note PT-OP-A Visit Information Start: 04/28/21 10:19 Freq: Status: Active Protocol: Document 06/04/21 14:15 MB (Rec: 06/04/21 15:18 MB [id number]) Out-Patient Physical Therapy Visit Information Visit Information Visit Type Treatment Note Visit Note Medicare before KX Visit Start Time 14:15 Visit Stop Time 15:10 Total Visit Minutes 55 Visit Number 16 Precautions Precautions Fall risk, impulsivity, cognitive challenges PT-OP-B Current Condition Start: 04/28/21 10:19 Freq: Status: Active Protocol: Document 04/28/21 13:45 MB (Rec: 04/28/21 14:05 MB [id number]) Current Condition History of Current Condition Onset Date Two years ago Current Complaints Hand tremors, forgetfulness, imbalance, shuffling feet History of Current Condition Pt lives with , Esmer. They have a cat who is on her last legs. They live in a one story house with no stairs to enter. He has a cane and rollator. He has been using the rollator for 4 months d/t falls. HHPT told him to do this. Symptoms of PD have been hand tremors, shuffling feet, forgetfulness. He hopes to have [facility] therapy as well and is on a wait list . Pt reports that he does get light-headedness mid-mornings. He reports dehydration. He takes a ton of medicine for his colon to get it running d/ t constipation. He drinks a lot of water for [place]. Pt has moderate kidney disease. Pt reports a tendency to bump into things. He does not have any pain now. Treatment Goals Patient/Caregiver Goals Learn how to walk safely, not shuffle, better balance PT-OP-C Subjective Start: 04/28/21 10:19 Freq: Status: Active Protocol: Document 06/04/21 14:15 MB (Rec: 06/04/21 15:18 MB [id number]) OP-PT Subjective Patient Comments Patient Comments Pt asks for another copy of BIG exercises. Pt states that his balance is better since starting BIG. He is not using the walker. He is going for walks outside without the walker. The exercise program in PT sessions and with the homework helper DVD are really helpful. 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 (abount 5 times with gait today), decreased arm swing with gait Gait with rollator into clinic and out of clinic: slower and pt less confident than when walking with PT beside him with gait belt and no AD for 6MWT PT-OP-H Neuro Start: 04/28/21 10:19 Freq: Status: Active Protocol: Document 04/28/21 13:45 MB (Rec: 04/28/21 15:24 MB [id number]) Coordination Evaluation Comments Coordination Comments Dysdiadochokinesia with B rapid supination and pronation and tapping one foot's toes over the other foot and back Vital Signs Comments Vital Signs Comments Orthostatic assessment with BP and HR in LUE: supine 130/88, 52; standing 133/94, 57; standing 1' 129/89, 56; standing 2' 130/94, 57. PT-OP-K Range of Motion Start: 04/28/21 10:19 Freq: Status: Active Protocol: Document 04/28/21 13:45 MB (Rec: 04/28/21 15:24 MB [id number]) Shoulder Goniometric Range of Motion Shoulder ROM Limitations Comments End-range shoulder flexion limited B PT-OP-M Strength Start: 04/28/21 10:19 Freq: Status: Active Protocol: Document 04/28/21 13:45 MB (Rec: 04/28/21 15:24 MB [id number]) Shoulder Strength Shoulder Manual Muscle Testing Bilateral Flexion 5 Normal Abduction (C5) 5 Normal Hip Strength Hip Manual Muscle Testing Bilateral Flexion (L2) 5 Normal Knee Strength Knee Manual Muscle Testing Bilateral Flexion (S2) 5 Normal Ankle/Foot Strength Ankle and Foot Manual Muscle Testing Bilateral Dorsiflexion (L4) 5 Normal Toe Strength Toe Manual Muscle Testing Left Great Toe Extension 4 Good Right Great Toe Extension 4 Good PT-OP-Q Treatments Start: 04/28/21 10:19 Freq: Status: Active Protocol: Document 06/04/21 14:15 MB (Rec: 06/04/21 15:33 MB [id number]) Therapeutic Exercises Sitting Exercises side to side Side bilateral Equipment Used Inside, teal chair Reps/Minutes 5 reps alternating floor to ceiling Equipment Used Inside, teal chair Reps/Minutes 5 reps Comments Cannot reach the floor today Sit to stands without UE support Side bilateral Equipment Used Inside, teal chair Reps/Minutes 10 reps Standing Exercises sideways rock and reach Side bilateral Reps/Minutes 5 reps alternating Comments Inside today on carpet fwd rock and reach Side bilateral Reps/Minutes 10 reps Comments Inside on carpet backward step Side bilateral Comments 10 reps alternating, on carpet today sideways step Side bilateral Reps/Minutes 10 reps alternating Comments Inside on carpet today forward step Side bilateral Reps/Minutes 10 reps alternating Comments Inside on carpet, looking in mirror Gait Training Gait Activity BIG walking Level of Assistance Superv Surface Outside on pavement and curb Distance/Duration 15' Treatment Focus No scuffing, BIG arms, keep up speed Comments Pt seems side tracked today, thinking about new exercise watch given to him by son and pictures, this tends to slow his gait 6MWT Comments Improvements with this and no scuffing or running into hill today. Performed counterclockwise direction. See goals for comments PT-OP-T Assessment and Plan Start: 04/28/21 10:19 Freq: Status: Active Protocol: Document 06/04/21 14:15 MB (Rec: 06/04/21 15:18 MB [id number]) Physical Therapy Assessment Goals 5 Longterm Goal (LTG) Pt will perform WNLs on a standardized balance test to decrease fall risk by 06/04/21. 06/04/21: No running into objects today with gait and gait is improved. LTG Duration Met 4 Longterm Goal (LTG) Pt will perform BIG and functional exercises with I to improve amplitude of movement and balance by 06/04/21. 06/04/21: Pt has progressed to BIG exercises in the clinic with alternating and balance challenges. He is performing BIG exercises with DVD about once a day. He has not been walking as much as he should. LTG Duration Met 3 Asphalt Paving Foreman Goal (LTG) Pt will perform 16 reps sit to stand without UE support in 30 sec to improve functional transfers by 06/04/21. 06/04/21: Pt performs 12 reps sit to stand from shorter seat today than when first tested. He can then perform BIG sit to stands with forward reach first. LTG Duration Partially Met 2 Longterm Goal (LTG) Pt will gait train at least 1600 feet in 6 minutes without AD or running into objects with knuckles to decrease injury risk by 06/04/21. 06/04/21: Goat met: pt gait trains 1600 feet in 6 minutes without bumping his arms into the wall or other objects. He does not scuff his feet at all today. He has to negotiate or slow down at least 3x for other therapists or pts who get in line of gait. LTG Duration Met Assessment Summary Assessment Pt has met gait distance, HEP and balance goals since starting PT. He did not make sit to stand goal and PT believes this is due to using lower seat today. He has had some bad days since starting PT where he has had imbalance and worsening cognition and pt and state that this can happen d/t affect d/t bipolar and if he is dehydrated. Overall, he has progressed very well with PT, is not using rollator, is walking outside on his own some and has progressed with BIG exercises. He will do well if he con't with his BIG exercises and walking at home but d/t decreased carryover everyday with these during BIG course and that does not exercise with patient, PT is concerned about carryover after d/c. He may benefit from a regular PT course for leg strengthening per his complaints about trouble getting on and off the ground with gardening. He is on the waiting list for [facility] and this will be a good way for him to be motivated, get out and reminded to stay on home program. Overall, pt does seem a bit discouraged that he is no longer doing things that he used to such as gardening, driving and restoration. PT would like to see him getting back to some of these activities and it will require ongoing daily exercise, walking, encouragement and a driving test. Overall, PT's impression is that pt's is not on board with this. Recommend follow-up with doctor about these things.
== END 2021-06-04 16:11 | disposition home or self-care (01) ==
LOC: PHYS 14:15
PROVIDERS: PCP Internal Medicine; Referring Provider Internal Medicine; Visit Provider Internal Medicine
DX: G20 Parkinson's disease (principal)
CPT/HCPCS: 97110; 97116; 97161; 97530

== ENCOUNTER 2021-07-27 17:15 | Emergency (ER) | payer MEDICARE, OTHER, SELFPAY ==
[2021-07-27 17:35] VITALS: BP 141/67; PULSE 57; RESP 17; TEMP 37; O2SAT 99; BMI 24.3
[2021-07-27 18:38] LABS: COVID19 -Nasal RAPID Negative (Negative)
--- NOTE | 2021-07-27 19:26 | DI.RAD.S_ITS ---
PROCEDURE: XR CHEST 2V INDICATIONS: ? PNA, Crackles on ausculatation TECHNIQUE: 2 views of the chest were acquired. COMPARISON: None. FINDINGS: Surgical changes and devices: None. Lungs and pleura: Lungs are clear. No pleural effusions or pneumothorax. Mediastinum: Mediastinal contours are normal. Heart size is normal. Bones and chest wall: No suspicious bony abnormalities. Soft tissues appear unremarkable. IMPRESSION: No acute disease. Dictated by: Tunde Nguyen M.D. on 07/27/2021 at 20:08 Approved by: Tunde Nguyen M.D. on 07/27/2021 at 20:08
--- NOTE | 2021-07-27 19:45 | ED_ITS ---
HPI - URI/Sore Throat <Martha Lemus PA-C - Last Filed: 07/27/21 20:36> General Chief Complaint: Upper Respiratory Symptoms Stated Complaint: Covid symptoms- Wheezing, cough, sore throat Time Seen by Provider: 07/27/21 18:03 Source: patient Mode of arrival: Ambulatory History of Present Illness HPI Narrative: 70-year-old male with past medical history Parkinson's disease presents to the ED with 4 days of rattling cough, shortness of breath. Patient denies fever, chills, chest pain, nausea, vomiting, abdominal pain, lightheadedness, dizziness, syncope. Patient describes the cough as a rattling cough, but is not productive. Patient tested negative for COVID-19 today. Patient is vaccinated for COVID-19. Related Data Home Medications Medication Instructions Recorded Confirmed carbamazepine 200 mg tablet 200 mg PO BID tab 11/08/18 09/24/20 lamotrigine 200 mg tablet 200 mg PO BID 11/08/18 09/24/20 levothyroxine 50 mcg capsule 50 mcg PO DAILY 11/08/18 09/24/20 lithium carbonate 150 mg capsule 150 mg PO 5XD cap 11/08/18 09/24/20 quetiapine 50 mg tablet 100 mg PO BID 11/08/18 09/24/20 aspirin 325 mg tablet 325 mg PO DAILY 09/24/20 09/24/20 desonide 0.05 % topical cream 1 applic TOPICAL DAILY 09/24/20 09/24/20 loratadine 10 mg tablet 10 mg PO DAILY 09/24/20 09/24/20 (Allerclear) propranolol 10 mg tablet 10 mg PO QID 09/24/20 09/24/20 Previous Rx's Medication Instructions Recorded azithromycin 250 mg tablet 250 mg PO DAILY 4 Days tab 07/27/21 Allergies Allergy/AdvReac Type Severity Reaction Status Date / Time No Known Drug Allergies Allergy Verified 07/27/21 17:37 Review of Systems <Martha Lemus PA-C - Last Filed: 07/27/21 20:36> Constitutional Constitutional: Denies chills, Denies fatigue, Denies fever(s), Denies frequent falls, Denies lethargy and Denies weakness Eyes Eyes: Denies change in vision, Denies eye discharge, Denies irritation and Denies loss of vision ENT Ears, Nose, Mouth, and Throat: Denies change in voice, Denies dizziness, Denies neck pain, Denies sore throat and Denies throat swelling Cardiovascular Cardiovascular: Denies chest pain, Denies irregular heart rhythm, Denies lightheadedness, Denies palpitations, Reports dyspnea, Denies dyspnea on exertion and Denies orthopnea Respiratory Respiratory: Reports cough, Reports dyspnea, Denies dyspnea on exertion and Denies wheezing Gastrointestinal Gastrointestinal: Denies abdominal pain, Denies change in bowel habits, Denies diarrhea, Denies nausea and Denies vomiting Musculoskeletal Musculoskeletal: Denies neck pain and Denies numbness Integumentary/Breasts Skin/Breast: Denies pruritus, Denies erythema, Denies rash and Denies wounds Neurologic Neurologic: Denies behavioral changes, Denies confusion, Denies dizziness, Denies frequent falls, Denies loss of vision, Denies numbness and Denies weakness Psychiatric Psychiatric: Denies anxiety, Denies behavioral changes, Denies confusion, Denies depression, Denies homicidal ideation and Denies suicidal ideation Endocrine Endocrine: Denies fatigue, Denies flushing and Denies palpitations Hematologic/Lymphatic Hematologic/Lymphatic: Denies easy bruising Allergic/Immunologic Allergic/Immunologic: Denies urticaria, Denies throat swelling and Denies wheezing Patient History <Martha Lemus PA-C - Last Filed: 07/27/21 20:36> Social History household members: spouse Smoking Status: Never smoker Smoking Status: Never smoker alcohol intake frequency: other Substance Use Type: does not use Exam <Martha Lemus PA-C - Last Filed: 07/27/21 20:36> Initial Vital Signs Initial Vital Signs: Vital Signs Temperature 98.6 F 07/27/21 17:35 Pulse Rate 57 L 07/27/21 17:35 Respiratory Rate 17 07/27/21 17:35 Blood Pressure 141/67 H 07/27/21 17:35 Pulse Oximetry 99 07/27/21 17:35 Const General: cooperative HENMT Head: normocephalic and atraumatic Ears: external ears normal and TM's normal bilaterally Nose: external nose normal and No nasal discharge Face and sinus: sinuses nontender, face symmetric, no sinus tenderness and No dry mucous membranes Mouth: oral mucosae normal and moist mucous membranes Teeth and gingiva: dentition normal Throat: tonsils normal and uvula midline Eyes General: appearance normal, both eyes and all related structures Eyelids: eyelids normal Conjunctivae: conjunctivae normal Sclera: sclerae normal Pupils: PERRL EOM: EOM intact bilaterally Neck Neck: normal visual inspection, trachea midline, No lymphadenopathy, No midline deformity and No JVD Lymphatic: No lymphedema Chest Chest: normal inspection of the chest Resp Effort & Inspection: normal respiratory effort, able to speak in complete sentences, no respiratory distress and no use of accessory muscles Other: Coarse crackles bilaterally. No wheezes. Good air entry an air movement. Cardio Rate: regular rate Rhythm: regular rhythm Heart Sounds: no click, no gallops, no murmurs and no rubs Pulses: normal peripheral pulses GI Inspection: non-distended Palpation: soft, no hepatosplenomegaly, No guarding, No pulsatile mass and No tender Auscultation: normal bowel sounds Back/Spine/Pelvis Back: No CVA tenderness Cervical Spine: cervical ROM normal and No pain with cervical ROM Thoracic/Lumbar Spine: thoracic and lumbar spine normal to inspection Skin General: no rashes or lesions noted, No jaundice and No petechiae Neuro General: patient alert, patient oriented x3, gait normal and no focal motor deficits Speech: speech normal Extrem General: full ROM, no clubbing, cyanosis or edema, no pedal edema and no calf tenderness Psych Appearance: well kempt Mental Status: mental status grossly normal Attitude: cooperative Thought Content: normal and suicidality Judgment: judgment good <Yaniv Hall DO - Last Filed: 07/28/21 00:29> Initial Vital Signs Initial Vital Signs: Vital Signs Temperature 98.6 F 07/27/21 17:35 Pulse Rate 57 L 07/27/21 17:35 Respiratory Rate 17 07/27/21 17:35 Blood Pressure 141/67 H 07/27/21 17:35 Pulse Oximetry 99 07/27/21 17:35 Course <Martha Lemus PA-C - Last Filed: 07/27/21 20:36> Course Course Narrative: Labs within normal limits. Chest x-ray negative for pneumonia. However, patient's symptoms and physical exam consistent with pneumonia. Discussed with patient, patient verbalizes understanding, we agreed to start azithromycin. ED return precautions discussed with patient. Orders Ordered: ED Orders 07/27/21 17:35 COVID19 -Nasal swab/Pre-Proc Stat 07/27/21 19:26 XR chest 2V Stat 07/27/21 19:47 Complete Blood Count AUTO DIFF Stat Comprehensive Metabolic Panel Stat Procalcitonin Stat Discontinued Medications Albuterol/Ipratropium (Albuterol/Ipratropium 3 Ml Ampul) 3 ml INH NOW ONE Stop: 07/27/21 20:14 Last Admin: 07/27/21 20:28 Dose: Not Given Documented by: XIANG Azithromycin (Azithromycin 250 Mg Tablet) 500 mg PO NOW ONE Stop: 07/27/21 20:25 Last Admin: 07/27/21 20:30 Dose: 500 mg Documented by: XIANG Vital Signs Vital signs: Vital Signs - 8 hr 07/27/21 17:35 07/27/21 20:56 Temperature 98.6 F 97.9 F Pulse Rate 57 L 51 L Respiratory Rate 17 20 Blood Pressure 141/67 H 139/67 Pulse Oximetry 99 100 <Yaniv Hall DO - Last Filed: 07/28/21 00:29> Orders Ordered: ED Orders 07/27/21 17:35 COVID19 -Nasal swab/Pre-Proc Stat 07/27/21 19:26 XR chest 2V Stat 07/27/21 19:47 Complete Blood Count AUTO DIFF Stat Comprehensive Metabolic Panel Stat Procalcitonin Stat Discontinued Medications Albuterol/Ipratropium (Albuterol/Ipratropium 3 Ml Ampul) 3 ml INH NOW ONE Stop: 07/27/21 20:14 Last Admin: 07/27/21 20:28 Dose: Not Given Documented by: XIANG Azithromycin (Azithromycin 250 Mg Tablet) 500 mg PO NOW ONE Stop: 07/27/21 20:25 Last Admin: 07/27/21 20:30 Dose: 500 mg Documented by: XIANG Vital Signs Vital signs: Vital Signs - 8 hr 07/27/21 17:35 07/27/21 20:56 Temperature 98.6 F 97.9 F Pulse Rate 57 L 51 L Respiratory Rate 17 20 Blood Pressure 141/67 H 139/67 Pulse Oximetry 99 100 MDM - URI/Sore Throat <Martha Lemus PA-C - Last Filed: 07/27/21 20:36> Lab Data Lab results narrative: Labs within normal limits. Result diagrams: 07/27/21 19:47 07/27/21 19:47 Labs: Lab Results 07/27/21 07/27/21 07/27/21 Range/Units 17:35 19:47 19:47 WBC 9.5 (4.5-11.0) X10^3/uL RBC 4.35 L (4.5-5.9) X10^6/uL Hgb 14.1 (13.5-17.5) g/dL Hct 43.0 (41-53) % MCV 98.8 (80-100) fL MCH 32.4 (26-34) PG MCHC 32.8 (30-36) % RDW 12.5 (11.6-14.8) % Plt Count 218 (150-400) X10^3/uL Neut % (Auto) 72.5 (50-75) % Lymph % (Auto) 17.2 L (25-40) % [place] % (Auto) 7.0 (3-14) % Eos % (Auto) 2.9 (2-4) % Baso % (Auto) 0.4 (0-2) % Neut # (Auto) 6900 (4477-3269) /uL Lymph # (Auto) 1600 (4529-3651) /uL [place] # (Auto) 700 (0-900) /uL Eos # (Auto) 300 (0-450) /uL Baso # (Auto) 0 (0-100) /uL Sodium 143 (137-145) mmol/L Potassium 4.6 (3.4-5.1) mmol/L Chloride 106 (98-107) mmol/L Carbon Dioxide 29 (22-32) mmol/L BUN 19 (9-20) mg/dL Creatinine 1.40 H (0.66-1.25) mg/dL Estimated GFR 50.4 L (>60) mL/min BUN/Creatinine Ratio 13.6 (6-22) Glucose 104 (80-110) mg/dL Calcium 10.0 (8.4-10.2) mg/dL Total Bilirubin 0.4 (0.2-1.3) mg/dL AST 20 (17-59) IU/L ALT < 4 (<50) IU/L Alkaline Phosphatase 97 (38-126) U/L Total Protein 7.4 (6.3-8.2) g/dL Albumin 4.5 (3.5-5.0) g/dL Globulin 2.9 (1.7-4.1) g/dL Albumin/Globulin Ratio 1.6 (1.0-2.8) Procalcitonin 0.06 (<0.5) ng/mL SARS-CoV-2 (PCR) Negative (Negative) Imaging Data Chest x-ray: Radiologist's Impression: PROCEDURE:? XR CHEST 2V ? INDICATIONS:? ? PNA, Crackles on ausculatation ? TECHNIQUE:? 2 views of the chest were acquired.? ? COMPARISON:? None. ? FINDINGS:? ? Surgical changes and devices:? None.? ? Lungs and pleura:? Lungs are clear.? No pleural effusions or pneumothorax.? ? Mediastinum:? Mediastinal contours are normal.? Heart size is normal.? ? Bones and chest wall:? No suspicious bony abnormalities.? Soft tissues appear unremarkable.? ? IMPRESSION:? No acute disease. ? ? Dictated by: Tunde Nguyen M.D. on 07/27/2021 at 20:08 ? ? Approved by: Tunde Nguyen M.D. on 07/27/2021 at 20:08 ? MDM Narrative Medical decision making narrative: 70-year-old male with past medical history Parkinson's disease presents to the ED with 4 days of rattling cough, shortness of breath. Concern for URI versus pneumonia. Will order labs, procalcitonin, chest x-ray. Will reassess. <Yaniv Hall DO - Last Filed: 07/28/21 00:29> Lab Data Labs: Lab Results 07/27/21 07/27/21 07/27/21 Range/Units 17:35 19:47 19:47 WBC 9.5 (4.5-11.0) X10^3/uL RBC 4.35 L (4.5-5.9) X10^6/uL Hgb 14.1 (13.5-17.5) g/dL Hct 43.0 (41-53) % MCV 98.8 (80-100) fL MCH 32.4 (26-34) PG MCHC 32.8 (30-36) % RDW 12.5 (11.6-14.8) % Plt Count 218 (150-400) X10^3/uL Neut % (Auto) 72.5 (50-75) % Lymph % (Auto) 17.2 L (25-40) % [place] % (Auto) 7.0 (3-14) % Eos % (Auto) 2.9 (2-4) % Baso % (Auto) 0.4 (0-2) % Neut # (Auto) 6900 (4186-1971) /uL Lymph # (Auto) 1600 (0934-0146) /uL [place] # (Auto) 700 (0-900) /uL Eos # (Auto) 300 (0-450) /uL Baso # (Auto) 0 (0-100) /uL Sodium 143 (137-145) mmol/L Potassium 4.6 (3.4-5.1) mmol/L Chloride 106 (98-107) mmol/L Carbon Dioxide 29 (22-32) mmol/L BUN 19 (9-20) mg/dL Creatinine 1.40 H (0.66-1.25) mg/dL Estimated GFR 50.4 L (>60) mL/min BUN/Creatinine Ratio 13.6 (6-22) Glucose 104 (80-110) mg/dL Calcium 10.0 (8.4-10.2) mg/dL Total Bilirubin 0.4 (0.2-1.3) mg/dL AST 20 (17-59) IU/L ALT < 4 (<50) IU/L Alkaline Phosphatase 97 (38-126) U/L Total Protein 7.4 (6.3-8.2) g/dL Albumin 4.5 (3.5-5.0) g/dL Globulin 2.9 (1.7-4.1) g/dL Albumin/Globulin Ratio 1.6 (1.0-2.8) Procalcitonin 0.06 (<0.5) ng/mL SARS-CoV-2 (PCR) Negative (Negative) Discharge Plan Departure Patient Disposition: Home Clinical Impression: Pneumonia Qualifiers: Pneumonia type: due to unspecified organism Laterality: unspecified laterality Lung location: unspecified part of lung Qualified Code(s): J18.9 - Pneumonia, unspecified organism Instructions: DI for Pneumonia -- Adult Activity Restrictions/Additional Instructions: You were evaluated in the ED today for shortness of breath, rattling cough. While your chest x-ray did not show evidence of pneumonia, your symptoms are consistent with it. Please complete your course of the antibiotic azithromycin. Return to the ED if you are experiencing worsening of your symptoms including worsening shortness of breath, fever, chills, chest pain. Prescriptions: New azithromycin 250 mg tablet 250 mg PO DAILY 4 Days RF: 0 No Action lamotrigine 200 mg tablet 200 mg PO BID RF: 0 lithium carbonate 150 mg capsule 150 mg PO 5XD RF: 0 carbamazepine 200 mg tablet 200 mg PO BID RF: 0 quetiapine 50 mg tablet 100 mg PO BID RF: 0 levothyroxine 50 mcg capsule 50 mcg PO DAILY RF: 0 desonide 0.05 % Cream 1 applic TOPICAL DAILY RF: 0 aspirin 325 mg Tablet 325 mg PO DAILY RF: 0 propranolol 10 mg Tablet 10 mg PO QID RF: 0 loratadine [Allerclear] 10 mg Tablet 10 mg PO DAILY RF: 0 Referrals: Og Larios MD [Primary Care Provider] - <Yaniv Hall, - Last Filed: 07/28/21 00:29> Cosign ED Attending Cosignature Attestation: Dr Hall Co-Sign Statement: I was available for consultation during this patient's emergency department visit. This chart is signed by myself for administrative purposes only. I did not have direct contact with this patient during this visit. They were seen independently by the APC.
[2021-07-27 20:12] LABS: Albumin 4.5 g/dL (3.5-5.0); Albumin Globulin Ratio 1.6 (1.0-2.8); Alkaline Phosphatase 97 U/L (38-126); Aspartate Aminotransferase 20 IU/L (17-59); BUN Creatinine Ratio 13.6 (6-22); Bilirubin Total 0.4 mg/dL (0.2-1.3); Blood Urea Nitrogen 19 mg/dL (9-20); Carbon Dioxide 29 mmol/L (22-32); Chloride 106 mmol/L (98-107); Estimated Glomerular Filt Rate 50.4 mL/min (>60); Globulin 2.9 g/dL (1.7-4.1); Glucose 104 mg/dL (80-110); HEMOLYSIS < 15 (0-50); Potassium 4.6 mmol/L (3.4-5.1); Sodium 143 mmol/L (137-145); Total Protein 7.4 g/dL (6.3-8.2)
[2021-07-27 20:13] LABS: Add Manual Diff / Slide Review NO; Alanine Aminotransferase < 4 IU/L (<50); Basophils Absolute Auto 0 /uL (0-100); Basophils Percent Auto 0.4 % (0-2); Eosinophils Absolute Auto 300 /uL (0-450); Eosinophils Percent Auto 2.9 % (2-4); Hemoglobin 14.1 g/dL (13.5-17.5); Lymphocytes Absolute Auto 1600 /uL (1100-4500); Lymphocytes Percent Auto 17.2 % (25-40); Mean Corpuscular HGB Conc 32.8 % (30-36); Mean Corpuscular Hemoglobin 32.4 PG (26-34); Mean Corpuscular Volume 98.8 fL (80-100); Monocytes Absolute Auto 700 /uL (0-900); Neutrophils Absolute Auto 6900 /uL (1500-7000); Neutrophils Percent Auto 72.5 % (50-75); Platelet Count 218 X10^3/uL (150-400); Red Blood Cell Count 4.35 X10^6/uL (4.5-5.9); Red Cell Distribution Width 12.5 % (11.6-14.8); White Blood Cell Count 9.5 X10^3/uL (4.5-11.0)
[2021-07-27 20:29] LABS: Procalcitonin 0.06 ng/mL (<0.5)
[2021-07-27] MEDS: AZITHROMYCIN 250 MG TABLET 500 MG PO (20:30)
[2021-07-27 20:56] VITALS: BP 139/67; PULSE 51; RESP 20; TEMP 36.6; O2SAT 100
== END 2021-07-27 20:57 | disposition home or self-care (01) ==
PROVIDERS: Emergency Medicine; Emergency Provider Student in an Organized Health Care Education/Training Program; PCP Internal Medicine
DX: J18.9 Pneumonia, unspecified organism (principal); R06.02 Shortness of breath; Z20.822 Contact with and (suspected) exposure to COVID-19
CPT/HCPCS: 36415; 71046; 80053; 84145; 85025; 87635; 99283; C9803

== ENCOUNTER → 2021-08-21 12:27 | Outpatient (CLI) | payer MEDICARE, OTHER, SELFPAY ==
[2021-08-21] MEDS: COVID-19 VACC #3, MRNA(MOD) 50 MCG/0.25 ML VIAL IM (12:32)
== END ==
PROVIDERS: PCP Internal Medicine; Visit Provider Internal Medicine
DX: Z23 Encounter for immunization (principal)
CPT/HCPCS: 0013A; 91301

== ENCOUNTER 2021-09-07 19:46 | Emergency (ER) | payer MEDICARE, OTHER, SELFPAY ==
[2021-09-07 20:12] VITALS: BP 138/78; PULSE 55; RESP 18; TEMP 36.7; O2SAT 99; BMI 24.9
--- NOTE | 2021-09-07 20:19 | DI.RAD.S_ITS ---
PROCEDURE: XR FOREARM LT 2V, 09/07/2021, 20:15 XR WRIST LT MIN 3V, 09/07/2021, 20:15 INDICATIONS: Fell, swelling to L FA, pain to wrist TECHNIQUE: 2 views of the forearm were acquired. COMPARISON: None. FINDINGS: Bones: The distal radius has a nondisplaced oblique fracture extending from the radial surface to the articular surface. No other fractures identified. There are degenerative changes of the 1st carpometacarpal joint. Soft tissues: No suspicious soft tissue calcifications or masses. IMPRESSION: Nondisplaced fracture of the distal radius with articular surface involvement. Dictated by: Darron Hsieh M.D. on 09/07/2021 at 20:47 Approved by: Darron Hsieh M.D. on 09/07/2021 at 20:50
[2021-09-07 22:29] VITALS: BP 141/80; PULSE 56; O2SAT 100
--- NOTE | 2021-09-08 06:07 | ED_ITS ---
HPI - Extremity Injury (Upper) General Chief Complaint: Extremity Injury, Upper Stated Complaint: LEFT WRIST INJURY Time Seen by Provider: 09/07/21 21:59 Source: patient Mode of arrival: Ambulatory Limitations: no limitations History of Present Illness HPI narrative: 70-year-old male nonsmoker with history of Parkinson's presents with his in the chief complaint of left wrist injury suffered earlier today. He was working in the [employer] and pulling on a metal estefania when it gave way and he fell out onto an outstretched wrist. He now has pain, particularly with range of motion or palpation. His pain is only in his wrist and he denies any numbness, tingling or weakness. He has no elbow or shoulder pain. He denies any head neck or back pain. Related Data Home Medications Medication Instructions Recorded Confirmed carbamazepine 200 mg tablet 200 mg PO BID tab 11/08/18 09/24/20 lamotrigine 200 mg tablet 200 mg PO BID 11/08/18 09/24/20 levothyroxine 50 mcg capsule 50 mcg PO DAILY 11/08/18 09/24/20 lithium carbonate 150 mg capsule 150 mg PO 5XD cap 11/08/18 09/24/20 quetiapine 50 mg tablet 100 mg PO BID 11/08/18 09/24/20 aspirin 325 mg tablet 325 mg PO DAILY 09/24/20 09/24/20 desonide 0.05 % topical cream 1 applic TOPICAL DAILY 09/24/20 09/24/20 loratadine 10 mg tablet 10 mg PO DAILY 09/24/20 09/24/20 (Allerclear) propranolol 10 mg tablet 10 mg PO QID 09/24/20 09/24/20 Allergies Allergy/AdvReac Type Severity Reaction Status Date / Time No Known Drug Allergies Allergy Verified 07/27/21 17:37 Review of Systems Review of Systems Narrative: GENERAL: Denies chills, fatigue, malaise, fever, sweats. HEENT: Denies sinus pain, ear pain, sore throat, difficulty swallowing, dizziness. RESPIRATORY: Denies dyspnea, cough, wheezing, hemoptysis, sputum. CARDIOVASCULAR: Denies chest pain, palpitations, orthopnea, edema, GASTROINTESTINAL: Denies nausea, vomiting, abdominal pain, diarrhea, constipation, melena. : Denies dysuria, frequency, incontinence, hematuria, urinary retention. MUSCULOSKELETAL: See HPI SKIN: Denies rash, skin lesions, or other NEUROLOGIC: Denies weakness, headache, numbness, change in speech, confusion, seizures, incoordination. PSYCHIATRIC: No concerning psychosocial issues. 12 point review of systems is negative except for those stated above Patient History Social History household members: spouse Smoking Status: Never smoker Smoking Status: Never smoker alcohol intake frequency: other Substance Use Type: does not use Exam Narrative Exam Narrative: GEN: AOx3 and in mild distress EYES: Pupils are equal, round, and reactive to light and accommodation. Extraoccular muscles are intact bilaterally. There is no subconjunctival hemorrhage or exudate. CHEST: Lungs are clear to auscultation bilaterally and free of wheezes, rales, or rhonchi. Heart rate is regular rhythm, there are no murmurs, clicks, rubs, or gallops. There is no chest wall tenderness. ABD: Abdomen is soft and nontender. There is no guarding or rebound. Bowel sounds are normal in all 4 quadrants. There is no mass or organomegaly. EXT: Full but painful range of motion at left wrist. Minimal swelling overlying dorsal radius. Full range of motion of fingers and thumb. Cap refill less than 2 seconds in all fingers. No pain in elbow or shoulder. This is closed, isolated and neurovascularly intact SKIN: Warm, pink, and dry. No erythema or rash Initial Vital Signs Initial Vital Signs: Vital Signs Temperature 98.0 F 09/07/21 20:12 Pulse Rate 55 L 09/07/21 20:12 Respiratory Rate 18 09/07/21 20:12 Blood Pressure 138/78 09/07/21 20:12 Pulse Oximetry 99 09/07/21 20:12 Procedures Orthopedic Splinting/Casting Injury #1: Side: left Upper Extremity Injury Location: wrist Upper Extremity Immobilizer: volar splint Post splinting neuro exam: intact Post splinting vascular exam: intact Placed by: Nursing Course Reevaluation(s) Reevaluation #1: Call placed to on-call orthopedist, Dr. Hargrove. He has reviewed the images and recommends a simple volar splint only, no need for sugar-tong Vital Signs Vital signs: Vital Signs - 8 hr 09/07/21 22:29 Pulse Rate 56 L Blood Pressure 141/80 H Pulse Oximetry 100 MDM - Extremity Injury (Upper) Imaging Data Extremity x-ray #1: Radiologist's Impression: Chart Viewer Diagnostics Subcategory All Activity ??:?? All Time ??:?? All Subcategories Filter Laboratory Imaging Microbiology Pathology Blood Bank Tests Cardiovascular Other Specialty DATE TYPE STATUS REF RANGE/AUTHOR Hx 09/07/21 20:19 Wrist X-Ray Signed Darron Hsieh 09/07/21 20:19 Forearm X-Ray Signed Darron Hsieh 07/27/21 19:26 Chest X-Ray Signed Tunde Nguyen 01/23/21 16:52 Abdomen/Pelvis CT Signed Tunde Nguyen 01/23/21 15:15 Chest/Abdomen X-ray Signed Volodymyr Hough 08/21/20 00:[address] Signed Isabel Saldana 04/04/19 11:26 Telemetry Strips ? Tunde Hale ED 70, M?1950 MRN#? [id number] DEP ER,?Main ED??? 172.72cm 74.389kg BMI: 24.9kg/m? Extremity Injury, Upper Acc#? [id number] Resus Status Not Ordered Hx Avail Special Indicators No Data to Display Home Meds Not Confirmed Prescription Monitoring Program MEDICATIONS (INSTRUCTIONS) LAST TAKEN Active ??aspirin ??325 mgPODAILY ??carbamazepine 200 mg tablet ??200 mgPOBID?tab ??desonide ??1 applicTOPICALDAILY ??lamotrigine 200 mg tablet ??200 mgPOBID ??levothyroxine 50 mcg capsule ??50 mcgPODAILY ??lithium carbonate 150 mg capsule ??150 [id number]?cap ??loratadine [Allerclear] ??10 mgPODAILY ??propranolol ??10 mgPOQID ??quetiapine 50 mg tablet ??100 mgPOBID Allergies No Known Drug Allergies Problems ? ONSET Distal radius fracture MGUS (monoclonal gammopathy of unknown significance) Vital Signs 09/07/21 22:29 BP 141/80?H Pulse 56?L O2 Sat 100? Delivery Room Air? Diagnostics Reports Tunde Hale??70??M??1950 ? Allergy/Adv: No Known Drug Allergies (More??) Close Wrist X-Ray (Signed) Darron Hsieh - 09/07/21 Forearm X-Ray (Signed) Darron Hsieh - 09/07/21 Chest X-Ray (Signed) Tunde Nguyen - 07/27/21 Abdomen/Pelvis CT (Signed) Tunde Nguyen - 01/23/21 Chest/Abdomen X-ray (Signed) Volodymyr Hough - 01/23/[address] (Signed) Isabel Saldana - 08/21/20 Telemetry Strips 04/04/19 Launch?[address] [address] XRay Report Signed Patient: Tunde Hale MR#: [id number] : 1950 Acct:[id number] Age/Sex: 70 / M Date of Service: 09/07/21 Loc: ED Accession Number: [id number] ?? Procedure: XR wrist LT min 3V Ordering Provider: Chemo Gambino D.O. PROCEDURE:? XR FOREARM LT 2V, 09/07/2021, 20:15 XR WRIST LT MIN 3V, 09/07/2021, 20:15 ? INDICATIONS:? Fell, swelling to L FA, pain to wrist ? TECHNIQUE:? 2 views of the forearm were acquired.? ? COMPARISON:? None. ? FINDINGS:? ? Bones:? The distal radius has a nondisplaced oblique fracture extending from the radial surface to the articular surface.? No other fractures identified.? There are degenerative changes of the 1st carpometacarpal joint. ? Soft tissues:? No suspicious soft tissue calcifications or masses.? ? ? IMPRESSION:? Nondisplaced fracture of the distal radius with articular surface involvement. ? Dictated by: Darron Hsieh M.D. on 09/07/2021 at 20:47 ? ? Approved by: Darron Hsieh M.D. on 09/07/2021 at 20:50 ? Discharge Plan Departure Patient Disposition: Home Clinical Impression: Distal radius fracture Instructions: DI for Distal Radius Fracture Activity Restrictions/Additional Instructions: *You have been diagnosed with [left distal radius fracture] *What to do: *Please continue to take your regular medications as directed. [ ] New medication prescriptions sent to your pharmacy: [ ] [ ] New medication written as a paper prescription [x] Tylenol and occasional Motrin for pain *Please follow up with [ Beena] of [facility] in 2-3 days, call for an appointment. Let them know you were seen in the Emergency Department and that we ask that you be seen in follow up. We will electronically transmit a record of today's note if your PCP is in our system *Return to Emergency Department if you should have any new, worsening or concerning symptoms, such as [worsening pain, significant swelling, cold e xtremities, numbness, tingling, weakness or other bothersome symptoms Splint Care: Keep splint clean and dry. Elevated affected body part to decrease swelling. OK to use ice pack on the affected body part. Use for 15-20 minutes each time, for 5-6x per day. If you develop worsening pain, numbness, tingling, discoloration of the affected body part, loosen the splint by loosening the BLACK wrap, and either see your doctor for an urgent re-assessment, or return to the Emergency Department. Return to the Emergency Department for any new or worsening symptoms. Prescriptions: No Action lamotrigine 200 mg tablet 200 mg PO BID 0RF lithium carbonate 150 mg capsule 150 mg PO 5XD 0RF carbamazepine 200 mg tablet 200 mg PO BID 0RF quetiapine 50 mg tablet 100 mg PO BID 0RF levothyroxine 50 mcg capsule 50 mcg PO DAILY 0RF desonide 0.05 % Cream 1 applic TOPICAL DAILY 0RF aspirin 325 mg Tablet 325 mg PO DAILY 0RF propranolol 10 mg Tablet 10 mg PO QID 0RF loratadine [Allerclear] 10 mg Tablet 10 mg PO DAILY 0RF Referrals: Og Larios MD [Primary Care Provider] - Joaquin Hargrove MD [Physician] -
== END 2021-09-07 22:37 | disposition home or self-care (01) ==
PROVIDERS: Emergency Provider Emergency Medicine; PCP Internal Medicine
DX: S52.502A Unspecified fracture of the lower end of left radius, initial encounter for closed fracture (principal); W18.30XA Fall on same level, unspecified, initial encounter
CPT/HCPCS: 73090; 73110; 99283

== ENCOUNTER → 2021-09-14 10:45 | Outpatient (CLI) | payer MEDICARE, OTHER, SELFPAY ==
--- NOTE | 2021-09-14 10:57 | DI.CT.S_ITS ---
PROCEDURE: CT ABDOMEN PELVIS WO CON INDICATIONS: Abdominal aortic aneurysm, without rupture TECHNIQUE: Axial sections were acquired from the lung bases to the pubic symphysis. Coronal and sagittal reformats were performed. For radiation dose reduction, the following was used: automated exposure control, adjustment of mA and/or kV according to patient size. COMPARISON: [facility], CT, CT ABDOMEN PELVIS W CON, 01/23/2021, 17:09. FINDINGS: Image quality: Excellent. Lung bases: Unremarkable. Heart: No significant findings. URINARY: Right Kidney: Punctate nephrolithiasis without hydronephrosis. Right Ureter: No hydroureter Left Kidney: Punctate nephrolithiasis without hydronephrosis. Left Ureter: No hydroureter. Bladder: Mildly prominent wall, measuring up to 4 mm. No stones. ABDOMEN: Liver: Unremarkable. Gallbladder: Persistent distention. No gallbladder wall thickening or pericholecystic fluid. Redemonstrated calcified gallstone, measuring up to 2.3 cm. Biliary ducts: Unremarkable. Pancreas: Unremarkable. Spleen: Unremarkable. Adrenal Glands: Unremarkable. Stomach and Bowel: No evidence of intestinal obstruction. Large stool burden throughout the colon. Normal appearance of the appendix. Peritoneum: No abnormal intraperitoneal fluid. No free air. Ventral Wall: Trace fat containing periumbilical hernia. Abdominal Nodes: No enlarged retroperitoneal or mesenteric lymph nodes. Vessels: Aorta and inferior vena cava are normal in size. PELVIS: Pelvic Organs: Enlarged, measuring up to 4.8 cm. Pelvic Nodes: Unremarkable. Miscellaneous: Trace fat containing left inguinal hernia. Bones: Multifocal degenerative change. IMPRESSION: 1. Distention of the gallbladder with cholelithiasis. 2. Bilateral nephrolithiasis without evidence of obstructive uropathy. 3. Large amount of stool throughout the colon. Dictated by: Francisco Yip M.D. on 09/14/2021 at 11:57 Approved by: Francisco Yip M.D. on 09/14/2021 at 12:09
== END ==
PROVIDERS: PCP Internal Medicine; Referring Provider Internal Medicine; Visit Provider Internal Medicine
DX: I71.4 Abdominal aortic aneurysm, without rupture (principal); K80.20 Calculus of gallbladder without cholecystitis without obstruction; N20.0 Calculus of kidney
CPT/HCPCS: 74176

== ENCOUNTER 2021-10-23 12:21 | Emergency (ER) | payer MEDICARE, OTHER, SELFPAY ==
[2021-10-23 12:26] VITALS: BP 143/77; PULSE 60; RESP 16; TEMP 36.7; O2SAT 97; BMI 24.9
--- NOTE | 2021-10-23 12:59 | ED_ITS ---
HPI - Extremity Problem <Taco Philip PA-C - Last Filed: 10/23/21 19:04> General Chief complaint: Extremity Problem,Nontraumatic Stated complaint: pain left arm Time Seen by Provider: 10/23/21 12:40 History of Present Illness HPI Narrative: Patient is a 71-year-old male presenting to the emergency department today for evaluation left arm pain. Patient states that approximately 1 and half months ago he experienced a left wrist fracture and he states that the fracture is nearly completely healed. He notes that he began physical therapy yesterday and notes that everything had been going well. Patient explains that over the past 2 nights he has experienced pain in the left underarm area that has disrupted his sleep. His , who escorted the patient to the emergency department today, states they would like to rule out of DVT. Patient denies fever, chills, chest pain, cough, shortness of breath, nausea, vomiting, diarrhea, abdominal pain, dysuria, hematuria, numbness and tingling the upper extremities, swelling in the bilateral lower extremities, or any other concerning symptoms. No further concerns reports this time. No recent falls or trauma reported. Related Data Home Medications Medication Instructions Recorded Confirmed carbamazepine 200 mg tablet 200 mg PO BID tab 11/08/18 09/24/20 lamotrigine 200 mg tablet 200 mg PO BID 11/08/18 09/24/20 levothyroxine 50 mcg capsule 50 mcg PO DAILY 11/08/18 09/24/20 lithium carbonate 150 mg capsule 150 mg PO 5XD cap 11/08/18 09/24/20 quetiapine 50 mg tablet 100 mg PO BID 11/08/18 09/24/20 aspirin 325 mg tablet 325 mg PO DAILY 09/24/20 09/24/20 desonide 0.05 % topical cream 1 applic TOPICAL DAILY 09/24/20 09/24/20 loratadine 10 mg tablet 10 mg PO DAILY 09/24/20 09/24/20 (Allerclear) propranolol 10 mg tablet 10 mg PO QID 09/24/20 09/24/20 Previous Rx's Medication Instructions Recorded gabapentin 300 mg capsule 300 mg PO BEDTIME #20 cap 10/23/21 Allergies Allergy/AdvReac Type Severity Reaction Status Date / Time No Known Drug Allergies Allergy Verified 07/27/21 17:37 Review of Systems <Taco Philip PA-C - Last Filed: 10/23/21 19:04> Constitutional Constitutional: Denies chills, Denies fatigue, Denies fever(s), Denies frequent falls, Denies lethargy and Denies weakness Eyes Eyes: Denies loss of vision ENT Ears, Nose, Mouth, and Throat: Denies dizziness and Denies neck pain Cardiovascular Cardiovascular: Denies chest pain, Denies irregular heart rhythm, Denies lightheadedness, Denies palpitations, Denies dyspnea, Denies dyspnea on exertion and Denies orthopnea Respiratory Respiratory: Denies cough, Denies dyspnea, Denies dyspnea on exertion and Denies wheezing Gastrointestinal Gastrointestinal: Denies abdominal pain, Denies change in bowel habits, Denies d iarrhea, Denies nausea and Denies vomiting Genitourinary Genitourinary: Denies hematuria, Denies flank pain, Denies urinary incontinence and Denies urinary urgency Musculoskeletal Musculoskeletal: Denies back pain, Denies deformity, Denies joint swelling, Denies muscle weakness, Denies neck pain, Denies numbness, Denies tingling and Reports other (Pain left axilla) Integumentary/Breasts Skin/Breast: Denies pruritus, Denies erythema, Denies rash and Denies wounds Neurologic Neurologic: Denies behavioral changes, Denies confusion, Denies dizziness, Denies frequent falls, Denies loss of vision, Denies numbness, Denies tingling and Denies weakness Psychiatric Psychiatric: Denies behavioral changes and Denies confusion Endocrine Endocrine: Denies fatigue and Denies palpitations Allergic/Immunologic Allergic/Immunologic: Denies wheezing Patient History <Taco Philip PA-C - Last Filed: 10/23/21 19:04> Social History household members: spouse Smoking Status: Never smoker Smoking Status: Never smoker alcohol intake frequency: other Substance Use Type: does not use Exam <Taco Philip PA-C - Last Filed: 10/23/21 19:04> Narrative Exam Narrative: GENERAL: 71 year old patient appears stated age. Well-developed patient, in mild distress. HEAD: Atraumatic. Normocephalic. EYES: Pupils equal round and reactive. Extraocular motions intact. No scleral icterus. No injection or drainage. ENT: Nose without bleeding, purulent drainage. Throat without erythema, tonsillar hypertrophy or exudate. Airway patent. NECK: Trachea midline. Non tender CARDIOVASCULAR: Regular rate and rhythm without murmurs, gallops, or rubs. RESPIRATORY: Clear to auscultation. Breath sounds equal bilaterally. No wheezes, rales, or rhonchi. GASTROINTESTINAL: Abdomen soft, non-tender, nondistended. EXTREMITIES: No edema or joint tenderness. Tender point palpation under the left axilla. No significant warmth, erythema, swelling, fluctuance noted in the area of tenderness. BACK: Nontender without deformity or crepitance. No flank tenderness. NEURO: AOx3. SKIN: No rash or erythema of visible areas Initial Vital Signs Initial Vital Signs: Vital Signs Temperature 98.1 F 10/23/21 12:26 Pulse Rate 60 10/23/21 12:26 Respiratory Rate 16 10/23/21 12:26 Blood Pressure 143/77 H 10/23/21 12:26 Pulse Oximetry 97 10/23/21 12:26 Cardio Pulses: radial pulses present bilaterally <DO Tavares Purcell Last Filed: 10/24/21 07:26> Initial Vital Signs Initial Vital Signs: Vital Signs Temperature 98.1 F 10/23/21 12:26 Pulse Rate 60 10/23/21 12:26 Respiratory Rate 16 10/23/21 12:26 Blood Pressure 143/77 H 10/23/21 12:26 Pulse Oximetry 97 10/23/21 12:26 Course <Taco Philip PA-C - Last Filed: 10/23/21 19:04> Course Course Narrative: Left upper extremity ultrasound obtained. Orders Ordered: ED Orders 10/23/21 13:00 US periph venous up extrem lt Stat Vital Signs Vital signs: Vital Signs - 8 hr 10/23/21 12:26 10/23/21 14:05 Temperature 98.1 F Pulse Rate 60 55 L Respiratory Rate 16 15 Blood Pressure 143/77 H 107/61 Pulse Oximetry 97 99 <aYniv Hall DO - Last Filed: 10/24/21 07:26> Orders Ordered: ED Orders 10/23/21 13:00 US periph venous up extrem lt Stat Vital Signs Vital signs: Vital Signs - 8 hr 10/23/21 12:26 10/23/21 14:05 Temperature 98.1 F Pulse Rate 60 55 L Respiratory Rate 16 15 Blood Pressure 143/77 H 107/61 Pulse Oximetry 97 99 MDM - Extremity (Nontraumatic) <Taco Philip PA-C - Last Filed: 10/23/21 19:04> Imaging Data US - DVT: Radiologist's Impression: PROCEDURE:? US PERIPH VENOUS UP EXTREM LT ? INDICATIONS:? LEFT UNDERARM PAIN ? TECHNIQUE:? Real-time imaging, as well as color and pulse Doppler interrogation, was performed of the left upper extremity deep veins from the inferior neck to the antecubital fossa.? ? COMPARISON:? None. ? FINDINGS:? The internal jugular vein, visualized portions of the subclavian vein, axillary, and brachial veins are free of intraluminal thrombus.? Where physically possible, the veins are normally compressible.? Color and pulse Doppler demonstrate normal intraluminal flow, with expected phasicity and pulsatility.? Additional scanning of the cephalic and basilic veins of the superficial system demonstrate normal compressibility, without thrombus.? ? ? IMPRESSION:? ? Negative for deep venous thrombosis. ? ? Dictated by: Tristian Hong M.D. on 10/23/2021 at 12:33 ? ? Approved by: Tristian Hong M.D. on 10/23/2021 at 12:33 ? [facility] Narrative Medical decision making narrative: To consider musculoskeletal pain versus superficial venous thrombophlebitis versus DVT versus cellulitis. Overall physical examination, history, and imaging obtained in the emergency department today were reassuring. Discussed results of ultrasound with patient and and informed them that no signs of DVT were identified. I recommended that the patient begin a course of gabapentin to help alleviate discomfort. Additionally, I recommended that the patient establish primary care for further evaluation of his pain. Patient and his expressed understanding and agreed to plan. At this time they are comfortable being discharged home. Strict return precautions were discussed prior to discharge. At this time patient is stable for discharge. Discharge Plan Departure Patient Disposition: Home Clinical Impression: Arm pain, left Instructions: DI for Arm Pain Activity Restrictions/Additional Instructions: *You have been diagnosed with acute left arm pain *What to do: *Please continue to take your regular medications as directed. [X] New medication prescriptions sent to your pharmacy: [facility] [place] - gabapentin [ ] New medication written as a paper prescription [ ] No new medications given *Please follow up with your primary care provider in 2-3 days, call for an appointment. Let them know you were seen in the Emergency Department and that we ask that you be seen in follow up. We will electronically transmit a record of today's note if your PCP is in our system *If you do not have a primary care provider please contact the [facility] Resource line at [phone]. They will ask some questions about your medical history and help get you set up with a doctor in the community. *Return to Emergency Department if you should have any new, worsening or concerning symptoms, such as fever greater than 101 F, shaking chills, worsening pain, persistent vomiting or other bothersome symptoms. Prescriptions: New gabapentin 300 mg capsule 300 mg PO BEDTIME Qty: 20 0RF No Action lamotrigine 200 mg tablet 200 mg PO BID 0RF lithium carbonate 150 mg capsule 150 mg PO 5XD 0RF carbamazepine 200 mg tablet 200 mg PO BID 0RF quetiapine 50 mg tablet 100 mg PO BID 0RF levothyroxine 50 mcg capsule 50 mcg PO DAILY 0RF desonide 0.05 % Cream 1 applic TOPICAL DAILY 0RF aspirin 325 mg Tablet 325 mg PO DAILY 0RF propranolol 10 mg Tablet 10 mg PO QID 0RF loratadine [Allerclear] 10 mg Tablet 10 mg PO DAILY 0RF Referrals: Og Larios MD [Primary Care Provider] - <Yaniv Hall DO - Last Filed: 10/24/21 07:26> [facility] Dr Hall Co-Sign Statement: I was available for consultation during this patient's emergency department visit. This chart is signed by myself for administrative purposes only. I did not have direct contact with this patient during this visit. They were seen independently by the APC.
--- NOTE | 2021-10-23 13:00 | DI.US.S_ITS ---
PROCEDURE: US PERIPH VENOUS UP EXTREM LT INDICATIONS: LEFT UNDERARM PAIN TECHNIQUE: Real-time imaging, as well as color and pulse Doppler interrogation, was performed of the left upper extremity deep veins from the inferior neck to the antecubital fossa. COMPARISON: None. FINDINGS: The internal jugular vein, visualized portions of the subclavian vein, axillary, and brachial veins are free of intraluminal thrombus. Where physically possible, the veins are normally compressible. Color and pulse Doppler demonstrate normal intraluminal flow, with expected phasicity and pulsatility. Additional scanning of the cephalic and basilic veins of the superficial system demonstrate normal compressibility, without thrombus. IMPRESSION: Negative for deep venous thrombosis. Dictated by: Tristian Hong M.D. on 10/23/2021 at 12:33 Approved by: Tristian Hong M.D. on 10/23/2021 at 12:33
[2021-10-23 14:05] VITALS: BP 107/61; PULSE 55; RESP 15; O2SAT 99
== END 2021-10-23 14:07 | disposition home or self-care (01) ==
PROVIDERS: Emergency Provider Physician Assistant; PCP Internal Medicine
DX: M79.622 Pain in left upper arm (principal)
CPT/HCPCS: 93971; 99283

== ENCOUNTER → 2022-02-16 17:22 | Outpatient (CLI) | payer MEDICARE, OTHER, SELFPAY ==
[2022-02-16 17:53] LABS: Hematocrit 41.6 % (41-53); Hemoglobin 13.9 g/dL (13.5-17.5); Mean Corpuscular HGB Conc 33.5 % (30-36); Mean Corpuscular Hemoglobin 32.6 PG (26-34); Mean Corpuscular Volume 97.2 fL (80-100); Platelet Count 193 X10^3/uL (150-400); Red Blood Cell Count 4.27 X10^6/uL (4.5-5.9); Red Cell Distribution Width 12.8 % (11.6-14.8); White Blood Cell Count 5.9 X10^3/uL (4.5-11.0)
[2022-02-16 18:08] LABS: Lithium 1.2 mmol/L (0.6-1.2)
[2022-02-16 18:09] LABS: Alanine Aminotransferase 8 IU/L (<50); Albumin 4.7 g/dL (3.5-5.0); Albumin Globulin Ratio 1.7 (1.0-2.8); Alkaline Phosphatase 93 U/L (38-126); Aspartate Aminotransferase 34 IU/L (17-59); BUN Creatinine Ratio 15.8 (6-22); Bilirubin Total 0.5 mg/dL (0.2-1.3); Blood Urea Nitrogen 21 mg/dL (9-20); Calcium 9.8 mg/dL (8.4-10.2); Carbon Dioxide 31 mmol/L (22-32); Chloride 106 mmol/L (98-107); Cholesterol 122 mg/dL (140-199); Estimated Glomerular Filt Rate 58 mL/min (>60); Globulin 2.8 g/dL (1.7-4.1); Glucose 67 mg/dL (80-110); HDL Cholesterol 53 mg/dL (40-60); HEMOLYSIS 15 (0-50); LDL Cholesterol Calculated 51 mg/dL (<100); Potassium 4.2 mmol/L (3.4-5.1); Sodium 143 mmol/L (137-145); Total Protein 7.5 g/dL (6.3-8.2); Triglycerides 92 mg/dL (35-150)
[2022-02-16 18:39] LABS: Prostate Specific Antigen 1.51 ng/mL (0.10-4.00)
[2022-02-16 18:41] LABS: TSH w/ Reflex to FT4 1.25 uIU/mL (0.47-4.68)
[2022-02-18 01:36] LABS: Carbamazepine Tegretol Level 4.8 ug/mL (4.0-12.0)
== END ==
PROVIDERS: PCP Internal Medicine; Referring Provider Internal Medicine; Visit Provider Internal Medicine
DX: E78.2 Mixed hyperlipidemia (principal); N40.0 Benign prostatic hyperplasia without lower urinary tract symptoms; E03.9 Hypothyroidism, unspecified; F31.9 Bipolar disorder, unspecified
CPT/HCPCS: 36415; 80053; 80061; 80156; 80178; 84153; 84443; 85027

== ENCOUNTER → 2022-04-20 10:03 | Outpatient (CLI) | payer MEDICARE, OTHER, SELFPAY | PROVIDERS: PCP Internal Medicine | DX: F31.9 Bipolar disorder, unspecified (principal) | CPT/HCPCS: 36415; 80178 ==

== ENCOUNTER 2022-07-15 16:30 | Emergency (ER) | payer MEDICARE, OTHER, SELFPAY ==
[2022-07-15 16:40] VITALS: BP 122/75; PULSE 52; RESP 18; TEMP 36.7; O2SAT 100; BMI 22.0
--- NOTE | 2022-07-15 18:33 | ED.FALL ---
HPI - Fall <Rosemarie Huitron PA-C - Last Filed: 07/15/22 20:11> General Chief Complaint: Fall Stated Complaint: glf, head lac Time Seen by Provider: 07/15/22 17:56 Source: patient Mode of arrival: Wheelchair History of Present Illness HPI Narrative: The patient is a very pleasant 71-year-old male, with past medical history significant for slowly progressive Parkinson disease, bipolar disease, hypothyroidism, dyslipidemia, has been having difficulty with balance for over a year now. He often falls, complaining his unsteady balance. He also does have shuffling gait, hand tremors, which makes it difficult to use a walker for ambulating, although patient tries his best to avoid falls. This time patient tripped and fell backwards and hit his scalp on the corner of a kitchen cabinet. His bowels tried to stop the bleeding applying pressure dressing, I discovered deep and large size laceration, and brought patient to emergency department for repair. Current the patient denies headache, visual changes, nausea vomiting, memory loss, he does admit to bleeding from his scalp. Related Data Home Medications Medication Instructions Recorded Confirmed carbamazepine 200 mg tablet 200 mg PO BID 11/08/18 06/03/22 lamotrigine 200 mg tablet 200 mg PO BID 11/08/18 06/03/22 levothyroxine 50 mcg capsule 50 mcg PO DAILY 11/08/18 06/03/22 lithium carbonate 150 mg capsule 150 mg PO 5XD 11/08/18 06/03/22 aspirin 325 mg tablet 325 mg PO DAILY 09/24/20 06/03/22 loratadine 10 mg tablet 10 mg PO DAILY 09/24/20 06/03/22 (Allerclear) carbidopa 25 mg-levodopa 100 mg 1.5 tab PO QID 02/03/22 06/03/22 tablet cholecalciferol (vitamin D3) 50 2,000 unit PO DAILY 02/03/22 06/03/22 mcg (2,000 unit) tablet docusate sodium 100 mg capsule 600 mg PO DAILY 02/03/22 06/03/22 (Colace) propranolol 20 mg tablet 20 mg PO BID 02/03/22 06/03/22 quetiapine 100 mg tablet 150 mg PO BEDTIME 02/03/22 06/03/22 wheat dextrin 5 gram/7.4 gram oral 5 g PO DAILY 02/03/22 06/03/22 powder (Benefiber Healthy Shape) polyethylene glycol 3350 17 8.5 g PO DAILY PRN severe 06/03/22 06/03/22 gram/dose oral powder (LaxaClear) constipation Previous Rx's Medication Instructions Recorded rosuvastatin 10 mg tablet 10 mg PO DAILY #90 tabs 06/03/22 Allergies Allergy/AdvReac Type Severity Reaction Status Date / Time No Known Drug Allergies Allergy Verified 06/03/22 07:51 Review of Systems <Rosemarie Huitron PA-C - Last Filed: 07/15/22 20:11> Review of Systems Narrative: GENERAL: Denies chills, admits to fatigue, brenden malaise, fever, sweats. HEENT: Denies sinus pain, ear pain, sore throat, difficulty swallowing, dizziness. RESPIRATORY: Denies dyspnea, cough, wheezing, hemoptysis, sputum. CARDIOVASCULAR: Denies chest pain, palpitations, orthopnea, edema, GASTROINTESTINAL: Denies nausea, vomiting, abdominal pain, diarrhea, constipation, melena. : Denies dysuria, frequency, incontinence, hematuria, urinary retention. MUSCULOSKELETAL: denies weakness, joint pain, or bony pain SKIN: Denies rash, skin laceration as per HPI NEUROLOGIC: Denies focal weakness, headache, numbness, change in speech, confusion, seizures, incoordination. He does have long standing ho parkinson slowly progressing affecting his gate , worsening tremors also has a history of bipolar dz well managed on currnent medication PSYCHIATRIC: No concerning psychosocial issues. 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 Well-developed patient, in no distress. HEAD: . Normocephalic. christine is 4 cm laceration extending into SC fat in occipital area EYES: Pupils equal round and reactive. Extraocular motions intact. No scleral icterus. No injection or drainage. Fundoscopic is NL ENT: Nose without bleeding, purulent drainage. Throat without erythema, tonsillar hypertrophy or exudate. Airway patent. NECK: Trachea midline. Non tender CARDIOVASCULAR: Regular rate and rhythm without murmurs, gallops, or rubs. RESPIRATORY: Clear to auscultation. Breath sounds equal bilaterally. No wheezes, rales, or rhonchi. GASTROINTESTINAL: Abdomen soft, non-tender, nondistended. EXTREMITIES: No edema or joint tenderness. NEURO: AOx3. memory intact coordination intact, reflexes in LE are hypoactive pin prick and light touch is intact SKIN: No rash or erythema except for laceration Initial Vital Signs Initial Vital Signs: Vital Signs Temperature 98.0 F 07/15/22 16:40 Pulse Rate 52 L 07/15/22 16:40 Respiratory Rate 18 07/15/22 16:40 Blood Pressure 122/75 07/15/22 16:40 Pulse Oximetry 100 07/15/22 16:40 Oxygen Delivery Method 07/15/22 16:40 <Yaniv Hall DO - Last Filed: 07/16/22 07:17> Initial Vital Signs Initial Vital Signs: Vital Signs Temperature 98.0 F 07/15/22 16:40 Pulse Rate 52 L 07/15/22 16:40 Respiratory Rate 18 07/15/22 16:40 Blood Pressure 122/75 07/15/22 16:40 Pulse Oximetry 100 07/15/22 16:40 Oxygen Delivery Method 07/15/22 16:40 Procedures <Rosemarie Huitron PA-C - Last Filed: 07/15/22 20:11> Laceration Repair Procedure Note Date of procedure: 07/15/22 Pre-op diagnosis: laceration scalp Post-op diagnosis: same Location: occipital mid line Length: 4 cm Anesthesia: 2% Lidocaine (with epi ) Irrigation: saline Type of suture: other (herbie applied X 7 ) Complications: none Patient tolerance: well tolerated Procedure performed by: Rosemarie Huitron Disposition: other (done in ED ) Course <Rosemarie Huitron PA-C - Last Filed: 07/15/22 20:11> Orders Ordered: Discontinued Medications Lidocaine/Epinephrine (Lidocaine 2% W/Epi Inj) 20 ml INJ INTRA-OP ONE Stop: 07/15/22 18:56 Last Admin: 07/15/22 18:59 Dose: 3 ml Documented By: NR Vital Signs Vital signs: Vital Signs - 8 hr 07/15/22 16:40 Temperature 98.0 F Pulse Rate 52 L Respiratory Rate 18 Blood Pressure 122/75 Pulse Oximetry 100 Oxygen Delivery Method Room Air <Yaniv Hall DO - Last Filed: 07/16/22 07:17> Orders Ordered: Discontinued Medications Lidocaine/Epinephrine (Lidocaine 2% W/Epi Inj) 20 ml INJ INTRA-OP ONE Stop: 07/15/22 18:56 Last Admin: 07/15/22 18:59 Dose: 3 ml Documented By: NR Vital Signs Vital signs: Vital Signs - 8 hr 07/15/22 16:40 Temperature 98.0 F Pulse Rate 52 L Respiratory Rate 18 Blood Pressure 122/75 Pulse Oximetry 100 Oxygen Delivery Method Room Air MDM - Fall <Rosemarie Huitron PA-C - Last Filed: 07/15/22 20:11> Differential Diagnosis Differential diagnosis: Likely other (scalp laceration) [facility] Narrative Medical decision making narrative: patient sustained deep laceration of his occiput his neuro exam is NL except for s sx or parkinson dz the scalp laceration requires repair the wound was repaied as above advised to remove herbie in 7 days Discharge Plan Departure Patient Disposition: Home Clinical Impression: Laceration of scalp, Fall against object, Parkinson's disease Instructions: DI for Laceration Repair -- Herbie Activity Restrictions/Additional Instructions: you have been diagnosed with scalp occipital laceration - What to do: Take medications as directed Please keep the wound clean and dry to the best of your ability. Please monitor for signs of infection such as redness to the skin or increasing pain. Have the herbie removed by your doctor or Walk in Clinic in about 7 days. If you are unable to get into your doctor, we would be happy to remove the sutures/herbie in that same timeframe. Return to ER if you should have any new, worsening or concerning symptoms, such as fever > 101F, neck pain or stiffness, vomiting, confusion, seizure, focal weakness, vision change, speech deficit or other concerning symptoms Prescriptions: No Action lamotrigine 200 mg tablet 200 mg PO BID lithium carbonate 150 mg capsule 150 mg PO 5XD carbamazepine 200 mg tablet 200 mg PO BID levothyroxine 50 mcg capsule 50 mcg PO DAILY polyethylene glycol 3350 [LaxaClear] 17 gram/dose powder 8.5 g PO DAILY PRN (Reason: severe constipation) rosuvastatin 10 mg tablet 10 mg PO DAILY Qty: 90 3RF cholecalciferol (vitamin D3) 50 mcg (2,000 unit) tablet 2,000 unit PO DAILY carbidopa-levodopa 25-100 mg tablet 1.5 tab PO QID quetiapine 100 mg tablet 150 mg PO BEDTIME docusate sodium [Colace] 100 mg capsule 600 mg PO DAILY Benefiber Healthy Shape 5 gram/7.4 gram powder 5 g PO DAILY Rx Instructions: 2 tablespoons daily propranolol 20 mg tablet 20 mg PO BID Label Comments: take 1 tablet by mouth twice a day aspirin 325 mg Tablet 325 mg PO DAILY loratadine [Allerclear] 10 mg Tablet 10 mg PO DAILY Referrals: Og Larios MD [Primary Care Provider] - Visit Report Forms: Patient Portal/API <Yaniv Hall, DO - Last Filed: 07/16/22 07:17> Cosign ED Attending Cosignature Attestation: Dr Hall Co-Sign Statement: I was available for consultation during this patient's emergency department visit. This chart is signed by myself for administrative purposes only. I did not have direct contact with this patient during this visit. They were seen independently by the APC.
[2022-07-15] MEDS: LIDOCAINE 2% W/EPI INJ 20 ML INJ (18:59)
== END 2022-07-15 19:33 | disposition home or self-care (01) ==
PROVIDERS: Emergency Provider Physician Assistant Medical; PCP Internal Medicine
DX: S01.01XA Laceration without foreign body of scalp, initial encounter (principal); W18.00XA Striking against unspecified object with subsequent fall, initial encounter; G20 Parkinson's disease
CPT/HCPCS: 12002; 99283

== ENCOUNTER → 2022-07-27 14:03 | Outpatient (CLI) | payer MEDICARE, OTHER, SELFPAY ==
--- NOTE | 2022-07-27 14:12 | DIET.CONS ---
Dietary Consultation Note Assessment: 71y M attending RD visit with for help with diet to support CKD stage 3. 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 Pt also with Parkinson's. Pt and report sx not well controlled, pt with many breakthrough sx, especially in the afternoon despite increase in medication recently. Pt taking levodopa 1.5 tabs at 10am, 2 tabs at 2pm 2 tabs at 5pm, 1.5 tabs 10pm. Upon further review, pt often taking Parkinson's medications with a meal and likely experiencing competitive absorption of medication and protein containing foods. Pt reports especially bad sx after meal at [facility] here in [facility] when he took meds while sitting at table. Pt recently took trip to ED for stitches from falling last week. Usual Day: B (10am)- 1/2 cup NF lithuanian yogurt c fruit and bran buds, piece of toast c jam- sometimes pb with water and 6oz cranberry juice apple L (2pm)- sometimes combines lunch and dinner, leftovers, chicken or turkey sandwich (no sodium deli meat) c mustard, amanda, onion, lettuce. on low sodium sourdough bread, chicken taco, castillo peppers slices D (5-8pm)- mostly chicken- no beef, no fish ( is allergic) Ht: 5'8 Wt: 145# BMI: 22 (borderline low for age) UBW: 150# Nutrition Diagnosis: nutrition related knowledge deficit r/t diet to preserve renal function aeb pt and restricting many food categories based on old renal reccs including F/V/nuts/beans/whole grains, pt trying to promote weight gain with cakes and desserts. Interventions: 1. To address pts breakthrough Parkinson's sx pt likely having drug nutrient interactions with l-dopa, instructed pt and spouse on drug nutrient interactions with reccs to consume no protein between 9am-11am, 1pm-3pm, 4pm-6pm and 9pm-11pm. Pt will keep med timing the same but shift meal time. 2. To address renal nutrition therapy: a) educated on sodium in the diet, pt is doing well in this regard, limit sodium to no more than 600mg per meal. b) educated on phosphorus sources in the diet. Phos from food additives absorbed 100%-practiced label reading; phos from dairy-2/3 absorbed, limit to 2 servings daily; phos from nuts and beans -1/3 absorbed, enjoy 1/2 c beans and handful nuts daily. c) encouraged consumption of whole grain foods d) provided handout on high and low potassium F/V. Pt educated on freely eating low potassium foods and instructed to not stack too many high potassium foods in the same day. e) to support healthy weight as pt is borderline low BMI for age, recc low fat or full fat dairy instead of NF, encouraged intake nut butters and cooking oils, especially avocado oil and olive oil. EER: 2g sodium, limit phos additives Monitoring/Evaluations: f/u prn, pt has 3 nutrition visits annually for life covered by insurance because of CKD. Electronically Signed by: Lainey Ho 07/27/22 14:12 Clinical Dietitian [address] [id number]
== END ==
PROVIDERS: PCP Internal Medicine; Referring Provider Internal Medicine; Visit Provider Internal Medicine
DX: N18.30 Chronic kidney disease, stage 3 unspecified (principal); G20 Parkinson's disease; Z68.22 Body mass index [BMI] 22.0-22.9, adult; Z71.3 Dietary counseling and surveillance
CPT/HCPCS: 97802

== ENCOUNTER → 2022-10-13 11:16 | Outpatient (CLI) | payer MEDICARE, OTHER, SELFPAY ==
[2022-10-13 13:06] LABS: Add Manual Diff / Slide Review NO; Basophils Absolute Auto 0 /uL (0-100); Basophils Percent Auto 0.4 % (0-2); Eosinophils Absolute Auto 300 /uL (0-450); Eosinophils Percent Auto 3.4 % (2-4); Hemoglobin 13.9 g/dL (13.5-17.5); Lymphocytes Absolute Auto 1100 /uL (1100-4500); Lymphocytes Percent Auto 14.5 % (25-40); Mean Corpuscular HGB Conc 32.2 % (30-36); Mean Corpuscular Volume 99.5 fL (80-100); Monocytes Absolute Auto 400 /uL (0-900); Monocytes Percent Auto 5.7 % (3-14); Neutrophils Absolute Auto 6000 /uL (1500-7000); Platelet Count 209 X10^3/uL (150-400); Red Blood Cell Count 4.32 X10^6/uL (4.5-5.9); Red Cell Distribution Width 12.5 % (11.6-14.8); White Blood Cell Count 7.8 X10^3/uL (4.5-11.0)
[2022-10-13 13:38] LABS: Alanine Aminotransferase 13 IU/L (<50); Albumin 4.5 g/dL (3.5-5.0); Albumin Globulin Ratio 1.6 (1.0-2.8); Alkaline Phosphatase 109 U/L (38-126); Aspartate Aminotransferase 25 IU/L (17-59); BUN Creatinine Ratio 13.3 (6-22); Bilirubin Total 0.3 mg/dL (0.2-1.3); Blood Urea Nitrogen 18 mg/dL (9-20); Calcium 9.5 mg/dL (8.4-10.2); Carbon Dioxide 32 mmol/L (22-32); Chloride 103 mmol/L (98-107); Cholesterol 158 mg/dL (140-199); Estimated Glomerular Filt Rate 56 mL/min (>60); Globulin 2.9 g/dL (1.7-4.1); Glucose 77 mg/dL (80-110); HDL Cholesterol 66 mg/dL (40-60); HEMOLYSIS < 15 (0-50); LDL Cholesterol Calculated 64 mg/dL (<100); Sodium 142 mmol/L (137-145); Total Protein 7.4 g/dL (6.3-8.2); Triglycerides 140 mg/dL (35-150)
[2022-10-13 14:04] LABS: TSH w/ Reflex to FT4 3.33 uIU/mL (0.47-4.68)
[2022-10-13 14:07] LABS: Lithium 1.1 mmol/L (0.6-1.2)
[2022-10-14 08:13] LABS: Carbamazepine Tegretol Level 4.9 ug/mL (4.0-12.0)
== END ==
PROVIDERS: Internal Medicine Nephrology; PCP Internal Medicine; Referring Provider Internal Medicine; Visit Provider Internal Medicine
DX: E03.9 Hypothyroidism, unspecified (principal); E78.2 Mixed hyperlipidemia; F31.9 Bipolar disorder, unspecified; N18.31 Chronic kidney disease, stage 3a
CPT/HCPCS: 36415; 80053; 80061; 80156; 80178; 84443; 85025

== ENCOUNTER → 2023-04-04 16:45 | Outpatient (CLI) | payer MEDICARE, OTHER, SELFPAY ==
[2023-04-04 17:47] LABS: Hematocrit 39.8 % (41-53); Hemoglobin 13.4 g/dL (13.5-17.5); Mean Corpuscular HGB Conc 33.6 % (30-36); Mean Corpuscular Hemoglobin 32.9 PG (26-34); Mean Corpuscular Volume 97.9 fL (80-100); Platelet Count 199 X10^3/uL (150-400); Red Blood Cell Count 4.07 X10^6/uL (4.5-5.9); Red Cell Distribution Width 12.5 % (11.6-14.8); White Blood Cell Count 6.3 X10^3/uL (4.5-11.0)
[2023-04-04 18:22] LABS: Alanine Aminotransferase 8 IU/L (<50); Albumin 4.2 g/dL (3.5-5.0); Albumin Globulin Ratio 1.6 (1.0-2.8); Alkaline Phosphatase 116 U/L (38-126); Aspartate Aminotransferase 21 IU/L (17-59); BUN Creatinine Ratio 18.2 (6-22); Bilirubin Total 0.3 mg/dL (0.2-1.3); Blood Urea Nitrogen 25 mg/dL (9-20); Calcium 9.5 mg/dL (8.4-10.2); Carbon Dioxide 33 mmol/L (22-32); Chloride 104 mmol/L (98-107); Cholesterol 136 mg/dL (140-199); Estimated Glomerular Filt Rate 55 mL/min (>60); Globulin 2.7 g/dL (1.7-4.1); Glucose 90 mg/dL (80-110); HDL Cholesterol 64 mg/dL (40-60); HEMOLYSIS < 15 (0-50); LDL Cholesterol Calculated 46 mg/dL (<100); Potassium 4.3 mmol/L (3.4-5.1); Sodium 140 mmol/L (137-145); Total Protein 6.9 g/dL (6.3-8.2); Triglycerides 132 mg/dL (35-150)
[2023-04-04 18:51] LABS: TSH w/ Reflex to FT4 2.09 uIU/mL (0.47-4.68)
[2023-04-04 18:53] LABS: Prostate Specific Antigen 1.32 ng/mL (0.10-4.00)
[2023-04-06 23:12] LABS: Carbamazepine Tegretol Level 4.9 ug/mL (4.0-12.0)
[2023-04-08 14:10] LABS: Lamotrigine Lamictal 4.2 ug/mL (2.0-20.0)
== END ==
PROVIDERS: PCP Internal Medicine; Referring Provider Internal Medicine; Visit Provider Internal Medicine
DX: F31.9 Bipolar disorder, unspecified (principal); E03.9 Hypothyroidism, unspecified; N18.31 Chronic kidney disease, stage 3a
CPT/HCPCS: 36415; 80053; 80061; 80156; 80175; 84153; 84443; 85027

== ENCOUNTER 2023-05-25 18:53 | Emergency (ER) | payer MEDICARE, OTHER, SELFPAY ==
[2023-05-25] VITALS (8 sets, daily range): BP systolic 123–151; BP diastolic 65–100; PULSE 54–57; RESP 13–23; TEMP 36.8; O2SAT 98–99; BMI 22.5
--- NOTE | 2023-05-25 19:08 | DI.CT.S_ITS ---
PROCEDURE: CT HEAD/BRAIN WO CON INDICATIONS: fall with head injury TECHNIQUE: Noncontrast 4.5 mm thick angled axial sections acquired from the foramen magnum to the vertex, with coronal and sagittal reformats. For radiation dose reduction, the following was used: automated exposure control, adjustment of mA and/or kV according to patient size. COMPARISON: [facility], CT, CT FACIAL BONES WO CON, 05/25/2023, 19:17. [facility], CT, CT HEAD/BRAIN WO CON, 08/21/2020, 12:06. FINDINGS: Image quality: Excellent. CSF spaces: Basal cisterns are patent. No extra-axial fluid collections. Ventricles are normal in size and shape. Brain: No midline shift. No intracranial masses or hemorrhage. No area of hypodensity in a large vascular distribution to suggest acute infarction. Periventricular hypodensity consistent with chronic microvascular ischemic change. Age-related parenchymal loss. Skull and face: Calvarium and visualized facial bones are intact, without suspicious lesions. Sinuses: Visualized sinuses and mastoids are clear. IMPRESSION: No acute intracranial abnormality. Dictated by: Balwinder Robb M.D. on 05/25/2023 at 20:55 Approved by: Balwinder Robb M.D. on 05/25/2023 at 20:58
--- NOTE | 2023-05-25 19:08 | DI.CT.S_ITS ---
PROCEDURE: CT CERVICAL SPINE WO CON INDICATIONS: fall with face injury TECHNIQUE: Noncontrast 3 mm thick sections acquired from the skull base to the T4 level. Sagittal and coronal reformats were then constructed. For radiation dose reduction, the following was used: automated exposure control, adjustment of mA and/or kV according to patient size. COMPARISON: None. FINDINGS: Image quality: Excellent. Bones: No fractures or dislocations. Severe degenerative changes present including flowing syndesmophytes throughout the cervical spine. Visualized superior ribs are intact. Soft tissues: Prevertebral soft tissues are normal in thickness. No paravertebral hematomas. No apical pneumothoraces. IMPRESSION: Severe degenerative change. No acute cervical spine injury. Dictated by: Mary Lou Goel M.D. on 05/25/2023 at 20:54 Approved by: Mary Lou Goel M.D. on 05/25/2023 at 20:56
--- NOTE | 2023-05-25 19:08 | DI.CT.S_ITS ---
PROCEDURE: CT FACIAL BONES WO CON INDICATIONS: fall with facial injury TECHNIQUE: Noncontrast 2.5 mm thick axial images acquired from the mandible through the frontal sinuses, with coronal and sagittal reformatting. For radiation dose reduction, the following was used: automated exposure control, adjustment of mA and/or kV according to patient size. COMPARISON: [facility], CT, CT HEAD/BRAIN WO CON, 08/21/2020, 12:06. [facility], CT, CT HEAD/BRAIN WO CON, 05/25/2023, 19:17. FINDINGS: Image quality: Excellent. Bones and teeth: Right maxillary central incisor is missing. Orbital hill are intact. Sinus hill show no fracture or deformity. Nasal bones and septum are intact. Visualized portions of the mandible demonstrate no fractures or subluxation. Zygomatic arches are intact. Pterygoid plates are intact. Visualized portions of the skull base and auditory canals are intact. Sinuses: Mucosal thickening in the left maxillary sinus. Paranasal sinuses are otherwise aerated, without fluid levels, or mucocele. Mastoid air cells are aerated. Soft tissues: No edema, masses, or fluid collections. No enlarged lymph nodes. No soft tissue lacerations or debris. Vascular: Visualized vascular structures appear normal in the absence of contrast. Bony vascular foramina and canals are intact. IMPRESSION: No acute fracture. Right maxillary central incisor is missing. Dictated by: Balwinder Robb M.D. on 05/25/2023 at 20:58 Approved by: Balwinder Robb M.D. on 05/25/2023 at 21:05
--- NOTE | 2023-05-25 19:08 | DI.RAD.S_ITS ---
PROCEDURE: XR WRIST RT MIN 3V INDICATIONS: pain after fall TECHNIQUE: 4 views of the wrist were acquired. COMPARISON: [facility], , XR WRIST LT MIN 3V, 09/07/2021, 20:15. FINDINGS: Bones: No definite fracture is visualized; however on the AP view a subtle radiolucent line extends to the articular surface of the distal radius. No other fracture or dislocation. No suspicious bony lesions. Scaphoid view: The scaphoid is intact. Soft tissues: No suspicious soft tissue calcifications. IMPRESSION: Question nondisplaced distal radial fracture versus vascular groove. Dictated by: Mary Lou Goel M.D. on 05/25/2023 at 20:05 Approved by: Mary Lou Goel M.D. on 05/25/2023 at 20:07
--- NOTE | 2023-05-25 21:25 | ED.FALL ---
HPI - Fall General Chief Complaint: Fall Stated Complaint: GLF 05/24 parkinson Time Seen by Provider: 05/25/23 19:08 Source: patient and family Mode of arrival: Wheelchair History of Present Illness HPI Narrative: Patient is a 72-year-old male who has a history of Parkinson's disease. Yesterday was walking outside not using his walker when he states he tripped and fell. He did not fall forward in his face. He has been loss of consciousness. He would a very difficult time getting up. He was on the ground for approximately 20 minutes. It was his and son were the ones that helped him up. They did not come in to be evaluated at the time. Throughout the day today patient's states he has been more fatigued. Has had a difficult time getting around. Has been more unstable. He did sustain an injury to his right upper lip and did not out his right upper tooth in the fall. He was having some upper shoulder pain and also headache. Patient is not on anticoagulation Related Data Home Medications Medication Instructions Recorded Confirmed lithium carbonate 150 mg capsule 150 mg PO 5XD 11/08/18 04/04/23 aspirin 325 mg tablet 325 mg PO DAILY 09/24/20 04/04/23 loratadine 10 mg tablet 10 mg PO DAILY 09/24/20 04/04/23 (Allerclear) cholecalciferol (vitamin D3) 50 2,000 unit PO DAILY 02/03/22 04/04/23 mcg (2,000 unit) tablet docusate sodium 100 mg capsule 600 mg PO DAILY 02/03/22 04/04/23 (Colace) propranolol 20 mg tablet 20 mg PO BID 02/03/22 04/04/23 quetiapine 100 mg tablet 150 mg PO BEDTIME 02/03/22 04/04/23 wheat dextrin 5 gram/7.4 gram oral 5 g PO DAILY 02/03/22 04/04/23 powder (Benefiber Healthy Shape) polyethylene glycol 3350 17 8.5 g PO DAILY PRN severe 06/03/22 04/04/23 gram/dose oral powder (LaxaClear) constipation carbamazepine 200 mg 200 mg PO BID 07/26/22 04/04/23 tablet,extended release,12 hr lamotrigine 200 mg tablet,extended 200 mg PO BID 07/26/22 04/04/23 release 24 hr levothyroxine 50 mcg tablet 50 mcg PO DAILY 07/26/22 04/04/23 carbidopa 25 mg-levodopa 100 mg See Rx Instructions PO QID 04/04/23 04/04/23 tablet Previous Rx's Medication Instructions Recorded rosuvastatin 10 mg tablet 10 mg PO DAILY #90 tabs 04/04/23 Allergies Allergy/AdvReac Type Severity Reaction Status Date / Time Depakote AdvReac Severe confusion/c Uncoded 04/04/23 16:10 old Review of Systems Review of Systems ROS Unobtainable: All systems reviewed & are unremarkable except as noted in HPI and below Patient History Medical History Acquired hypothyroidism Allergies Benign essential tremor Bipolar 1 disorder Broken wrist (~09/2021) Chicken pox Chronic kidney disease, stage 3a Colorectal cancer (~2019) Eczema History of colon polyps (~2019) Kidney disease (~2009) Measles Mixed hyperlipidemia Mumps Parkinson's disease (~2020) Wears glasses Family History Father Parkinson's disease Mother Cancer Social History details: (Esmer), 1 son, 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 household members: spouse Smoking Status: Former smoker Smoking Status: Former smoker alcohol intake frequency: other Substance Use Type: does not use Exam Initial Vital Signs Initial Vital Signs: Vital Signs Temperature 98.2 F 05/25/23 18:56 Pulse Rate 55 L 05/25/23 18:56 Respiratory Rate 16 05/25/23 18:56 Blood Pressure 134/65 05/25/23 18:56 Pulse Oximetry 98 05/25/23 18:56 Oxygen Delivery Method Room Air 05/25/23 18:56 Const General: comfortable and No ill appearing HENMT Head: normal to inspection Nose: external nose normal Mouth: lip abnormal (Swollen right upper lip) Teeth and gingiva: other (Missing right upper incisor) Resp Effort & Inspection: normal respiratory effort Cardio Rate: regular rate GI Inspection: normal to inspection and non-distended Palpation: soft Back/Spine/Pelvis Cervical Spine: No cervical spinal tenderness Skin Other: Skin abrasions to his right upper lip and on the dorsum of his right wrist Neuro General: patient alert and patient awake Extrem Other: Lower extremities unremarkable. Pelvis is stable. He has no tenderness over the distal right radius Scores GCS Bernadette coma scale eye opening: Spontaneous Bernadette coma scale verbal response: Orientated Bernadette coma scale motor response: Obey commands Hancock coma scale total score: 15 Course Orders Ordered: ED Orders 05/25/23 19:08 CT cervical spine wo con Stat CT facial bones wo con Stat CT head/brain wo con Stat XR wrist RT min 3V Stat Discontinued Medications Acetaminophen (Acetaminophen 325 Mg Tablet) 650 mg PO NOW ONE Stop: 05/25/23 21:31 Last Admin: 05/25/23 21:44 Dose: 650 mg Documented By: KARLY Sodium Chloride (Normal Saline 0.9%) 1,000 mls @ 1,000 mls/hr IV BOLUS ONE Stop: 05/25/23 22:25 Last Infusion: 05/25/23 22:09 Dose: 0 mls/hr Documented By: Admin: 05/25/23 21:44 Dose: 1,000 mls/hr Documented By: KARLY Vital Signs Vital signs: Vital Signs - 8 hr 05/25/23 18:56 05/25/23 19:33 05/25/23 19:33 Temperature 98.2 F Pulse Rate 55 L 56 L Respiratory Rate 16 16 Blood Pressure 134/65 136/100 H Pulse Oximetry 98 98 Oxygen Delivery Method Room Air 05/25/23 20:00 05/25/23 20:00 05/25/23 20:30 Temperature Pulse Rate 55 L Respiratory Rate 18 Blood Pressure 134/73 134/72 Pulse Oximetry 98 Oxygen Delivery Method 05/25/23 20:30 05/25/23 21:00 05/25/23 21:00 Temperature Pulse Rate 54 L 55 L Respiratory Rate 13 15 Blood Pressure 123/69 Pulse Oximetry 98 98 Oxygen Delivery Method 05/25/23 21:30 05/25/23 21:31 05/25/23 21:31 Temperature Pulse Rate 55 L 55 L Respiratory Rate 20 20 Blood Pressure 138/73 Pulse Oximetry 98 98 Oxygen Delivery Method 05/25/23 22:00 05/25/23 22:00 Temperature Pulse Rate 57 L Respiratory Rate 23 Blood Pressure 151/77 H Pulse Oximetry 99 Oxygen Delivery Method Room Air MDM - Fall Imaging Data CT - cervical spine: Radiologist's Impression: PROCEDURE:? CT CERVICAL SPINE WO CON ? INDICATIONS:? fall with face injury ? TECHNIQUE:? Noncontrast 3 mm thick sections acquired from the skull base to the T4 level.? Sagittal and coronal reformats were then constructed.? For radiation dose reduction, the following was used:? automated exposure control, adjustment of mA and/or kV according to patient size.? ? COMPARISON:? None. ? FINDINGS:? Image quality:? Excellent.? ? Bones:? No fractures or dislocations.? Severe degenerative changes present including flowing syndesmophytes throughout the cervical spine.? Visualized superior ribs are intact.? ? Soft tissues:? Prevertebral soft tissues are normal in thickness.? No paravertebral hematomas.? No apical pneumothoraces.? ? ? IMPRESSION:? Severe degenerative change.? No acute cervical spine injury. CT facial bones: Radiologist's Impression: ROCEDURE:? CT FACIAL BONES WO CON ? INDICATIONS:? fall with facial injury ? TECHNIQUE:? Noncontrast 2.5 mm thick axial images acquired from the mandible through the frontal sinuses, with coronal and sagittal reformatting.? For radiation dose reduction, the following was used:? automated exposure control, adjustment of mA and/or kV according to patient size.? ? COMPARISON:? [facility], CT, CT HEAD/BRAIN WO CON, 08/21/2020, 12:06.? [facility], CT, CT HEAD/BRAIN WO CON, 05/25/2023, 19:17. ? FINDINGS:? Image quality:? Excellent.? ? Bones and teeth:? Right maxillary central incisor is missing.? Orbital hill are intact.? Sinus hill show no fracture or deformity.? Nasal bones and septum are intact.? Visualized portions of the mandible demonstrate no fractures or subluxation.? Zygomatic arches are intact.? Pterygoid plates are intact.? Visualized portions of the skull base and auditory canals are intact.? ? Sinuses:? Mucosal thickening in the left maxillary sinus.? Paranasal sinuses are otherwise aerated, without fluid levels, or mucocele.? Mastoid air cells are aerated.? ? Soft tissues:? No edema, masses, or fluid collections.? No enlarged lymph nodes.? No soft tissue lacerations or debris.? ? Vascular:? Visualized vascular structures appear normal in the absence of contrast.? Bony vascular foramina and canals are intact.? ? IMPRESSION:? No acute fracture. ? Right maxillary central incisor is missing. CT scan - head: Radiologist's Impression: PROCEDURE:? CT HEAD/BRAIN WO CON ? INDICATIONS:? fall with head injury ? TECHNIQUE:? Noncontrast 4.5 mm thick angled axial sections acquired from the foramen magnum to the vertex, with coronal and sagittal reformats.? For radiation dose reduction, the following was used:? automated exposure control, adjustment of mA and/or kV according to patient size.? ? COMPARISON:? [facility], CT, CT FACIAL BONES WO CON, 05/25/2023, 19:17.? [facility], CT, CT HEAD/BRAIN WO CON, 08/21/2020, 12:06. ? FINDINGS:? Image quality:? Excellent.? ? CSF spaces:? Basal cisterns are patent.? No extra-axial fluid collections.? Ventricles are normal in size and shape.? ? Brain:? No midline shift.? No intracranial masses or hemorrhage.? No area of hypodensity in a large vascular distribution to suggest acute infarction. Periventricular hypodensity consistent with chronic microvascular ischemic change. Age-related parenchymal loss. ? Skull and face:? Calvarium and visualized facial bones are intact, without suspicious lesions.? ? Sinuses:? Visualized sinuses and mastoids are clear.? ? IMPRESSION:? No acute intracranial abnormality. Extremity x-ray #1: Radiologist's Impression: PROCEDURE:? XR WRIST RT MIN 3V ? INDICATIONS: pain after fall ? TECHNIQUE:? 4 views of the wrist were acquired.? ? COMPARISON:? [facility], CR, XR WRIST LT MIN 3V, 09/07/2021, 20:15. ? FINDINGS:? ? Bones:? No definite fracture is visualized; however on the AP view a subtle radiolucent line extends to the articular surface of the distal radius.? No other fracture or dislocation.? No suspicious bony lesions. ? Scaphoid view:? The scaphoid is intact. ? Soft tissues:? No suspicious soft tissue calcifications.? ? IMPRESSION:? Question nondisplaced distal radial fracture versus vascular groove. MDM Narrative Medical decision making narrative: He has an abrasion and swelling to his right upper lip in his missing his right upper incisor. He was advised that he needs to follow-up with a dental provider regarding this. X-rays have some concern about a distal radius fracture however he is no discomfort over this area and he can flex and extend his right wrist and also supinate and pronate without any discomfort. He has several skin abrasions that knee no specific intervention here in the ER. This was a mechanical fall yesterday. He is no lower extremity injuries. No facial fractures. Head CT is unremarkable. I do suspect that his symptoms that he presents with today are most likely related to a concussion from his head injury yesterday also just the fall yesterday and then his Parkinson's disease as well. There was no indication for admission to the hospital. He was given Tylenol for his headache. Was given fluids because his states he has not had much to drink today and she was worried about the lithium that he is on potentially causing issues. Will discharge patient home with return precautions. Both patient and expressed understanding and agreement with plan. Discharge Plan Departure Patient Disposition: Home Clinical Impression: Abrasion of face, Avulsed tooth, Parkinson's disease Instructions: How to Prevent Falls Activity Restrictions/Additional Instructions: I do recommend that you continue to take all of your medications as directed. I also recommend that you follow-up with a dentist for further evaluation of the missing tooth. Return to the emergency department for new or worsening symptoms Prescriptions: No Action lithium carbonate 150 mg capsule 150 mg PO 5XD polyethylene glycol 3350 [LaxaClear] 17 gram/dose powder 8.5 g PO DAILY PRN (Reason: severe constipation) carbamazepine 200 mg tablet extended release 12 hr 200 mg PO BID Patient Comments: take 1 tablet by mouth twice a day levothyroxine 50 mcg tablet 50 mcg PO DAILY Patient Comments: take 1 tablet by mouth once daily lamotrigine 200 mg tablet extended release 24hr 200 mg PO BID Patient Comments: take 1 tablet by mouth twice a day rosuvastatin 10 mg tablet 10 mg PO DAILY Qty: 90 3RF cholecalciferol (vitamin D3) 50 mcg (2,000 unit) tablet 2,000 unit PO DAILY quetiapine 100 mg tablet 150 mg PO BEDTIME docusate sodium [Colace] 100 mg capsule 600 mg PO DAILY Benefiber Healthy Shape 5 gram/7.4 gram powder 5 g PO DAILY Rx Instructions: 2 tablespoons daily propranolol 20 mg tablet 20 mg PO BID Patient Comments: take 1 tablet by mouth twice a day carbidopa-levodopa 25-100 mg tablet See Rx Instructions PO QID Rx Instructions: orally four times daily; 1.5 tablet at 10 am; 2.5 tablets at 2pm; 2.5 tablets at 5 pm; 1.5 tablets at 10 pm. aspirin 325 mg Tablet 325 mg PO DAILY loratadine [Allerclear] 10 mg Tablet 10 mg PO DAILY Referrals: Og Larios MD [Primary Care Provider] - Stand Alone Forms: Patient Portal/API
[2023-05-25] MEDS: ACETAMINOPHEN 325 MG TABLET 650 MG PO (21:44)
[2023-05-25] MEDS: SODIUM CHLORIDE 0.9% 1,000 ML 1000 ML IV (21:44)
== END 2023-05-25 22:36 | disposition home or self-care (01) ==
PROVIDERS: Emergency Provider Emergency Medicine; PCP Internal Medicine
DX: S00.81XA Abrasion of other part of head, initial encounter (principal); S02.5XXA Fracture of tooth (traumatic), initial encounter for closed fracture; G20 Parkinson's disease; W01.0XXA Fall on same level from slipping, tripping and stumbling without subsequent striking against object, initial encounter; Z79.899 Other long term (current) drug therapy
CPT/HCPCS: 70450; 70486; 72125; 73110; 99284

== ENCOUNTER 2023-08-01 19:41 | Emergency (ER) | payer MEDICARE, OTHER, SELFPAY ==
[2023-08-01] VITALS (12 sets, daily range): BP systolic 120–160; BP diastolic 63–84; PULSE 42–60; RESP 12–18; TEMP 35.7–36.5; O2SAT 96–99
[2023-08-01] MEDS: ONDANSETRON 4 MG/2 ML INJ IV (20:12)
[2023-08-01 20:18] LABS: Add Manual Diff / Slide Review NO; Basophils Absolute Auto 0 /uL (0-100); Basophils Percent Auto 0.6 % (0-2); Eosinophils Absolute Auto 300 /uL (0-450); Eosinophils Percent Auto 3.4 % (2-4); Hematocrit 40.9 % (41-53); Hemoglobin 13.6 g/dL (13.5-17.5); Lymphocytes Absolute Auto 1100 /uL (1100-4500); Lymphocytes Percent Auto 14.4 % (25-40); Mean Corpuscular HGB Conc 33.2 % (30-36); Mean Corpuscular Hemoglobin 32.3 PG (26-34); Mean Corpuscular Volume 97.2 fL (80-100); Monocytes Absolute Auto 500 /uL (0-900); Monocytes Percent Auto 6.7 % (3-14); Neutrophils Absolute Auto 5700 /uL (1500-7000); Neutrophils Percent Auto 74.9 % (50-75); Platelet Count 215 X10^3/uL (150-400); Red Blood Cell Count 4.21 X10^6/uL (4.5-5.9); White Blood Cell Count 7.7 X10^3/uL (4.5-11.0)
[2023-08-01 20:28] LABS: Alanine Aminotransferase 9 IU/L (<50); Albumin 4.5 g/dL (3.5-5.0); Albumin Globulin Ratio 1.6 (1.0-2.8); Alkaline Phosphatase 123 U/L (38-126); Aspartate Aminotransferase 22 IU/L (17-59); BUN Creatinine Ratio 15.3 (6-22); Bilirubin Total 0.4 mg/dL (0.2-1.3); Blood Urea Nitrogen 21 mg/dL (9-20); Calcium 10.1 mg/dL (8.4-10.2); Carbon Dioxide 28 mmol/L (22-32); Chloride 103 mmol/L (98-107); Estimated Glomerular Filt Rate 55 mL/min (>60); Globulin 2.9 g/dL (1.7-4.1); Glucose 108 mg/dL (80-110); HEMOLYSIS 18 (0-50); Lipase 165 U/L (23-300); Potassium 4.3 mmol/L (3.4-5.1); Sodium 139 mmol/L (137-145); Total Protein 7.4 g/dL (6.3-8.2)
[2023-08-01] MEDS: SODIUM CHLORIDE 0.9% 1,000 ML 1000 ML IV ×2 (20:51→22:25)
--- NOTE | 2023-08-01 21:58 | ED_ITS ---
HPI - Abdominal Pain General Chief Complaint: Abdominal Pain Stated Complaint: V/blood in urine/Hx kidney disease/parkinsons Time Seen by Provider: 08/01/23 21:54 Source: family Mode of arrival: Wheelchair History of Present Illness HPI narrative: Patient is 72-year-old male history of Parkinson's presents today with vomiting. Reports that he threw up a handful times starting 7 but has now stopped. He does have issues with constipation has not had a bowel movement in 7 days. Son reports that there was some blood in his underwear probably from his urine. He denies fever chills or chest pain. reports that he is a little bit off today but sometimes Parkinson's his mental status waxes and wanes. No fever he is cool to touch. No mottling. Patient not really reporting any pain. Related Data Home Medications Medication Instructions Recorded Confirmed lithium carbonate 150 mg capsule 150 mg PO 5XD 11/08/18 07/14/23 aspirin 325 mg tablet 325 mg PO DAILY 09/24/20 07/14/23 loratadine 10 mg tablet 10 mg PO DAILY 09/24/20 07/14/23 (Allerclear) cholecalciferol (vitamin D3) 50 2,000 unit PO DAILY 02/03/22 07/14/23 mcg (2,000 unit) tablet docusate sodium 100 mg capsule 600 mg PO DAILY 02/03/22 07/14/23 (Colace) quetiapine 100 mg tablet 150 mg PO BEDTIME 02/03/22 07/14/23 wheat dextrin 5 gram/7.4 gram oral 5 g PO DAILY 02/03/22 07/14/23 powder (Benefiber Healthy Shape) polyethylene glycol 3350 17 8.5 g PO DAILY PRN severe 06/03/22 07/14/23 gram/dose oral powder (LaxaClear) constipation carbamazepine 200 mg 200 mg PO BID 07/26/22 07/14/23 tablet,extended release,12 hr lamotrigine 200 mg tablet,extended 200 mg PO BID 07/26/22 07/14/23 release 24 hr levothyroxine 50 mcg tablet 50 mcg PO DAILY 07/26/22 07/14/23 carbidopa 25 mg-levodopa 100 mg See Rx Instructions PO .COMPLEX 07/25/23 tablet glycopyrrolate 1 mg tablet 1 mg PO BID 07/25/23 propranolol 20 mg tablet 30 mg PO BID 07/25/23 Previous Rx's Medication Instructions Recorded rosuvastatin 10 mg tablet 10 mg PO DAILY #90 tabs 04/04/23 Allergies Allergy/AdvReac Type Severity Reaction Status Date / Time Depakote AdvReac Severe confusion/c Uncoded 07/14/23 16:33 old Patient History Medical History Acquired hypothyroidism Allergies Benign essential tremor Bipolar 1 disorder Broken wrist (~09/2021) Chicken pox Chronic kidney disease, stage 3a Colorectal cancer (~2019) Eczema History of colon polyps (~2019) Kidney disease (~2009) Measles Mixed hyperlipidemia Mumps Parkinson's disease (~2020) Wears glasses Family History Father Parkinson's disease Mother Cancer Social History details: (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 HEENT: Head atraumatic,EOMI, pupils reactive, face symmetric, [moist] mucous membranes CARDIOVASCULAR: Regular rate and rhythm without murmurs, rubs or gallops. RESPIRATORY: Breath sounds equal bilaterally, no wheezes rales or rhonchi. ABDOMEN: Soft, nontender. Normoactive bowel sounds all 4 quadrants. No guarding or rebound. EXTREMITIES: Normal range of motion, no clubbing or edema. Neurovascularly intact NEUROLOGICAL: Alert and oriented x4.Normal gait and speech. Very mild resting tremor SKIN: Warm, dry, no laceration, no petechiae, no rashes or lesions. Course Orders Ordered: ED Orders 08/01/23 20:00 Complete Blood Count AUTO DIFF Stat Comprehensive Metabolic Panel Stat Lactate (Lactic Acid) Stat Lipase Stat 08/01/23 22:04 CT abdomen pelvis w con Stat 08/01/23 22:38 Urine Microscopic Stat Discontinued Medications Sodium Chloride (Normal Saline 0.9%) 1,000 mls @ 1,000 mls/hr IV BOLUS ONE Stop: 08/01/23 21:47 Last Infusion: 08/01/23 22:10 Dose: Infused Documented By: Admin: 08/01/23 20:51 Dose: 1,000 mls/hr Documented By: Sodium Chloride (Normal Saline 0.9%) 1,000 mls @ 1,000 mls/hr IV BOLUS ONE Stop: 08/01/23 23:03 Last Infusion: 08/01/23 23:42 Dose: Infused Documented By: Admin: 08/01/23 22:25 Dose: 1,000 mls/hr Documented By: ROSAS Ondansetron HCl (Ondansetron 4 Mg Odt) 4 mg PO NOW PRN PRN Reason: Nausea And Vomiting Ondansetron HCl (Ondansetron 4 Mg/2 Ml Inj) 4 mg IV NOW PRN PRN Reason: Nausea And Vomiting Last Admin: 08/01/23 20:12 Dose: 4 mg Documented By: Vital Signs Vital signs: Vital Signs - 8 hr 08/01/23 19:56 08/01/23 19:59 08/01/23 20:00 Temperature 96.3 F L Pulse Rate 45 L 44 L 44 L Respiratory Rate 16 18 Blood Pressure 160/77 H Pulse Oximetry 99 98 99 Oxygen Delivery Method Room Air 08/01/23 20:01 08/01/23 20:01 08/01/23 20:30 Temperature Pulse Rate 45 L 43 L Respiratory Rate 16 Blood Pressure 142/84 H Pulse Oximetry 98 98 Oxygen Delivery Method 08/01/23 20:30 08/01/23 21:00 08/01/23 21:00 Temperature 97.7 F Pulse Rate 42 L Respiratory Rate 12 Blood Pressure 125/72 120/67 Pulse Oximetry 97 Oxygen Delivery Method Room Air 08/01/23 21:30 08/01/23 21:30 08/01/23 22:00 Temperature Pulse Rate 46 L Respiratory Rate 16 Blood Pressure 124/68 Pulse Oximetry 99 96 Oxygen Delivery Method 08/01/23 22:30 08/01/23 22:41 08/01/23 22:41 Temperature Pulse Rate 60 51 L Respiratory Rate 12 12 Blood Pressure 123/66 Pulse Oximetry 97 98 Oxygen Delivery Method Room Air 08/01/23 23:00 08/01/23 23:00 08/01/23 23:30 Temperature Pulse Rate 53 L Respiratory Rate 13 Blood Pressure 132/63 147/74 H Pulse Oximetry 98 Oxygen Delivery Method 08/01/23 23:30 Temperature Pulse Rate 60 Respiratory Rate 13 Blood Pressure Pulse Oximetry 97 Oxygen Delivery Method Room Air MDM - Abdominal Pain Lab Data 08/01/23 20:00 08/01/23 20:00 Labs: Lab Results 08/01/23 08/01/23 Range/Units 20:00 22:38 WBC 7.7 (4.5-11.0) X10^3/uL RBC 4.21 L (4.5-5.9) X10^6/uL Hgb 13.6 (13.5-17.5) g/dL Hct 40.9 L (41-53) % MCV 97.2 (80-100) fL MCH 32.3 (26-34) PG MCHC 33.2 (30-36) % RDW 13.0 (11.6-14.8) % Plt Count 215 (150-400) X10^3/uL Neut % (Auto) 74.9 (50-75) % Lymph % (Auto) 14.4 L (25-40) % [place] % (Auto) 6.7 (3-14) % Eos % (Auto) 3.4 (2-4) % Baso % (Auto) 0.6 (0-2) % Neut # (Auto) 5700 (3429-0436) /uL Lymph # (Auto) 1100 (8530-9406) /uL [place] # (Auto) 500 (0-900) /uL Eos # (Auto) 300 (0-450) /uL Baso # (Auto) 0 (0-100) /uL Sodium 139 (137-145) mmol/L Potassium 4.3 (3.4-5.1) mmol/L Chloride 103 (98-107) mmol/L Carbon Dioxide 28 (22-32) mmol/L BUN 21 H (9-20) mg/dL Creatinine 1.37 H (0.66-1.25) mg/dL Estimated GFR 55 L (>60) mL/min BUN/Creatinine Ratio 15.3 (6-22) Glucose 108 (80-110) mg/dL Lactate 1.0 (0.7-2.1) mmol/L Calcium 10.1 (8.4-10.2) mg/dL Total Bilirubin 0.4 (0.2-1.3) mg/dL AST 22 (17-59) IU/L ALT 9 (<50) IU/L Alkaline Phosphatase 123 (38-126) U/L Total Protein 7.4 (6.3-8.2) g/dL Albumin 4.5 (3.5-5.0) g/dL Globulin 2.9 (1.7-4.1) g/dL Albumin/Globulin Ratio 1.6 (1.0-2.8) Lipase 165 (23-300) U/L Urine RBC 0-1/hpf (0-5/HPF) Urine WBC None seen (0-5/HPF) Ur Squamous Epith Cells 0-1 /hpf (0-5/HPF) Urine Bacteria None seen (None) Ur Culture Indicated? Cult not indicated Imaging Data CT scan - abdomen/pelvis: Radiologist's Impression: PROCEDURE: CT ABDOMEN PELVIS W CON INDICATIONS: vomiting TECHNIQUE: After the administration of oral and IV contrast, axial sections were acquired from the lung bases to the pubic symphysis. Coronal and sagittal reformats were performed. For radiation dose reduction, the following was used: automated exposure control, adjustment of mA and/or kV according to patient size. COMPARISON: [facility], CT, CT ABDOMEN PELVIS WO [facility], 09/14/2021, 11:01. [facility], CT, CT ABDOMEN PELVIS W CON, 01/23/2021, 17:09. FINDINGS: Image quality: Excellent. Lung bases: Atelectasis in lingula. No focal consolidation. Heart: No significant findings. ABDOMEN: Liver: Normal size. Mild hepatic steatosis. Gallbladder: Gallbladder is distended. There is a calcified gallstone. Biliary ducts: Unremarkable. Pancreas: Unremarkable. Spleen: Unremarkable. Adrenal Glands: Unremarkable. Kidneys and Ureters: There is a 3 mm nonobstructive stone in right kidney. No hydronephrosis.. Stomach and Bowel: Stomach, small bowel loops, and colon are normal in caliber. There is a large amount of stool in colon. Normal appendix. Peritoneum: No abnormal intraperitoneal fluid. No free air. Ventral Wall: No hernia. Abdominal Nodes: No retroperitoneal or mesenteric adenopathy by size criteria. Vessels: Aorta and inferior vena cava are normal in size. Mild atherosclerotic calcifications. PELVIS: Pelvic Organs: Unremarkable. Bladder: Bladder is distended. Bladder wall thickness is normal. Pelvic Nodes: No enlarged lymph nodes. Miscellaneous: No inguinal hernias are seen. Bones: Unremarkable. IMPRESSION: 1. Distended gallbladder with a gallstone. No CT findings to suggest acute cholecystitis. If clinically indicated, HIDA scan may be helpful for further evaluation. 2. A large amount of stool in colon. 3. Mild hepatic steatosis. 4. A 3 mm nonobstructive right renal stone. No hydronephrosis. 5. Urinary bladder distention. Dictated by: Brendon Cason M.D. on 08/01/2023 at 22:41 ECG Data Interpretation: Normal sinus rhythm rate 45 [place] interval 216 QRS 190 QTC 448 P right bundle- branch block noted MDM Narrative Medical decision making narrative: Patient 72-year-old male presents today with an episode of nausea vomiting possibly some confusion. Vomiting has stopped he has been having some difficulty with urination possibly some hematuria. CT confirms a very large bladder Ramirez catheter placed or a L has return there is no evidence of hematuria or UTI. CT also shows gallstone. Home blood work does not show any elevated bilirubin or liver enzymes. He really tender in epigastric or right upper quadrant region. May or may not be he cause of vomiting. He has had 2 L of IV fluid here he is not been vomiting over number hours. He is not in any pain. He is afebrile without any leukocytosis or evidence of infection. At this time recommend outpatient follow-up. May require outpatient follow-up for gallstone. Blood work has been reviewed. Creatinine at baseline Discharge Plan Departure Patient Disposition: Home Clinical Impression: Acute urinary retention, Gallstone Instructions: How to Care for Your Ramirez Catheter -- Male, DI for Gallstones Activity Restrictions/Additional Instructions: *You have been diagnosed with urinary retention and gallstone *What to do: At this time you do have some urinary retention which may have caused some of your vomiting however you also a gallstone. Ramirez catheter will likely stay in place for couple of weeks. Please talk to your primary care provider about removal. You are also found to have a gallstone at this time a is not causing problems however if you continue to vomit please return to the ED. you may require elective surgery *Continue to take medications as directed *Follow up with your primary care provider in 2-3 days or call [phone] *Return to ER if you should have increasing vomiting pain confusion fever or any new, worsening or concerning symptoms Prescriptions: No Action lithium carbonate 150 mg capsule 150 mg PO 5XD carbidopa-levodopa 25-100 mg tablet See Rx Instructions PO .COMPLEX Rx Instructions: 2 at 10:00 am 2 ? at 2:00 pm 2 ? at 5:00 pm 2 at 10:00 pm propranolol 20 mg tablet 30 mg PO BID Patient Comments: take 1 tablet by mouth twice a day Rx Instructions: 1 ? at 10:00 am 1 ? at 2:00 pm glycopyrrolate 1 mg tablet 1 mg PO BID polyethylene glycol 3350 [LaxaClear] 17 gram/dose powder 8.5 g PO DAILY PRN (Reason: severe constipation) carbamazepine 200 mg tablet extended release 12 hr 200 mg PO BID Patient Comments: take 1 tablet by mouth twice a day levothyroxine 50 mcg tablet 50 mcg PO DAILY Patient Comments: take 1 tablet by mouth once daily lamotrigine 200 mg tablet extended release 24hr 200 mg PO BID Patient Comments: take 1 tablet by mouth twice a day rosuvastatin 10 mg tablet 10 mg PO DAILY Qty: 90 3RF cholecalciferol (vitamin D3) 50 mcg (2,000 unit) tablet 2,000 unit PO DAILY quetiapine 100 mg tablet 150 mg PO BEDTIME docusate sodium [Colace] 100 mg capsule 600 mg PO DAILY Benefiber Healthy Shape 5 gram/7.4 gram powder 5 g PO DAILY Rx Instructions: 2 tablespoons daily aspirin 325 mg Tablet 325 mg PO DAILY loratadine [Allerclear] 10 mg Tablet 10 mg PO DAILY Referrals: Og Larios MD [Primary Care Provider] - Stand Alone Forms: Patient Portal/API
--- NOTE | 2023-08-01 22:04 | DI.CT.S_ITS ---
PROCEDURE: CT ABDOMEN PELVIS W CON INDICATIONS: vomiting TECHNIQUE: After the administration of oral and IV contrast, axial sections were acquired from the lung bases to the pubic symphysis. Coronal and sagittal reformats were performed. For radiation dose reduction, the following was used: automated exposure control, adjustment of mA and/or kV according to patient size. COMPARISON: [facility], CT, CT ABDOMEN PELVIS WO CON, 09/14/2021, 11:01. [facility], CT, CT ABDOMEN PELVIS W CON, 01/23/2021, 17:09. FINDINGS: Image quality: Excellent. Lung bases: Atelectasis in lingula. No focal consolidation. Heart: No significant findings. ABDOMEN: Liver: Normal size. Mild hepatic steatosis. Gallbladder: Gallbladder is distended. There is a calcified gallstone. Biliary ducts: Unremarkable. Pancreas: Unremarkable. Spleen: Unremarkable. Adrenal Glands: Unremarkable. Kidneys and Ureters: There is a 3 mm nonobstructive stone in right kidney. No hydronephrosis.. Stomach and Bowel: Stomach, small bowel loops, and colon are normal in caliber. There is a large amount of stool in colon. Normal appendix. Peritoneum: No abnormal intraperitoneal fluid. No free air. Ventral Wall: No hernia. Abdominal Nodes: No retroperitoneal or mesenteric adenopathy by size criteria. Vessels: Aorta and inferior vena cava are normal in size. Mild atherosclerotic calcifications. PELVIS: Pelvic Organs: Unremarkable. Bladder: Bladder is distended. Bladder wall thickness is normal. Pelvic Nodes: No enlarged lymph nodes. Miscellaneous: No inguinal hernias are seen. Bones: Unremarkable. IMPRESSION: 1. Distended gallbladder with a gallstone. No CT findings to suggest acute cholecystitis. If clinically indicated, HIDA scan may be helpful for further evaluation. 2. A large amount of stool in colon. 3. Mild hepatic steatosis. 4. A 3 mm nonobstructive right renal stone. No hydronephrosis. 5. Urinary bladder distention. Dictated by: Brendon Cason M.D. on 08/01/2023 at 22:41 Approved by: Brendon Cason M.D. on 08/01/2023 at 22:47
--- NOTE | 2023-08-01 22:49 | PC.NURSE ---
3 way 20fr urinary catheter placed without complications. Immediate output of 1200ml total. Pt took home nightly medications of lithium, carvidopa-levodopa, statin, stool softner, okay per provider.
[2023-08-01 23:03] LABS: Bacteria Urine None Seen; Culture Indicated Urine Cult Not Indicated; RBC Urine 0-1/HPF (0-5/HPF); Squamous Epithelial Cell Urine 0-1 /HPF (0-5/HPF); WBC Urine None Seen (0-5/HPF)
== END 2023-08-01 23:47 | disposition home or self-care (01) ==
PROVIDERS: Emergency Provider Emergency Medicine; PCP Internal Medicine
DX: K80.20 Calculus of gallbladder without cholecystitis without obstruction (principal); R31.9 Hematuria, unspecified; R33.8 Other retention of urine; G20.A1 Parkinson's disease without dyskinesia, without mention of fluctuations
CPT/HCPCS: 36415; 74177; 80053; 81015; 83605; 83690; 85025; 96361; 96374; 99284; J2405; Q9967

== ENCOUNTER 2023-08-30 18:45 | Emergency (ER) | payer MEDICARE, OTHER, SELFPAY ==
[2023-08-30] VITALS (7 sets, daily range): BP systolic 105–146; BP diastolic 67–85; PULSE 55–59; RESP 18; TEMP 36.8–37; O2SAT 96–98; BMI 21.2
--- NOTE | 2023-08-30 18:42 | ED_ITS ---
HPI - General Adult General Chief complaint: Urogenital-Male Stated complaint: blood in catheter Time Seen by Provider: 08/30/23 18:45 History of Present Illness HPI narrative: 72-year-old gentleman with a history of Parkinson's disease, bipolar type 1, hypothyroidism chronic kidney disease was seen in the ER on August 01 diagnosed with significant urinary retention Ramirez catheter was placed. His home health care nurse was at home today and attempted to change Ramirez catheter and apparently encountered quite a bit of blood, pulled the catheter and sent the patient in for further evaluation. He is complaining of no pain. Reports no recent fevers, chills. His mental status does wax and wane with his Parkinson's disease but he seems to be close to his baseline. He is not entirely sure why he is in the emergency department at this time. Related Data Home Medications Medication Instructions Recorded Confirmed lithium carbonate 150 mg capsule 150 mg PO 5XD 11/08/18 08/04/23 aspirin 325 mg tablet 325 mg PO DAILY 09/24/20 08/04/23 loratadine 10 mg tablet 10 mg PO DAILY 09/24/20 08/04/23 (Allerclear) cholecalciferol (vitamin D3) 50 2,000 unit PO DAILY 02/03/22 08/04/23 mcg (2,000 unit) tablet docusate sodium 100 mg capsule 600 mg PO DAILY 02/03/22 08/04/23 (Colace) quetiapine 100 mg tablet 150 mg PO BEDTIME 02/03/22 08/04/23 wheat dextrin 5 gram/7.4 gram oral 5 g PO DAILY 02/03/22 08/04/23 powder (Benefiber Healthy Shape) polyethylene glycol 3350 17 8.5 g PO DAILY PRN severe 06/03/22 08/04/23 gram/dose oral powder (LaxaClear) constipation carbamazepine 200 mg 200 mg PO BID 07/26/22 08/04/23 tablet,extended release,12 hr lamotrigine 200 mg tablet,extended 200 mg PO BID 07/26/22 08/04/23 release 24 hr levothyroxine 50 mcg tablet 50 mcg PO DAILY 07/26/22 08/04/23 carbidopa 25 mg-levodopa 100 mg See Rx Instructions PO .COMPLEX 07/25/23 08/04/23 tablet glycopyrrolate 1 mg tablet 1 mg PO BID 07/25/23 08/04/23 propranolol 20 mg tablet 30 mg PO BID 07/25/23 08/04/23 Previous Rx's Medication Instructions Recorded rosuvastatin 10 mg tablet 10 mg PO DAILY #90 tabs 04/04/23 hospital bed #1 ea 08/04/23 tamsulosin 0.4 mg capsule 0.4 mg PO BEDTIME #30 caps 08/04/23 Allergies Allergy/AdvReac Type Severity Reaction Status Date / Time divalproex sodium AdvReac Mild confusion/c Verified 08/04/23 12:22 [From Depakote] old Review of Systems Review of Systems Narrative: Pertinent positive and negative findings as per HPI Patient History Medical History Slow transit constipation BPH w urinary obs/LUTS Broken wrist (~09/2021) Wears glasses Eczema Allergies Parkinson's disease (~2020) Mumps Measles Chicken pox Kidney disease (~2009) Colorectal cancer (~2019) History of colon polyps (~2019) Chronic kidney disease, stage 3a Acquired hypothyroidism Mixed hyperlipidemia Benign essential tremor Bipolar 1 disorder Family History Father Parkinson's disease Mother Cancer Social History details: (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 Slightly confused but able to participate with history. Well-nourished well-developed HEENT: Moist mucous membranes, normal sclera with reactive pupils, Respiratory: Lungs are clear to auscultation, no wheezing no rales no rhonchi. Full and symmetrical air movement Cardiac: Regular rate and rhythm no murmurs no bruits Abdomen: Soft, nontender, good bowel tones, no flank pain Skin: Warm and dry, no rashes Neurologic: Slight pill roll tremor and mild cogwheeling but moving all extremities without difficulty Extremities: No trauma, well perfused Psych: Cooperative, fluent speech, no dysarthria Medical Decision Making [facility] Narrative Medical decision making narrative: CC: 72-year-old gentleman with Parkinson's disease recent acute urinary retention Ramirez catheter has been in place for the last month and home health nurse was attempting to replace it today and ran into difficulties with bleeding since patient in for further evaluation Complicating co-morbidities: Parkinson's disease, lives at home with his home health care is available Data collected from: patient Medical records reviewed: Primary care notes from April, urgent care notes from July and ER notes regarding his acute urinary retention are all reviewed Differential considered: Difficult Ramirez placement, gross hematuria Exam documented above, pertinent findings include: Patient's exam is benign. He has no suprapubic or flank tenderness. Treatments: 18 [place] coude catheter is placed without difficulty. There is jhonny blood at the meatus minimal blood in the urine. Freely flowing urine. Re-evaluations: Urine is completely clear, patient is having no pain or tenderness. Discussion: 72-year-old gentleman with progressive Parkinson's disease at this point he is essentially bed-bound, he is too rigid to walk independently and apparently isn't using a wheelchair. His states that the BLS transport to the emergency department today is the 1st time he has been out of the house since the end of May. At this point Ramirez catheter is placed, draining appropriately the small amount of blood from the meatus has stopped bleeding. He is in no pain. There is no evidence of any other complications and due to his complete immobility and his 's inability to be able to get him out of the car and back into the home by herself a BLS transport home will be arranged. Discharge Plan Departure Patient Disposition: Home Clinical Impression: Complication of Ramirez catheter Qualifiers: Encounter type: initial encounter Qualified Code(s): T83.9XXA - Unspecified complication of genitourinary prosthetic device, implant and graft, initial encounter Parkinson's disease Qualifiers: Dyskinesia presence: unspecified whether dyskinesia Fluctuating manifestat ions: with fluctuating manifestations Qualified Code(s): G20.A2 - Parkinson's disease without dyskinesia, with fluctuations Instructions: How to Care for Your Ramirez Catheter -- Male Activity Restrictions/Additional Instructions: Thank you for coming in today I am sorry there was difficulty in replacing the catheter. In the emergency department we were able to place an 18 [place] coude catheter without difficulty. Your urine was draining nicely and did not have any blood in it. Please let home health know that this catheter will need to be replaced in about a month. I encourage you to follow up with your primary care provider with concerns or questions Prescriptions: No Action lithium carbonate 150 mg capsule 150 mg PO 5XD carbidopa-levodopa 25-100 mg tablet See Rx Instructions PO .COMPLEX Rx Instructions: 2 at 10:00 am 2 ? at 2:00 pm 2 ? at 5:00 pm 2 at 10:00 pm propranolol 20 mg tablet 30 mg PO BID Patient Comments: take 1 tablet by mouth twice a day Rx Instructions: 1 ? at 10:00 am 1 ? at 2:00 pm glycopyrrolate 1 mg tablet 1 mg PO BID polyethylene glycol 3350 [LaxaClear] 17 gram/dose powder 8.5 g PO DAILY PRN (Reason: severe constipation) carbamazepine 200 mg tablet extended release 12 hr 200 mg PO BID Patient Comments: take 1 tablet by mouth twice a day levothyroxine 50 mcg tablet 50 mcg PO DAILY Patient Comments: take 1 tablet by mouth once daily lamotrigine 200 mg tablet extended release 24hr 200 mg PO BID Patient Comments: take 1 tablet by mouth twice a day rosuvastatin 10 mg tablet 10 mg PO DAILY Qty: 90 3RF cholecalciferol (vitamin D3) 50 mcg (2,000 unit) tablet 2,000 unit PO DAILY quetiapine 100 mg tablet 150 mg PO BEDTIME docusate sodium [Colace] 100 mg capsule 600 mg PO DAILY Benefiber Healthy Shape 5 gram/7.4 gram powder 5 g PO DAILY Rx Instructions: 2 tablespoons daily tamsulosin 0.4 mg capsule 0.4 mg PO BEDTIME Qty: 30 5RF (DME) hospital bed See Rx Instructions .Route .MEDSUPPLY Qty: 1 0RF Rx Instructions: As directed aspirin 325 mg Tablet 325 mg PO DAILY loratadine [Allerclear] 10 mg Tablet 10 mg PO DAILY Referrals: Og Larios MD [Primary Care Provider] - Stand Alone Forms: Patient Portal/API
[2023-08-30] MEDS: LIDOCAINE 2% (GLYDO) 6 ML GEL TOP (19:19)
== END 2023-08-30 20:55 | disposition home or self-care (01) ==
PROVIDERS: Emergency Provider Emergency Medicine; PCP Internal Medicine
DX: T83.83XA Hemorrhage due to genitourinary prosthetic devices, implants and grafts, initial encounter (principal); G20.A2 Parkinson's disease without dyskinesia, with fluctuations
CPT/HCPCS: 51702; 99282; 99283

== ENCOUNTER → 2023-09-02 12:42 | Outpatient (CLI) | payer MEDICARE, OTHER, SELFPAY ==
--- NOTE | 2023-09-02 12:44 | DI.RAD.S_ITS ---
PROCEDURE: XR CHEST 2V INDICATIONS: Cough/Congestion 3+ Wks TECHNIQUE: 2 views of the chest were acquired. COMPARISON: [facility], CR, XR CHEST 2V, 07/27/2021, 19:23. FINDINGS: Surgical changes and devices: None. Lungs and pleura: Lungs are clear. No pleural effusions or pneumothorax. Mediastinum: Mediastinal contours are normal. Heart size is normal. Bones and chest wall: No suspicious bony abnormalities. Soft tissues appear unremarkable. IMPRESSION: No acute cardiopulmonary abnormality is seen. Note: The patient appears mildly rotated rightward, and tilted leftward. The inspiratory volume within the left hemithorax is mildly reduced, likely positional. A mass impinging on the left mainstem bronchus is not found. Dictated by: Francisco Dawson M.D. on 09/02/2023 at 13:08 Approved by: Francisco Dawson M.D. on 09/02/2023 at 13:08
== END ==
PROVIDERS: PCP Internal Medicine; Referring Provider Family Medicine; Visit Provider Family Medicine
DX: R05.8 Other specified cough (principal)
CPT/HCPCS: 71046

== ENCOUNTER 2023-09-05 21:11 | Emergency (ER) | payer MEDICARE, OTHER, SELFPAY ==
[2023-09-05 21:23] VITALS: BP 151/85; PULSE 48; RESP 16; TEMP 37; O2SAT 98; BMI 21.2
--- NOTE | 2023-09-05 22:00 | ED.MALEGU ---
HPI - Male Genitourinary General Chief complaint: Urogenital-Male Stated complaint: Bleeding around catheter Time Seen by Provider: 09/05/23 22:00 Source: patient and EMS Mode of arrival: EMS History of Present Illness HPI Narrative: Patient 72-year-old male history of Parkinson's bipolar hypothyroid chronic kidney disease urinary retention with indwelling Ramirez catheter that has been there since September 01. It was initially placed August 01. They were seen evaluated by Urology report that this will have a chronic indwelling catheter. He was seen evaluated on the with some bleeding. Today son and report that there was a couple hours where there was no output felt like he had to use the restroom and they were concerned. They report that his meatus bleeds daily but urine continues to be clear. He is not had any change in mental status he is not had any fever. He is chronic ongoing problems with swelling which seems to be getting worse. He is able to take medication. Related Data Home Medications Medication Instructions Recorded Confirmed lithium carbonate 150 mg capsule 150 mg PO 5XD 11/08/18 09/02/23 aspirin 325 mg tablet 325 mg PO DAILY 09/24/20 09/02/23 loratadine 10 mg tablet 10 mg PO DAILY 09/24/20 09/02/23 (Allerclear) cholecalciferol (vitamin D3) 50 2,000 unit PO DAILY 02/03/22 09/02/23 mcg (2,000 unit) tablet docusate sodium 100 mg capsule 600 mg PO DAILY 02/03/22 09/02/23 (Colace) quetiapine 100 mg tablet 150 mg PO BEDTIME 02/03/22 09/02/23 wheat dextrin 5 gram/7.4 gram oral 5 g PO DAILY 02/03/22 09/02/23 powder (Benefiber Healthy Shape) polyethylene glycol 3350 17 8.5 g PO DAILY PRN severe 06/03/22 09/02/23 gram/dose oral powder (LaxaClear) constipation carbamazepine 200 mg 200 mg PO BID 07/26/22 09/02/23 tablet,extended release,12 hr lamotrigine 200 mg tablet,extended 200 mg PO BID 07/26/22 09/02/23 release 24 hr levothyroxine 50 mcg tablet 50 mcg PO DAILY 07/26/22 09/02/23 carbidopa 25 mg-levodopa 100 mg See Rx Instructions PO .COMPLEX 07/25/23 09/02/23 tablet glycopyrrolate 1 mg tablet 1 mg PO BID 07/25/23 09/02/23 propranolol 20 mg tablet 30 mg PO BID 07/25/23 09/02/23 Previous Rx's Medication Instructions Recorded rosuvastatin 10 mg tablet 10 mg PO DAILY #90 tabs 04/04/23 hospital bed #1 ea 08/04/23 tamsulosin 0.4 mg capsule 0.4 mg PO BEDTIME #30 caps 08/04/23 Allergies Allergy/AdvReac Type Severity Reaction Status Date / Time divalproex sodium AdvReac Mild confusion/c Verified 09/02/23 13:06 [[facility] old Patient History Medical History (Updated 09/05/23 @ 22:20 by Rosalind Hyman DO) Dysphagia Slow transit constipation BPH w urinary obs/LUTS Broken wrist (~09/2021) Wears glasses Eczema Allergies Parkinson's disease (~2020) Mumps Measles Chicken pox Kidney disease (~2009) Colorectal cancer (~2019) History of colon polyps (~2019) Chronic kidney disease, stage 3a Acquired hypothyroidism Mixed hyperlipidemia Benign essential tremor Bipolar 1 disorder Family History Father Parkinson's disease Mother Cancer Social History marital status: details: (Esmer), 1 son, 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 household members: spouse lives independently: Yes occupational status: previously employed Smoking Status: Former smoker alcohol intake: never substance use type: does not use Smoking Status: Former smoker alcohol intake frequency: other Substance Use Type: does not use Exam Initial Vital Signs Initial Vital Signs: Vital Signs Temperature 98.6 F 09/05/23 21:23 Pulse Rate 48 L 09/05/23 21:23 Respiratory Rate 16 09/05/23 21:23 Blood Pressure 151/85 H 09/05/23 21:23 Pulse Oximetry 98 09/05/23 21:23 Oxygen Delivery Method Room Air 09/05/23 21:23 GENERAL: Alert pleasant 72-year-old male CARDIOVASCULAR: peripheral pulses in tact, cap refill <2 sec RESPIRATORY: No respiratory distress, speaks in full sentences without difficulty [ABDOMEN: Soft, nontender, no guarding or rebound] : Dried blood at meatus Ramirez catheter in place clear yellow urine EXTREMITIES: Normal range of motion, no clubbing or edema. Neurovascularly intact NEUROLOGICAL: Cranial nerves II through XII grossly intact. Normal gait and speech. SKIN: Warm, dry, no petechiae, no rashes or lesions. Course Vital Signs Vital signs: Vital Signs - 8 hr 09/05/23 21:23 09/05/23 22:30 Temperature 98.6 F 97.8 F Pulse Rate 48 L Respiratory Rate 16 Blood Pressure 151/85 H Pulse Oximetry 98 Oxygen Delivery Method Room Air MDM - Male Genitourinary MDM Narrative Medical decision making narrative: At this time patient has indwelling Ramirez catheter yellow urine in place he is got some bleeding at the meatus but no blood in his urine. He feels like he has to have a bowel movement. He has no altered mental status or confusion. Vitals are stable no evidence of sepsis. Education with Ramirez catheter care was done with son. At this time no need for any further workup. Discharge Plan Departure Patient Disposition: Home Clinical Impression: Malfunction of Ramirez catheter Instructions: How to Care for Your Ramirez Catheter -- Male Activity Restrictions/Additional Instructions: *You have been diagnosed with Ramirez catheter malfunction *What to do: This time you may adjust catheter flushed it 1 or 2 times if it still is not working then return to ED. *Continue to take medications as directed *Follow up with your primary care provider in 2-3 days or call [phone] *Return to ER if you should have blood in Ramirez catheter bag, persistent bleeding penis site increased confusion fever abdominal pain or any new, worsening or concerning symptoms Prescriptions: No Action lithium carbonate 150 mg capsule 150 mg PO 5XD carbidopa-levodopa 25-100 mg tablet See Rx Instructions PO .COMPLEX Rx Instructions: 2 at 10:00 am 2 ? at 2:00 pm 2 ? at 5:00 pm 2 at 10:00 pm propranolol 20 mg tablet 30 mg PO BID Patient Comments: take 1 tablet by mouth twice a day Rx Instructions: 1 ? at 10:00 am 1 ? at 2:00 pm glycopyrrolate 1 mg tablet 1 mg PO BID polyethylene glycol 3350 [LaxaClear] 17 gram/dose powder 8.5 g PO DAILY PRN (Reason: severe constipation) carbamazepine 200 mg tablet extended release 12 hr 200 mg PO BID Patient Comments: take 1 tablet by mouth twice a day levothyroxine 50 mcg tablet 50 mcg PO DAILY Patient Comments: take 1 tablet by mouth once daily lamotrigine 200 mg tablet extended release 24hr 200 mg PO BID Patient Comments: take 1 tablet by mouth twice a day rosuvastatin 10 mg tablet 10 mg PO DAILY Qty: 90 3RF cholecalciferol (vitamin D3) 50 mcg (2,000 unit) tablet 2,000 unit PO DAILY quetiapine 100 mg tablet 150 mg PO BEDTIME docusate sodium [Colace] 100 mg capsule 600 mg PO DAILY Benefiber Healthy Shape 5 gram/7.4 gram powder 5 g PO DAILY Rx Instructions: 2 tablespoons daily tamsulosin 0.4 mg capsule 0.4 mg PO BEDTIME Qty: 30 5RF (DME) hospital bed See Rx Instructions .Route .MEDSUPPLY Qty: 1 0RF Rx Instructions: As directed aspirin 325 mg Tablet 325 mg PO DAILY loratadine [Allerclear] 10 mg Tablet 10 mg PO DAILY Referrals: Og Larios MD [Primary Care Provider] - Stand Alone Forms: Patient Portal/API
[2023-09-05 22:30] VITALS: TEMP 36.6
== END 2023-09-05 22:41 | disposition home or self-care (01) ==
PROVIDERS: Emergency Provider Emergency Medicine; PCP Internal Medicine
DX: R33.9 Retention of urine, unspecified (principal); T83.018A Breakdown (mechanical) of other urinary catheter, initial encounter
CPT/HCPCS: 99281; 99282